=== PATIENT | male | born 1940 | race Caucasian/White ===

== ENCOUNTER 2020-08-02 11:01 | Emergency (ER) | payer MEDICARE, SELFPAY ==
--- NOTE | ~2020-08-02 | XR_ITS ---
EXAMINATION: XR chest 1V portable DATE: 08/02/2020 12:34 INDICATION: Fever, nausea, vomiting, dizziness and cough TECHNIQUE: frontal view of the chest was obtained. COMPARISON: None FINDINGS: Airspace opacities in the right mid and bilateral lower lung zones. No pleural effusion or pneumothor ax. The cardiomediastinal silhouette is within normal limits for AP technique. Surgical clips at the right axilla. IMPRESSION: 1. Opacities in the right mid and bilateral lower lung zones which could represent pneumonia, atelect asis, pulmonary edema or some combination thereof. Reviewed, dictated and finalized at location A. X MACHINE MECHANIC IMPRESSION: 1. Opacities in the right mid and bilateral lower lung zones which could repres ent pneumonia, atelectasis, pulmonary edema or some combination thereof.
[2020-08-02 10:56] VITALS: BP 161/99; PULSE 111; RESP 17; TEMP 37.1; O2SAT 94
--- NOTE | 2020-08-02 11:03 | ED.FEVER ---
HPI - Fever General Chief Complaint: Fever Stated Complaint: dizzy/cough/fever History of Present Illness HPI Narrative: 80 yo male brougt in by EMS from home for fever. He reportedly fell on . Since that time he has not been feeling well. Nausea, vomiting, cough, weakness. Today he began having having fevers as well. He has abrasions to his extremities from the fall. denies significant injury. Related Data Home Medications Medication Instructions Recorded Confirmed amoxicillin-pot clavulanate tablet 08/02/20 cephalexin 08/02/20 fluconazole 08/02/20 glimepiride mg 08/02/20 latanoprost drp 08/02/20 lisinopril 08/02/20 metformin mg 08/02/20 metoprolol tartrate 08/02/20 nitroglycerin 08/02/20 pioglitazone mg 08/02/20 simvastatin mg 08/02/20 sitagliptin [Januvia] mg 08/02/20 tamsulosin mg PO 08/02/20 08/02/20 Allergies Allergy/AdvReac Type Severity Reaction Status Date / Time No Known Drug Allergies Allergy Verified 08/02/20 13:52 Review of Systems Review of Systems: All systems reviewed & are unremarkable except as noted in HPI and below Constitutional: Constitutional: Reports fatigue and Reports fever(s) Eyes: Eyes: Reports no additional eye complaints ENT: Denies dizziness and Denies sore throat Cardiovascular: Cardiovascular: Denies chest pain Respiratory: Respiratory: Reports cough and Denies dyspnea Gastrointestinal: Gastrointestinal: Denies abdominal pain, Reports nausea and Reports vomiting Genitourinary: Genitourinary: Denies hematuria and Denies dysuria Musculoskeletal: Musculoskeletal: Denies back pain Neurologic: Denies confusion and Reports weakness PMFSH Past Medical History Medical History (Updated 08/04/20 @ 15:10 by Rinku Pearson MD) Diabetes mellitus HTN (hypertension) Social History Social History (Updated 08/04/20 @ 15:11 by Rinku Pearson MD) Living arrangements: with family Exam Const: General: no acute distress, alert and ill appearing Nutritional Appearance: well nourished Orientation/consciousness: patient oriented x3 HENMT: Head: normal to inspection Eyes: Pupils: Equal, round and reactive pupils present EOM: EOMs intact bilaterally Neck: Neck: normal visual inspection Resp: Effort & Inspection: normal respiratory effort Auscultation: clear to auscultation bilaterally Cardio: Rate: tachycardic Rhythm: regular rhythm GI: GI Palp: Yes Soft to palpation and No Tenderness to palpation present (GI) Skin: Other: Scattered abrasions Neuro: General: patient oriented x3, moves all extremities, no focal motor deficits and CN's II-XI intact bilaterally Speech: normal speech Gait exam (Neuro): Normal gait present Extrem: General: normal to inspection Course Vital Signs Vital signs: Vital Signs Temperature 37.1 C 08/02/20 10:56 Pulse Rate 111 H 08/02/20 10:56 Respiratory Rate 17 08/02/20 10:56 Blood Pressure 161/99 H 08/02/20 10:56 Pulse Oximetry 94 08/02/20 10:56 Temperature 37.1 C 08/02/20 10:56 Pulse Rate 97 08/02/20 14:57 Respiratory Rate 18 08/02/20 14:57 Blood Pressure 151/92 H 08/02/20 14:57 Pulse Oximetry 94 08/02/20 14:57 MDM - Fever MDM Narrative Medical decision making narrative: Symptoms supiscious for COVID-19. CXR shows mild infiltrate. Hyponatremia likely related to dehydration. Symptoms and vitals improved with treatment. I do not feel he requires admission at this time. He agrees and expresses understanding that he may need to return if symptoms worsen. Differential Diagnosis Differential diagnosis: Likely community acquired pneumonia, sepsis and other (COVID-19) Medical Records Attestation: I reviewed the patient's medical records. Lab Data Result diagrams: 08/02/20 11:38 08/02/20 11:38 Labs: Lab Results 08/02/20 08/02/20 08/02/20 Range/Units 11:38 11:38 11:38 WBC 8.3 (4.5-10.0) K/mm3 RBC 5.42 (4.6-6.20
--- NOTE | 2020-08-02 11:10 | ECG_ITS ---
Measurements Intervals [place] Rate: 104 P: 18 MD: 141 QRS: -5 QRSD: 85 T: 42 QT: 297 QTc: 392 Interpretive Statements SINUS TACHYCARDIA BORDERLINE ECG Electronically Signed On 08-02-2020 12:26:22 RECORD CHANGER by Melo Erazo D.O.
[2020-08-02 11:52] LABS: Basophils Percent Auto 0.2 % (0.2-1.2); Hemoglobin 15.1 g/dL (14.0-18.0); Immature Granulocyte Absolute 0.02 K/mm3 (0.00-0.031); Immature Granulocyte Percent A 0.2 % (0-0.5); Lymphocytes Absolute Auto 2.49 K/mm3 (0.9-3.2); Lymphocytes Percent Auto 30.1 % (18.3-44.2); Mean Corpuscular HGB Conc 33.6 g/dl (32-36); Mean Corpuscular Hemoglobin 27.9 pg (26-34); Mean Platelet Volume 8.8 fl (7.4-10.4); Monocytes Absolute Auto 0.6 K/mm3 (0.1-0.6); Neutrophils Absolute Auto 5.2 K/mm3 (1.3-6.7); Neutrophils Percent Auto 62.5 % (45.5-73.1); Platelet Count Result 131 k/mm3 (150-375); Red Blood Count 5.42 M/mm3 (4.6-6.20); Red Cell Distribution Width 14.3 % (11.5-14.5); White Blood Count 8.3 K/mm3 (4.5-10.0)
[2020-08-02 12:03] LABS: Lactic Acid Reflex 0.9 mmol/L (0.7-2.1)
[2020-08-02 12:07] LABS: Alanine Aminotransferase 39 U/L (4-50); Albumin Level 3.8 g/dL (3.5-5.1); Alkaline Phosphatase 68 U/L (38-126); Anion Gap 9 mmol/L (8-16); Aspartate Amino Transferase 58 U/L (17-59); Bilirubin,Total 0.7 mg/dL (0.2-1.3); Blood Urea Nitrogen 25 mg/dL (9-20); CRP 6.9 mg/dL (<1.0); Calcium 8.7 mg/dL (8.4-10.2); Carbon Dioxide 24 mmol/L (22-30); Chloride 95 mmol/L (98-107); Estimated CRCL calculation 47 ml/min; Estimated Glomerular Filt Rate 53; Glucose 92 mg/dL (75-110); Lipase 62 U/L (23-300); Potassium 4.8 mmol/L (3.4-5.0); Sodium 128 mmol/L (137-145)
[2020-08-02 12:09] LABS: INR 0.8; Prothrombin Time 11.9 Seconds (11.1-14.7)
[2020-08-02 12:10] LABS: Partial Thromboplastin Time 26.6 SECONDS (22.3-36.8)
[2020-08-02 12:40] VITALS: BP 146/95; PULSE 93; RESP 21; O2SAT 95
[2020-08-02] MEDS: SODIUM CHLORIDE 0.9% IV 1,000 ML 999 ML IV CONT (12:40)
[2020-08-02 13:42] VITALS: BP 138/99; PULSE 97; RESP 23; O2SAT 95
[2020-08-02] MEDS: ONDANSETRON INJ 4 MG/2 ML VIAL IV PUSH (13:51)
[2020-08-02 14:09] LABS: Add Urine Microscopic? YES; Appearance Urine Clear (Clear); Bilirubin Urine Negative (Negative); Blood Urine 2+ (Negative); Color Urine Yellow (Yellow); Glucose Urine UA Negative (Negative); Ketones Urine Trace mg/dL (Negative); Leukocyte Esterase Ur Negative LEU/UL (Negative); Mucus Urine Rare /lpf; Nitrate Urine Negative (Negative); Protein Urine 2+ mg/dL (Negative); RBC Urine 0-2 /hpf (0-2); Specific Grav Ur 1.015 (1.001-1.035); Urobilinogen Urine Negative mg/dL (<2.0); WBC Urine 0-3 /hpf
[2020-08-02 14:57] VITALS: BP 151/92; PULSE 97; RESP 18; O2SAT 94
[2020-08-02 20:47] LABS: SARS-CoV-2 RNA PCR Positive
== END 2020-08-02 15:18 | disposition home or self-care (01) ==
PROVIDERS: Emergency Provider Emergency Medicine; PCP Family Medicine
DX: U07.1 COVID-19 (principal); J12.82 Pneumonia due to coronavirus disease 2019; E11.9 Type 2 diabetes mellitus without complications; I10 Essential (primary) hypertension; Z79.84 Long term (current) use of oral hypoglycemic drugs; R00.0 Tachycardia, unspecified
CPT/HCPCS: 36415; 71045; 80053; 81001; 83605; 83690; 85025; 85610; 85730; 86140; 87040; 93005; 96361; 96374; 99284; C9803; J2405; J7030; U0003

== ENCOUNTER 2022-07-19 18:08 | Inpatient (IN) | payer MEDICARE, SELFPAY ==
[2022-07-19] VITALS (50 sets, daily range): BP systolic 123–187; BP diastolic 50–156; PULSE 105–138; RESP 14–29; TEMP 37.9; O2SAT 91–99; BMI 38.0
--- NOTE | ~2022-07-19 | US_ITS ---
EXAMINATION: US renal BI DATE: 07/23/2022 13:08 INDICATION: OSIEL. pls eval bladder for placement of mcdonlad TECHNIQUE: Multiple grayscale and Doppler ultrasound images of the kidneys were obtained. COMPARISON: CT abdomen and pelvis 07/22/2022 FINDINGS: The right kidney measures 11.7 x 5.2 x 4.9 cm. The left kidney measures 12.6 x 5.4 x 4.4 cm. The kidn eys demonstrate normal parenchymal echogenicity. There is no hydronephrosis. The bladder is mostly de compressed by a Mcdonald. IMPRESSION: Unremarkable renal sonogram findings. Reviewed, dictated and finalized at location K. AGE GRINDER
--- NOTE | ~2022-07-19 | XR_ITS ---
XR chest 2V DATE: 07/19/2022 18:55 INDICATION: Weakness. Hypertension. Diabetes mellitus. TECHNIQUE: AP and lateral views COMPARISON: 08/02/2020 portable AP chest FINDINGS: The lateral view is limited by motion. Surgical clips overlie the right axillary area and right lateral chest wall.. Diffuse idiopathic skeletal hyperostosis of the thoracolumbar spine. There is mild patchy bibasilar infiltrate and/or atelectasis. No pleural effusion or pulmonary vascular congestion or pneumothorax. Heart size may be within normal limits considering magnification associated with AP projection. IMPRESSION: Limited examination Bibasilar patchy infiltrate and/or atelectasis Reviewed, dictated and finalized at location A. ENT FORM ASSEMBLER
--- NOTE | ~2022-07-19 | CT_ITS ---
EXAMINATION: CT brain wo con DATE: 07/19/2022 18:46 INDICATION: Altered mental state TECHNIQUE: Computed tomography (CT) of the head was performed without intravenous contrast. The mA wa s adjusted according to patient size. Iterative reconstruction technique was employed. Exam dose: 60 5.33 mGy-cm total exam DLP. COMPARISON: None FINDINGS: Bilateral vertebral artery calcification and prominent bilateral carotid siphon internal ca rotid artery calcifications. There is nonspecific diminished attenuation of the cerebral white matter, likely due to chronic small vessel ischemic changes. No intracranial mass lesion or hemorrhage or cerebrovascular accident is detected. No midline shift o r mass effect. No subdural or epidural hematoma. Moderate cerebral volume loss, mild cerebellar volume loss. Approximately 9 x 16.5 mm mucous retention cyst or polyp in the posterior right maxillary sinus. The right frontal sinus is not developed. Included paranasal sinuses are otherwise unremarkable. Minimal fluid in the right mastoid air cells. Mastoid air cells are otherwise normally developed and aerated. IMPRESSION: Cerebral atherosclerosis and chronic small vessel ischemic changes of the cerebral white matter Cerebral and cerebellar volume loss No acute intracranial finding Reviewed, dictated and finalized at Location A. Reviewed, dictated and finalized at location A. WELDER
--- NOTE | ~2022-07-19 | CT_ITS ---
EXAMINATION: CT abdomen pelvis wo con DATE: 07/22/2022 09:54 INDICATION: Sepsis. Urinary tract infection. TECHNIQUE: Computed tomography (CT) of the abdomen and pelvis was performed without intravenous contr ast. Automated exposure control and iterative reconstruction technique were employed. The dose-length product was 1405.94 mGy-cm. COMPARISON: None. FINDINGS: The visualized portions of the lung bases demonstrate septal thickening with calcifications , architectural distortion, and relatively mild groundglass opacities. No pleural effusion. Calcified right hilar and mediastinal lymph nodes are consistent with old granulomatous disease. The heart siz e is normal. There are coronary artery calcifications. There are calcifications of aortic valve. No p ericardial effusion. The liver and spleen are normal. There are changes of cholecystectomy. The pancr eas, adrenal glands, and right kidney are normal. There is no urolithiasis. There is an 11 mm hemorrh agic cyst in left kidney. There is no urolithiasis. The bladder is decompressed by a Rosa catheter. The prostate is moderately enlarged. There is diverticulosis of the colon without evidence of diverti culitis. The appendix is normal. There are no dilated loops of bowel. There is a mildly enlarged left para-aortic lymph node. There is a left inguinal hernia containing fat. There is severe lumbar spond ylosis. There are bridging endplate osteophytes at multiple levels in the thoracic spine, consistent with diffuse idiopathic skeletal hyperostosis (DISH). IMPRESSION: 1. Mildly enlarged left para-aortic lymph node, likely reactive. 2. Chronic interstitial lung disease in a pattern of usual interstitial pneumonia (UIP). Reviewed, dictated and finalized at location A. OL AGE TEACHER IMPRESSION: 1. Mildly enlarged left para-aortic lymph node, likely reactive. 2. Chronic interstitial lung disease in a pattern of usual interstitial pneumon ia (UIP).
--- NOTE | ~2022-07-19 | US_ITS ---
Renal-Bladder ultrasound Clinical History: Acute renal sufficiency Technique: Real-time sonographic imaging of the kidneys and urinary bladder was performed. Findings: The right kidney measures 12.8 cm in length and the left kidney measures 12.2 cm. There is no hydronephrosis or renal calculus identified. Renal cortical echogenicity is within normal limits. No renal mass lesion is identified. The urinary bladder is collapsed around a Rosa catheter. Impression: Unremarkable ultrasound of the kidneys. Collapsed urinary bladder limits evaluation. Reviewed, dictated and finalized at location M. AGER HAND Impression: Unremarkable ultrasound of the kidneys. Collapsed urinary bladder limits evaluation.
--- NOTE | ~2022-07-19 | US_ITS ---
EXAMINATION: US venous doppler [facility] DATE: 07/22/2022 10:18 INDICATION: Lower limb edema. TECHNIQUE: Grayscale ultrasound images without and with compression and Doppler ultrasound images of the bilateral lower extremity veins were obtained. COMPARISON: None. FINDINGS: The visualized portions of right common femoral vein, profunda (deep) femoral vein, femoral vein, pop liteal vein, peroneal veins, posterior tibial veins, and greater saphenous vein outflow are patent. The visualized portions of left common femoral vein, profunda femoral vein, femoral vein, popliteal v ein, peroneal veins, posterior tibial veins, and greater saphenous vein outflow are patent. IMPRESSION: 1. No deep venous thrombosis. Reviewed, dictated and finalized at location A. OO IDENTIFIER
--- NOTE | ~2022-07-19 | US_ITS ---
US scrotum doppler DATE: 07/22/2022 18:23 INDICATION: Right scrotal swelling, tenderness, induration TECHNIQUE: Real-time and color flow imaging and Doppler analysis COMPARISON: 07/22/2022 CT abdomen pelvis FINDINGS: Right testicle measures 4.3 x 3.3 x 3.2 cm, left testicle 4.1 x 2.9 x 2.8 cm. There is symmetric homogeneous echotexture of the testicles without evidence of testicular mass lesio n. No evidence of testicular torsion. There is a complicated small right hydrocele and smaller left hydrocele. There is increased size and vascularity of the right epididymis suggesting right epididymitis. IMPRESSION: No testicular mass lesion or torsion Right epididymitis, complicated right hydrocele Reviewed, dictated and finalized at Location A. Reviewed, dictated and finalized at location A. INTENSIVE CARE UNIT
--- NOTE | ~2022-07-19 | XR_ITS ---
Portable chest x-ray Comparison: 07/19/2022 Clinical History: Leukocytosis Findings: There is probable bibasilar chronic interstitial disease. Cardiomediastinal silhouette is stable. Bones and soft tissues are unremarkable. Impression: Stable probable chronic bibasilar interstitial disease. Reviewed, dictated and finalized at [facility]. MODEL Impression: Stable probable chronic bibasilar interstitial disease.
--- NOTE | 2022-07-19 18:20 | ECG_ITS ---
Measurements Intervals [place] Rate: 105 P: 9 GA: 164 QRS: -3 QRSD: 103 T: 32 QT: 264 QTc: 349 Interpretive Statements SINUS TACHYCARDIA WITH OCCASIONAL SUPRAVENTRICULAR PREMATURE COMPLEXES COMPARED TO ECG 08/02/2020 11:07:08 NO SIGNIFICANT CHANGES Electronically Signed On 07-20-2022 17:50:00 CONTACT CENTER TEAM LEAD by Nessa Lynn M.D.
--- NOTE | 2022-07-19 18:20 | ECG_ITS ---
Measurements Intervals [place] Rate: 106 P: ME: 0 QRS: -13 QRSD: 98 T: 6 QT: 264 QTc: 352 Interpretive Statements LIKELY SINUS TACHYCARDIA, SIGNIFICANT BASELINE ARTIFACT COMPARED TO ECG 08/02/2020 11:07:08 BASELINE ARTIFACT LIMITS INTERPRETATION Electronically Signed On 07-20-2022 17:49:43 TILE MOLDER by Nessa Lynn M.D.
--- NOTE | 2022-07-19 18:28 | ED.GENADULT ---
HPI - General Adult General Chief complaint: Weakness Stated complaint: lethargic Time Seen by Provider: 07/19/22 18:11 History of Present Illness HPI narrative: Patient is an 82-year-old male with a history of diabetes, hypertension, hyperlipidemia presenting with generalized weakness. Patient was able to go to work today. States that he felt generally weak but felt at baseline. As he was getting ready to leave, he had an episode of vomiting and then he was trembly so his boss called his . The patient insisted on driving himself home. Unfortunately, on the drive home, he was noted to be driving recklessly so police stopped him. Police were concerned that he had been drinking but the patient states that he has never been a drinker. States that he has had multiple episodes of emesis and he feels nauseated if he moves. He denies headache, vision changes, numbness, weakness. Patient is on Eliquis. He denies any chest pain, lightheadedness, shortness of breath, abdominal pain, leg swelling, diarrhea. Related Data Home Medications Medication Instructions Recorded Confirmed glimepiride 4 mg tablet 4 mg PO DAILY 08/02/20 07/20/22 latanoprost 0.005 % eye drops 1 drp ophthalmic (eye) DAILY 08/02/20 07/20/22 lisinopril 10 mg tablet 10 mg PO DAILY 08/02/20 07/20/22 metformin 1,000 mg tablet 1,000 mg PO BID 08/02/20 07/20/22 metoprolol tartrate 25 mg tablet 25 mg PO BID 08/02/20 07/20/22 tamsulosin 0.4 mg capsule 0.4 mg PO DAILY 08/02/20 07/20/22 apixaban 5 mg tablet (Eliquis) 5 mg PO BID 07/20/22 07/20/22 ascorbic acid (vitamin C) 500 mg 500 mg PO DAILY 07/20/22 07/20/22 tablet cholecalciferol (vitamin D3) 50 50 mcg PO DAILY 07/20/22 07/20/22 mcg (2,000 unit) tablet cyanocobalamin (vitamin B-12) 1,000 mcg PO DAILY 07/20/22 07/20/22 1,000 mcg tablet finasteride 5 mg tablet (Proscar) 5 mg PO DAILY 07/20/22 07/20/22 furosemide 40 mg tablet 40 mg PO BID 07/20/22 07/20/22 insulin aspart U-100 100 unit/mL 8 unit subcut TIDWM 07/20/22 07/20/22 (3 mL) subcutaneous pen (Novolog Flexpen U-100 Insulin aspart) rosuvastatin 20 mg tablet 10 mg PO DAILY 07/20/22 07/20/22 timolol maleate 0.5 % eye drops 1 drp ophthalmic (eye) BID 07/20/22 07/20/22 Allergies Allergy/AdvReac Type Severity Reaction Status Date / Time No Known Drug Allergies Allergy Verified 08/02/20 13:52 Review of Systems Review of Systems: All systems reviewed & are unremarkable except as noted in HPI and below PMFSH Past Medical History Medical History (Updated 07/22/22 @ 11:06 by Mayuri Adasm MD) Atrial fibrillation Diabetes mellitus HTN (hypertension) Social History Social History Smoking status: Never smoker Alcohol intake: never Substance use: never Lack of Transportation: No Lack of Food: Never True Current Housing: I Have Housing Concerned About Future Housing: No Difficulty Paying Gas/Electric Bills: No Difficulty Paying for Meds: No Currently Unemployed: No Education: Decline to Answer Difficulty w/ Childcare or Family Care: No Gender identity (if verbalized by the patient): Male Spiritual care concerns: No Exam Narrative: GENERAL: Alert, cooperative, in no acute distress HEAD: Normocephalic, atraumatic. Small amount of emesis right face EYES: PERRLA and EOMI. ENT: Nares clear, no rhinorrhea or epistaxis. Mucous membranes moist. NECK: Supple. CHEST: Clear to auscultation. No respiratory distress. HEART: Tachycardic, regular rhythm. No murmur heard. Normal peripheral pulses. ABDOMEN: Soft, nontender, nondistended, normal active bowel sounds. EXTREMITIES: Normal range of motion. No edema. SKIN: Warm, dry, no rash. NEURO: No focal deficits. Alert and oriented x3. PSYCH: Normal mood and affect. Course Vital Signs Vital signs: Vital Signs Pulse Rate 108 H 07/19/22 18:22 Respiratory Rate 24 H 07/19/22 18:22 Pulse Oximetry 98 07/19/22
[2022-07-19] MEDS: SODIUM CHLORIDE 0.9% IV 1,000 ML 999 ML IV CONT ×2 (19:22→20:09)
[2022-07-19 19:29] LABS: Basophils Absolute Auto 0.1 K/mm3 (0.0-0.1); Basophils Percent Auto 0.4 % (0.2-1.2); Eosinophils Percent Auto 0.1 % (0-4.4); Hematocrit 36.4 % (42.0-52.0); Hemoglobin 11.6 g/dL (14.0-18.0); Immature Granulocyte Absolute 0.07 K/mm3 (0.00-0.031); Immature Granulocyte Percent A 0.4 % (0-0.5); Lymphocytes Percent Auto 17.3 % (18.3-44.2); Mean Corpuscular HGB Conc 31.9 g/dl (32-36); Mean Corpuscular Hemoglobin 28.4 pg (26-34); Mean Platelet Volume 8.7 fl (7.4-10.4); Neutrophils Absolute Auto 12.3 K/mm3 (1.3-6.7); Neutrophils Percent Auto 75.8 % (45.5-73.1); Nucleated Red Blood Cells Perc 0.1 % (0.0-0.2); Platelet Count Result 155 k/mm3 (150-375); Red Blood Count 4.09 M/mm3 (4.6-6.20); Red Cell Distribution Width 16.5 % (11.5-14.5); White Blood Count 16.2 K/mm3 (4.5-10.0)
[2022-07-19 19:37] LABS: Lactic Acid Reflex 1.4 mmol/L (0.7-2.0)
[2022-07-19 19:41] LABS: Ethanol < 10 mg/dL (<10)
[2022-07-19 19:57] LABS: Alanine Aminotransferase 47 U/L (6-50); Alkaline Phosphatase 72 U/L (38-126); Anion Gap 6 mmol/L (8-16); Aspartate Amino Transferase 42 U/L (17-59); Bilirubin,Total 0.7 mg/dL (0.2-1.3); Blood Urea Nitrogen 26 mg/dL (9-20); Calcium 8.4 mg/dL (8.4-10.2); Carbon Dioxide 31 mmol/L (22-30); Chloride 94 mmol/L (98-107); Estimated CRCL calculation 46 ml/min; Estimated Glomerular Filt Rate 53; Glucose 167 mg/dL (65-110); Lipase 59 U/L (23-300); Potassium 3.2 mmol/L (3.4-5.0); Sodium 131 mmol/L (137-145)
[2022-07-19] MEDS: cefTRIAXone 2 GM in SODIUM CHLORIDE 0.9% IV 100 ML 200 ML IVPB (20:33)
[2022-07-19 20:54] LABS: Add Urine Microscopic? YES; Appearance Urine Cloudy (Clear); Bilirubin Urine Negative (Negative); Blood Urine 2+ (Negative); Glucose Urine UA Negative (Negative); Ketones Urine Negative (Negative); Leukocyte Esterase Ur 3+ LEU/UL (Negative); Nitrate Urine Negative (Negative); Protein Urine 1+ mg/dL (Negative); Urobilinogen Urine 0.2 mg/dL (<2.0)
[2022-07-19 21:03] LABS: Bacteria Urine 4+ /hpf; Color Urine Light Yellow (Yellow); RBC Urine >75 /hpf (0-2); WBC Clumps Urine Present /HPF; WBC Urine >75 /hpf
[2022-07-19 21:07] LABS: Influenza A QL RT-PCR Negative (Negative); Influenza B QL RT-PCR Negative (Negative); SARS-CoV-2 RNA PCR Negative
--- NOTE | 2022-07-19 21:59 | PM.IMHP ---
H&P: HPI History of Present Illness Date/Time: 07/19/22 21:59 Chief Complaint: Altered mental status Narrative: This is an 82-year-old gentleman with a past medical history including but not limited to hypertension, [id number] diabetes mellitus, BPH, dyslipidemia, CKD presenting with generalized weakness. The patient is fully independent at 82, continues to drive and goes to work. 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 Patient was able to go to work today.? The patient has felt generally weak but felt at baseline.? As he was getting ready to leave work, he had an episode of vomiting and then he was shaky so his boss called his .? The patient insisted on driving himself home.? Unfortunately, on the drive home, he was noted to be swerving from [place] and had to be stopped by the local police.? Police were concerned that he had been drinking but the patient states that he has never been a drinker.? States that he has had multiple episodes of emesis and he feels nauseated if he moves.? He denies headache, vision changes, numbness, weakness.? Patient is on Eliquis.? He denies any chest pain, lightheadedness, shortness of breath, abdominal pain, diarrhea. O inspection, lower extremity edema is prominent. On arrival to the emergency department the patient had the following vital signs: a blood pressure of 144/57, pulse rate of 118, respiratory rate of 21, a pulse ox of 98% on 2 L high-flow nasal cannula. He he CBC shows a WBC of 16.2, hemoglobin 11.6, hematocrit 36.4 and a platelet count of 155. His chemistry shows a sodium of 131, potassium 3.2, sugar 94, serum bicarbonate 31, BUN 26, creatinine 1.3. Glucose is 167. Lactic acid is 1.4. Total bilirubin 0.7, AST 42, ALT 47, alkaline phosphatase 72. Total protein 7.0/albumin 4.0. Lipase is 59. TSH is pending. Urinalysis shows cloudy urine, 1+ protein, 2+ blood, 3+ leukocyte esterase, negative nitrate, RBC more than 75 WBC more than 75 and 4+ urine bacteria. Urine cultures and blood have been sent and are pending at the time of this dictation. Chest x-ray shows bibasilar patchy infiltrate and or atelectasis. Head CT shows cerebral atherosclerosis and chronic small-vessel ischemic changes of the cerebral white matter. Cerebral and cerebellar volume loss. No acute intracranial finding. the patient was appropriately started on ceftriaxone. Hospital Services was consulted for further evaluation and management. Review of Systems Review of Systems: All systems reviewed & are unremarkable except as noted in HPI and below Constitutional: Constitutional: Reports as per HPI Comments: Confusion. Eyes: Eyes: Reports as per HPI and Denies blurry vision ENT: Reports system reviewed and no additional complaints, except as documented, Denies epistaxis and Denies tinnitus Cardiovascular: Cardiovascular: Reports as per HPI, Denies leg edema and Reports palpitations Respiratory: Respiratory: Reports as per HPI, Denies cough and Denies dyspnea Gastrointestinal: Gastrointestinal: Reports as per HPI, Denies diarrhea, Denies nausea and Denies vomiting Genitourinary: Genitourinary: Reports as per HPI, Denies dysuria, Reports nocturia, Reports urinary frequency, Reports urinary hesitancy and Reports other Comments: Foul-smelling urine. Musculoskeletal: Musculoskeletal: Reports no additional musculoskeletal complaints, Reports as per HPI, Denies back pain, Denies arthralgias and Denies joint swelling Endocrine: Endocrine: Reports palpitations PMFSH Past Medical History Medical History Atrial fibrillation Diabetes mellitus HTN (hypertension) Social History Social History Smoking status: Never smoker Alcohol intake: never Substance use: never Lack of Transportation: No Lack of Food: Never True Current Housing: I Have Housing Co
[2022-07-20] VITALS (19 sets, daily range): BP systolic 94–102; BP diastolic 48–78; PULSE 64–130; RESP 16–20; TEMP 36.1–39.2; O2SAT 94–95
[2022-07-20] MEDS: METOPROLOL TARTRATE 25 MG TABLET PO ×3 (00:31→21:42)
[2022-07-20] MEDS: FUROSEMIDE INJ 40 MG/4 ML VIAL IV PUSH ×2 (00:31→08:21)
[2022-07-20] MEDS: METOPROLOL TARTRATE INJ 5 MG/5 ML VIAL 2.5 MG IV PUSH (00:37)
[2022-07-20] MEDS: POTASSIUM CHLORIDE 20 MEQ TABLET PO ×2 (01:04→17:40)
[2022-07-20] MEDS: AMIODARONE HCL 200 MG TABLET PO ×3 (01:27→17:10)
[2022-07-20 08:53] LABS: Glucose Point of Care 151 mg/dl (65-105)
[2022-07-20] MEDS: ROSUVASTATIN 10 MG TABLET PO (10:39)
[2022-07-20] MEDS: TAMSULOSIN HCL 0.4 MG CAPSULE PO (10:39)
[2022-07-20] MEDS: lisinopriL 10 MG TABLET PO (10:39)
[2022-07-20] MEDS: TIMOLOL MALEATE 0.5% OP SOLN 5 ML BOTTLE 1 DROP EACH EYE ×2 (10:39→17:12)
[2022-07-20] MEDS: APIXABAN 5 MG TABLET PO ×2 (10:39→17:10)
[2022-07-20 11:02] LABS: Basophils Absolute Auto 0.1 K/mm3 (0.0-0.1); Basophils Percent Auto 0.2 % (0.2-1.2); Hematocrit 38.2 % (42.0-52.0); Hemoglobin 12.2 g/dL (14.0-18.0); Immature Granulocyte Absolute 0.33 K/mm3 (0.00-0.031); Immature Granulocyte Percent A 1.1 % (0-0.5); Lymphocytes Absolute Auto 3.27 K/mm3 (0.9-3.2); Lymphocytes Percent Auto 11.1 % (18.3-44.2); Mean Corpuscular HGB Conc 31.9 g/dl (32-36); Mean Corpuscular Hemoglobin 28.6 pg (26-34); Mean Corpuscular Volume 89.7 fl (80-100); Mean Platelet Volume 8.7 fl (7.4-10.4); Monocytes Absolute Auto 2.3 K/mm3 (0.1-0.6); Monocytes Percent Auto 7.9 % (2.6-8.5); Neutrophils Absolute Auto 23.4 K/mm3 (1.3-6.7); Neutrophils Percent Auto 79.7 % (45.5-73.1); Platelet Count Result 167 k/mm3 (150-375); Red Blood Count 4.26 M/mm3 (4.6-6.20); Red Cell Distribution Width 16.7 % (11.5-14.5); White Blood Count 29.4 K/mm3 (4.5-10.0)
[2022-07-20 11:06] LABS: Hemoglobin A1C 8.2 % (<5.7)
[2022-07-20 11:07] LABS: Anion Gap 10 mmol/L (8-16); Blood Urea Nitrogen 24 mg/dL (9-20); Carbon Dioxide 29 mmol/L (22-30); Chloride 97 mmol/L (98-107); Estimated CRCL calculation 33 ml/min; Estimated Glomerular Filt Rate 36; Glucose 174 mg/dL (65-110); Potassium 3.4 mmol/L (3.4-5.0); Sodium 136 mmol/L (137-145)
[2022-07-20 11:54] LABS: Glucose Point of Care 233 mg/dl (65-105)
[2022-07-20] MEDS: INSULIN ASPART (*BKC) 100 UNITS/ML SUB-Q ×3 (12:18→17:11)
--- NOTE | 2022-07-20 16:11 | P.PNIM_ITS ---
Progress Note: A&P Assessment and Plan (1) Sepsis: Code(s): A41.9 - Sepsis, unspecified organism Status: Acute Assessment and Plan: septic on presentation evident by fever, tachycardia, leukocytosis in the set ting of acute UTI * lactic within normal limits * continue IV antibiotics as described below * patient was adequately rehydrated with IV fluids. avoid further IV fluids given history of CHF * T-max 102.6? this morning. Remaining afebrile this afternoon * increase in leukocytosis to 29.4 today. Monitor CBC with differential closely * blood cultures are pending (2) UTI (urinary tract infection): Code(s): N39.0 - Urinary tract infection, site not specified Status: Acute Assessment and Plan: urinalysis grossly abnormal on presentation * continue with IV ceftriaxone and vancomycin * urine cultures pending, await results and tailor antibiotics accordingly * continue with Rosa catheter while awaiting urine culture results then will plan for removal and voiding trial (3) Altered mental status: Code(s): R41.82 - Altered mental status, unspecified Status: Acute Assessment and Plan: likely secondary to urinary tract infection * mental status has returned back to baseline * plan as above (4) Acute kidney injury: Code(s): N17.9 - Acute kidney failure, unspecified Status: Acute Assessment and Plan: baseline creatinine appears to be 1.3. creatinine elevated to 1.8 today * likely secondary to IV diuresis * will hold furosemide at this time. Also hold metformin * hold off on IV fluids given history of CHF and risk for volume overload * anticipate creatinine to trend back to baseline * consider renal ultrasound if no improvement * monitor BMP closely (5) Hypokalemia: Code(s): E87.6 - Hypokalemia Status: Acute Assessment and Plan: resolved. Potassium 3.4 today * monitor BMP * will give an additional 20 mEq p.o. KCl given IV diuresis (6) Chronic heart failure: Code(s): I50.9 - Heart failure, unspecified Status: Acute Assessment and Plan: history of CHF, no prior echo available for review * patient noted to be mildly edematous on presentation, therefore given IV Lasix 40 mg IV b.i.d. * volume status appears improved and creatinine is elevated, therefore will discontinue IV Lasix at this time * monitor intake and output and weight daily * heart healthy diet (7) Atrial fibrillation: Code(s): I48.91 - Unspecified atrial fibrillation Status: Acute Assessment and Plan: Tachycardic on presentation, however suspect this is related to sepsis. Patient is in sinus rhythm. * Continue metoprolol tartrate and amiodarone * continue Eliquis for stroke prophylaxis * monitor on telemetry (8) Diabetes mellitus: Code(s): E11.9 - Type 2 diabetes mellitus without complications Status: Acute Assessment and Plan: A1c is 8.2 * continue Accu-Cheks, sliding scale insulin, hypoglycemic protocol * NovoLog 8 units t.i.d. with meals * hold home metformin and glimepiride Subjective Date/time seen: 07/20/22 16:11 Interval history: date of service: 07/20/2022 Jaguar Peters is an 82-year-old male with a history of diabetes mellitus, hypertension, atrial fibrillation, BPH who is seen in follow-up for urinary tract infection. Patient feels improved today though does endorse feeling fatigued. H
--- NOTE | 2022-07-20 16:11 | PM.IMPN ---
Progress Note: A&P Assessment and Plan (1) Sepsis: Code(s): A41.9 - Sepsis, unspecified organism Status: Acute Assessment and Plan: septic on presentation evident by fever, tachycardia, leukocytosis in the setting of acute UTI lactic within normal limits continue IV antibiotics as described below patient was adequately rehydrated with IV fluids. avoid further IV fluids given history of CHF T-max 102.6? this morning. Remaining afebrile this afternoon increase in leukocytosis to 29.4 today. Monitor CBC with differential closely blood cultures are pending (2) UTI (urinary tract infection): Code(s): N39.0 - Urinary tract infection, site not specified Status: Acute Assessment and Plan: urinalysis grossly abnormal on presentation continue with IV ceftriaxone and vancomycin urine cultures pending, await results and tailor antibiotics accordingly continue with Rosa catheter while awaiting urine culture results then will plan for removal and voiding trial (3) Altered mental status: Code(s): R41.82 - Altered mental status, unspecified Status: Acute Assessment and Plan: likely secondary to urinary tract infection mental status has returned back to baseline plan as above (4) Acute kidney injury: Code(s): N17.9 - Acute kidney failure, unspecified Status: Acute Assessment and Plan: baseline creatinine appears to be 1.3. creatinine elevated to 1.8 today likely secondary to IV diuresis will hold furosemide at this time. Also hold metformin hold off on IV fluids given history of CHF and risk for volume overload anticipate creatinine to trend back to baseline consider renal ultrasound if no improvement monitor BMP closely (5) Hypokalemia: Code(s): E87.6 - Hypokalemia Status: Acute Assessment and Plan: resolved. Potassium 3.4 today monitor BMP will give an additional 20 mEq p.o. KCl given IV diuresis (6) Chronic heart failure: Code(s): I50.9 - Heart failure, unspecified Status: Acute Assessment and Plan: history of CHF, no prior echo available for review patient noted to be mildly edematous on presentation, therefore given IV Lasix 40 mg IV b.i.d. volume status appears improved and creatinine is elevated, therefore will discontinue IV Lasix at this time monitor intake and output and weight daily heart healthy diet (7) Atrial fibrillation: Code(s): I48.91 - Unspecified atrial fibrillation Status: Acute Assessment and Plan: Tachycardic on presentation, however suspect this is related to sepsis. Patient is in sinus rhythm. Continue metoprolol tartrate and amiodarone continue Eliquis for stroke prophylaxis monitor on telemetry (8) Diabetes mellitus: Code(s): E11.9 - Type 2 diabetes mellitus without complications Status: Acute Assessment and Plan: A1c is 8.2 continue Accu-Cheks, sliding scale insulin, hypoglycemic protocol NovoLog 8 units t.i.d. with meals hold home metformin and glimepiride Subjective Date/time seen: 07/20/22 16:11 Interval history: date of service: 07/20/2022 Jaguar Peters is an 82-year-old male with a history of diabetes mellitus, hypertension, atrial fibrillation, BPH who is seen in follow-up for urinary tract infection. Patient feels improved today though does endorse feeling fatigued. He feels that his confusion has resolved. He denies dysuria, hematuria, urgency, or frequency. He did have urinary retention on presentation and Rosa catheter was started. Patient reports he has had issues with urinary retention in the past. Denies flank pain, abdominal pain, or back pain. No shortness of breath, cough, chest pain, or palpitations. Denies nausea or vomiting and is tolerating his diet. Endorsed fevers and chills but this seems to have resolved today. Marce
[2022-07-20 17:07] LABS: Glucose Point of Care 259 mg/dl (65-105)
[2022-07-20] MEDS: LATANOPROST 0.005% OP SOLN 2.5 ML BTL 1 DROP EACH EYE (21:42)
[2022-07-20] MEDS: cefTRIAXone 1 GM in DEXTROSE 5% IN WATER 50 ML IVPB (21:51)
[2022-07-21] VITALS (17 sets, daily range): BP systolic 82–141; BP diastolic 40–86; PULSE 81–140; RESP 18–24; TEMP 36.6–37.1; O2SAT 91–95
[2022-07-21 01:10] LABS: Glucose Point of Care 202 mg/dl (65-105)
[2022-07-21] MEDS: ONDANSETRON INJ 4 MG/2 ML VIAL IV PUSH ×2 (03:56→09:41)
[2022-07-21 05:25] LABS: Hematocrit 34.6 % (42.0-52.0); Mean Corpuscular HGB Conc 31.8 g/dl (32-36); Mean Corpuscular Hemoglobin 28.6 pg (26-34); Mean Corpuscular Volume 90.1 fl (80-100); Mean Platelet Volume 8.8 fl (7.4-10.4); Platelet Count Result 151 k/mm3 (150-375); Red Blood Count 3.84 M/mm3 (4.6-6.20); Red Cell Distribution Width 16.5 % (11.5-14.5); White Blood Count 25.4 K/mm3 (4.5-10.0)
[2022-07-21 05:40] LABS: Alanine Aminotransferase 41 U/L (6-50); Albumin Level 2.9 g/dL (3.5-5.1); Alkaline Phosphatase 64 U/L (38-126); Anion Gap 5 mmol/L (8-16); Aspartate Amino Transferase 70 U/L (17-59); Bilirubin,Total 0.9 mg/dL (0.2-1.3); Blood Urea Nitrogen 39 mg/dL (9-20); Calcium 7.5 mg/dL (8.4-10.2); Carbon Dioxide 29 mmol/L (22-30); Chloride 95 mmol/L (98-107); Estimated CRCL calculation 25 ml/min; Estimated Glomerular Filt Rate 26; Glucose 190 mg/dL (65-110); Potassium 3.3 mmol/L (3.4-5.0); Sodium 129 mmol/L (137-145)
[2022-07-21 07:10] LABS: Band Neutrophils Percent 16 % (0-6); Lymphocytes Absolute Manual 2.28 K/mm3 (1.1-4.5); Metamyelocytes Percent 1 %; Monocytes Absolute Manual 1.52 K/mm3 (0.1-0.90); Monocytes Percent Manual 6 % (3-9); Neutrophils Absolute Manual 21.33 K/mm3 (1.3-6.7); Neutrophils Percent Manual 68 % (46-73); Platelet Estimate Adequate (Adequate); Schistocytes None Seen (NORMAL); Total Cells Counted 100
[2022-07-21] MEDS: METOPROLOL TARTRATE 25 MG TABLET PO ×2 (07:45→21:48)
[2022-07-21] MEDS: SODIUM CHLORIDE 0.9% IV 500 ML IV CONT ×3 (08:30→18:41)
[2022-07-21 08:33] LABS: Glucose Point of Care 175 mg/dl (65-105)
[2022-07-21] MEDS: CHOLECALCIFEROL 1,000 UNITS TABLET 2000 UNITS PO (08:33)
[2022-07-21] MEDS: FINASTERIDE 5 MG TABLET PO (08:33)
[2022-07-21] MEDS: TAMSULOSIN HCL 0.4 MG CAPSULE PO (08:33)
[2022-07-21] MEDS: CYANOCOBALAMIN 1,000 MCG TABLET 1000 MCG PO (08:34)
[2022-07-21] MEDS: ASCORBIC ACID 500 MG TABLET PO (08:34)
[2022-07-21] MEDS: APIXABAN 5 MG TABLET PO ×2 (08:34→20:04)
[2022-07-21] MEDS: ROSUVASTATIN 10 MG TABLET PO (08:34)
--- NOTE | 2022-07-21 08:34 | PCOTNOTE ---
Per RN hold therapy for morning due to decreased blood pressure. Patient additionally has bedrest orders in at this time, RN aware. Will follow.
[2022-07-21] MEDS: TIMOLOL MALEATE 0.5% OP SOLN 5 ML BOTTLE 1 DROP EACH EYE (08:35)
[2022-07-21] MEDS: AMIODARONE HCL 200 MG TABLET PO ×2 (10:33→20:04)
[2022-07-21] MEDS: cefTRIAXone 2 GM in SODIUM CHLORIDE 0.9% IV 100 ML 200 ML IVPB (12:17)
[2022-07-21 12:39] LABS: Glucose Point of Care 222 mg/dl (65-105)
--- NOTE | 2022-07-21 12:45 | P.PNIM_ITS ---
Progress Note: A&P Assessment and Plan (1) Sepsis: Code(s): A41.9 - Sepsis, unspecified organism Status: Acute Assessment and Plan: septic on presentation evident by fever, tachycardia, leukocytosis in the set ting of acute UTI * lactic within normal limits * continue IV antibiotics as described below * patient tachycardic up to 140s with soft BP in the 80s systolic today secondary to sepsis. Received 500 cc IV fluid bolus with improvement in heart rate and blood pressure. Hold on further IV fluids at this time given history of CHF to avoid volume overload. Monitor volume status, blood pressures, heart rate closely * T-max 102.6? yesterday. Remaining afebrile today * slight improvement in leukocytosis to 25.4 today. Monitor CBC with differential closely * blood cultures are pending, negative to date (2) UTI (urinary tract infection): Code(s): N39.0 - Urinary tract infection, site not specified Status: Acute Assessment and Plan: urinalysis grossly abnormal on presentation * Urine culture with growth of >100k Klebsiella pneumoniae * Increase IV ceftriaxone to 2 g daily in light of sepsis * Vancomycin discontinued based on culture results * Continue with Mcdonald catheter at this time. Plan for removal and voiding trial pending improvement of acute infection (3) Altered mental status: Code(s): R41.82 - Altered mental status, unspecified Status: Resolved Assessment and Plan: likely secondary to urinary tract infection * mental status has returned back to baseline * plan as above (4) Acute kidney injury: Code(s): N17.9 - Acute kidney failure, unspecified Status: Acute Assessment and Plan: Baseline creatinine appears to be 1.3. Creatinine elevated to 2.4 today * likely prerenal secondary to dehydration/diuresis vs ATN from acute infection * furosemide on hold * discontinued vancomycin. this may be contributing to worsened renal function * metformin and lisinopril on hold * obstructive etiology unlikely as patient has draining mcdonald catheter * renal US unremarkable, no evidence of hydronephrosis or renal calculi * received 500 cc IV fluid bolus today. Hold on further IV fluids as noted above * monitor BMP closely and consider nephrology consultation if worsening renal function (5) Hypokalemia: Code(s): E87.6 - Hypokalemia Status: Acute Assessment and Plan: Potassium 3.3 today * monitor BMP * supplemet KCl 20 mEq (6) Chronic heart failure: Code(s): I50.9 - Heart failure, unspecified Status: Acute Assessment and Plan: history of CHF, no prior echo available for review * patient noted to be mildly edematous on presentation, therefore given IV Lasix 40 mg IV b.i.d. * volume status improved and with elevated creatinine, lasix is on hold * monitor intake and output and weigh daily * heart healthy diet (7) Atrial fibrillation: Code(s): I48.91 - Unspecified atrial fibrillation Status: Acute Assessment and Plan: Tachycardic on presentation, however suspect this is related to sepsis. Patient is in sinus rhythm. * Continue metoprolol tartrate and amiodarone * continue Eliquis for stroke prophylaxis * monitor on telemetry (8) Diabetes mellitus: Code(s): E11.9 - Type 2 diabetes mellitus without complications Status: Acute Assessment and Plan: A1c is 8.2 * continue Accu-Cheks, sliding scale insulin, hypoglycemic protocol * Nov
--- NOTE | 2022-07-21 12:45 | PM.IMPN ---
Progress Note: A&P Assessment and Plan (1) Sepsis: Code(s): A41.9 - Sepsis, unspecified organism Status: Acute Assessment and Plan: septic on presentation evident by fever, tachycardia, leukocytosis in the setting of acute UTI lactic within normal limits continue IV antibiotics as described below patient tachycardic up to 140s with soft BP in the 80s systolic today secondary to sepsis. Received 500 cc IV fluid bolus with improvement in heart rate and blood pressure. Hold on further IV fluids at this time given history of CHF to avoid volume overload. Monitor volume status, blood pressures, heart rate closely T-max 102.6? yesterday. Remaining afebrile today slight improvement in leukocytosis to 25.4 today. Monitor CBC with differential closely blood cultures are pending, negative to date (2) UTI (urinary tract infection): Code(s): N39.0 - Urinary tract infection, site not specified Status: Acute Assessment and Plan: urinalysis grossly abnormal on presentation Urine culture with growth of >100k Klebsiella pneumoniae Increase IV ceftriaxone to 2 g daily in light of sepsis Vancomycin discontinued based on culture results Continue with Mcdonald catheter at this time. Plan for removal and voiding trial pending improvement of acute infection (3) Altered mental status: Code(s): R41.82 - Altered mental status, unspecified Status: Resolved Assessment and Plan: likely secondary to urinary tract infection mental status has returned back to baseline plan as above (4) Acute kidney injury: Code(s): N17.9 - Acute kidney failure, unspecified Status: Acute Assessment and Plan: Baseline creatinine appears to be 1.3. Creatinine elevated to 2.4 today likely prerenal secondary to dehydration/diuresis vs ATN from acute infection furosemide on hold discontinued vancomycin. this may be contributing to worsened renal function metformin and lisinopril on hold obstructive etiology unlikely as patient has draining mcdonald catheter renal US unremarkable, no evidence of hydronephrosis or renal calculi received 500 cc IV fluid bolus today. Hold on further IV fluids as noted above monitor BMP closely and consider nephrology consultation if worsening renal function (5) Hypokalemia: Code(s): E87.6 - Hypokalemia Status: Acute Assessment and Plan: Potassium 3.3 today monitor BMP supplemet KCl 20 mEq (6) Chronic heart failure: Code(s): I50.9 - Heart failure, unspecified Status: Acute Assessment and Plan: history of CHF, no prior echo available for review patient noted to be mildly edematous on presentation, therefore given IV Lasix 40 mg IV b.i.d. volume status improved and with elevated creatinine, lasix is on hold monitor intake and output and weigh daily heart healthy diet (7) Atrial fibrillation: Code(s): I48.91 - Unspecified atrial fibrillation Status: Acute Assessment and Plan: Tachycardic on presentation, however suspect this is related to sepsis. Patient is in sinus rhythm. Continue metoprolol tartrate and amiodarone continue Eliquis for stroke prophylaxis monitor on telemetry (8) Diabetes mellitus: Code(s): E11.9 - Type 2 diabetes mellitus without complications Status: Acute Assessment and Plan: A1c is 8.2 continue Accu-Cheks, sliding scale insulin, hypoglycemic protocol NovoLog 8 units t.i.d. with meals hold home metformin and glimepiride Time Spent With Patient Time with patient: 25 - 35 minutes Subjective Date/time seen: 07/21/22 12:45 Interval history: Date of service: 07/21/2022 Jaguar Peters is an 82-year-old male with a history of diabetes mellitus, hypertension, atrial fibrillation, BPH who is seen in follow-up for urinary tract infection. He feels weak and drowsy. He has poor appetite. He
[2022-07-21] MEDS: INSULIN ASPART (*BKC) 100 UNITS/ML SUB-Q ×3 (13:27→17:46)
--- NOTE | 2022-07-21 17:24 | PM.EVENT ---
Event Note Event Note Event Note: This is an 82-year-old male patient who has a history of atrial fibrillation. The patient is currently on amiodarone. His blood pressure has dropped and his heart rate is up in the 120s. He has had several boluses. The patient is being transferred to IMU due to the AFib RVR. I did order some digoxin for him. In the event that his heart rate does not come down then we will do amiodarone drip.
[2022-07-21 17:34] LABS: Glucose Point of Care 222 mg/dl (65-105)
--- NOTE | 2022-07-21 19:02 | PC.NURSE ---
This patient, Jaguar Peters, was transferred to IMU on 07/21/22 at 1903. Personal belongings sent with patient. Report given to Arely VELAZQUEZ. Appropriate documentation sent with patient.
--- NOTE | 2022-07-21 19:08 | PC.NURSE ---
Did not administer Amiodarone and Eliquis before transfer to IMU. Called pharmacy and had sent to IMU.
--- NOTE | 2022-07-21 19:08 | PC.NURSE ---
This patient, Jaguar Peters, was received from [ [phone]] on 07/21/22 at 1900. Patient/family oriented to unit policies and routines.
[2022-07-21] MEDS: DIGOXIN INJ 250 MCG/ML 2 ML AMP (*BKC) IV PUSH (20:04)
[2022-07-21 21:34] LABS: Glucose Point of Care 171 mg/dl (65-105)
[2022-07-21] MEDS: LATANOPROST 0.005% OP SOLN 2.5 ML BTL 1 DROP EACH EYE (21:48)
[2022-07-22] VITALS (20 sets, daily range): BP systolic 98–129; BP diastolic 44–99; PULSE 76–132; RESP 20–22; TEMP 35.7–37.1; O2SAT 94–99
[2022-07-22 06:10] LABS: Hemoglobin 10.6 g/dL (14.0-18.0); Mean Corpuscular HGB Conc 32.1 g/dl (32-36); Mean Corpuscular Hemoglobin 28.7 pg (26-34); Mean Corpuscular Volume 89.4 fl (80-100); Mean Platelet Volume 8.7 fl (7.4-10.4); Platelet Count Result 146 k/mm3 (150-375); Red Blood Count 3.69 M/mm3 (4.6-6.20); Red Cell Distribution Width 16.2 % (11.5-14.5); White Blood Count 25.9 K/mm3 (4.5-10.0)
[2022-07-22 06:41] LABS: Alanine Aminotransferase 35 U/L (6-50); Albumin Level 2.7 g/dL (3.5-5.1); Alkaline Phosphatase 77 U/L (38-126); Anion Gap 10 mmol/L (8-16); Aspartate Amino Transferase 49 U/L (17-59); Bilirubin,Total 0.6 mg/dL (0.2-1.3); Blood Urea Nitrogen 56 mg/dL (9-20); Calcium 7.5 mg/dL (8.4-10.2); Carbon Dioxide 24 mmol/L (22-30); Chloride 95 mmol/L (98-107); Estimated CRCL calculation 16 ml/min; Estimated Glomerular Filt Rate 15; Glucose 127 mg/dL (65-110); Potassium 3.5 mmol/L (3.4-5.0); Sodium 129 mmol/L (137-145)
[2022-07-22 07:37] LABS: Glucose Point of Care 130 mg/dl (65-105)
[2022-07-22] MEDS: INSULIN ASPART (*BKC) 100 UNITS/ML SUB-Q ×4 (08:16→17:39)
[2022-07-22] MEDS: AMIODARONE HCL 200 MG TABLET PO ×2 (08:17→17:36)
[2022-07-22] MEDS: METOPROLOL TARTRATE 25 MG TABLET PO ×2 (08:17→21:37)
[2022-07-22] MEDS: SODIUM CHLORIDE 0.9% IV 1,000 ML 100 ML IV CONT ×2 (08:18→19:46)
[2022-07-22] MEDS: APIXABAN 5 MG TABLET PO ×2 (08:18→17:36)
[2022-07-22] MEDS: TIMOLOL MALEATE 0.5% OP SOLN 5 ML BOTTLE 1 DROP EACH EYE ×2 (08:18→17:37)
[2022-07-22 09:01] LABS: Band Neutrophils Percent 11 % (0-6); Lymphocytes Absolute Manual 2.33 K/mm3 (1.1-4.5); Monocytes Absolute Manual 2.33 K/mm3 (0.1-0.90); Monocytes Percent Manual 9 % (3-9); Neutrophils Absolute Manual 21.23 K/mm3 (1.3-6.7); Neutrophils Percent Manual 71 % (46-73); Total Cells Counted 100
[2022-07-22 09:02] LABS: Schistocytes None Seen (NORMAL)
--- NOTE | 2022-07-22 10:09 | PCOTNOTE ---
Patient currently out of the room at this time. Per RN, Patient is down having a CT and a venous doppler.
[2022-07-22] MEDS: FINASTERIDE 5 MG TABLET PO (10:21)
[2022-07-22] MEDS: ROSUVASTATIN 10 MG TABLET PO (10:21)
[2022-07-22] MEDS: TAMSULOSIN HCL 0.4 MG CAPSULE PO (10:21)
[2022-07-22] MEDS: CHOLECALCIFEROL 1,000 UNITS TABLET 2000 UNITS PO (10:21)
[2022-07-22] MEDS: CYANOCOBALAMIN 1,000 MCG TABLET 1000 MCG PO (10:22)
[2022-07-22] MEDS: ASCORBIC ACID 500 MG TABLET PO (10:22)
[2022-07-22] MEDS: cefTRIAXone 2 GM in SODIUM CHLORIDE 0.9% IV 100 ML 200 ML IVPB (10:23)
[2022-07-22 12:09] LABS: Glucose Point of Care 168 mg/dl (65-105)
--- NOTE | 2022-07-22 15:49 | P.PNIM_ITS ---
Progress Note: A&P Assessment and Plan (1) Sepsis: Code(s): A41.9 - Sepsis, unspecified organism Status: Acute Assessment and Plan: septic on presentation evident by fever, tachycardia, leukocytosis in the set ting of acute UTI * lactic within normal limits * continue IV antibiotics as described below * patient requiring several fluid boluses yesterday to maintain appropriate blood pressure. * blood pressure is improved today and patient is continued on maintenance IV fluid * T-max 102.6?. Remaining afebrile >24 hours * leukocytosis remain consistently elevated at 25.9 today * blood cultures are pending, negative to date * CT of abdomen / pelvis completed today to rule secondary source of infection with no acute findings aside from mildly large para-aortic lymph node which was felt to be reactive * monitor vital signs and urine output (2) UTI (urinary tract infection): Code(s): N39.0 - Urinary tract infection, site not specified Status: Acute Assessment and Plan: urinalysis grossly abnormal on presentation * Urine culture with growth of >100k Klebsiella pneumoniae * continue IV ceftriaxone, increased to 2 g daily in light of sepsis on 07/21 * Vancomycin discontinued 07/21 based on culture results (3) Altered mental status: Code(s): R41.82 - Altered mental status, unspecified Status: Resolved Assessment and Plan: likely secondary to urinary tract infection * mental status has returned back to baseline * plan as above (4) Acute kidney injury: Code(s): N17.9 - Acute kidney failure, unspecified Status: Acute Assessment and Plan: Baseline creatinine appears to be 1.3. Creatinine elevated to 3.8 today * initially felt to be prerenal secondary to dehydration/diuresis vs ATN from acute infection * likely worsened now due to hypoperfusion from hypotension * furosemide, metformin, and lisinopril on hold * discontinued vancomycin. this may be contributing to worsened renal function * renal US unremarkable, no evidence of hydronephrosis or renal calculi * patient received 500 cc IV fluid bolus x3 yesterday. continue with maintenance IV fluids today * decreased urine output noted yesterday. Continue with Rosa catheter and monitor accurate I&O * given worsening, will proceed with Nephrology consultation. Input is appreciated (5) Atrial fibrillation with rapid ventricular response: Code(s): I48.91 - Unspecified atrial fibrillation Status: Acute Assessment and Plan: patient with onset of atrial fibrillation with rapid ventricular response yesterday with heart rate in the 140s. Patient previously in sinus rhythm. * Patient given 1 time dose of digoxin with improvement in heart rate * patient has converted back to sinus rhythm * continue metoprolol tartrate and amiodarone * continue Eliquis for stroke prophylaxis * continue to monitor on telemetry (6) Hypokalemia: Code(s): E87.6 - Hypokalemia Status: Acute Assessment and Plan: Potassium 3.5 today * monitor BMP (7) Chronic heart failure: Code(s): I50.9 - Heart failure, unspecified Status: Acute Assessment and Plan: history of CHF, no prior echo available for review * patient noted to be mildly edematous on presentation, therefore given IV Lasix 40 mg IV b.i.d. * CXR and presentation without evidence of pulmonary edema * Lasix discontinued on 07/20 given worsened renal function * monitor intake and output and weigh melony
--- NOTE | 2022-07-22 15:49 | PM.IMPN ---
Progress Note: A&P Assessment and Plan (1) Sepsis: Code(s): A41.9 - Sepsis, unspecified organism Status: Acute Assessment and Plan: septic on presentation evident by fever, tachycardia, leukocytosis in the setting of acute UTI lactic within normal limits continue IV antibiotics as described below patient requiring several fluid boluses yesterday to maintain appropriate blood pressure. blood pressure is improved today and patient is continued on maintenance IV fluid T-max 102.6?. Remaining afebrile >24 hours leukocytosis remain consistently elevated at 25.9 today blood cultures are pending, negative to date CT of abdomen / pelvis completed today to rule secondary source of infection with no acute findings aside from mildly large para-aortic lymph node which was felt to be reactive monitor vital signs and urine output (2) UTI (urinary tract infection): Code(s): N39.0 - Urinary tract infection, site not specified Status: Acute Assessment and Plan: urinalysis grossly abnormal on presentation Urine culture with growth of >100k Klebsiella pneumoniae continue IV ceftriaxone, increased to 2 g daily in light of sepsis on 07/21 Vancomycin discontinued 07/21 based on culture results (3) Altered mental status: Code(s): R41.82 - Altered mental status, unspecified Status: Resolved Assessment and Plan: likely secondary to urinary tract infection mental status has returned back to baseline plan as above (4) Acute kidney injury: Code(s): N17.9 - Acute kidney failure, unspecified Status: Acute Assessment and Plan: Baseline creatinine appears to be 1.3. Creatinine elevated to 3.8 today initially felt to be prerenal secondary to dehydration/diuresis vs ATN from acute infection likely worsened now due to hypoperfusion from hypotension furosemide, metformin, and lisinopril on hold discontinued vancomycin. this may be contributing to worsened renal function renal US unremarkable, no evidence of hydronephrosis or renal calculi patient received 500 cc IV fluid bolus x3 yesterday. continue with maintenance IV fluids today decreased urine output noted yesterday. Continue with Rosa catheter and monitor accurate I&O given worsening, will proceed with Nephrology consultation. Input is appreciated (5) Atrial fibrillation with rapid ventricular response: Code(s): I48.91 - Unspecified atrial fibrillation Status: Acute Assessment and Plan: patient with onset of atrial fibrillation with rapid ventricular response yesterday with heart rate in the 140s. Patient previously in sinus rhythm. Patient given 1 time dose of digoxin with improvement in heart rate patient has converted back to sinus rhythm continue metoprolol tartrate and amiodarone continue Eliquis for stroke prophylaxis continue to monitor on telemetry (6) Hypokalemia: Code(s): E87.6 - Hypokalemia Status: Acute Assessment and Plan: Potassium 3.5 today monitor BMP (7) Chronic heart failure: Code(s): I50.9 - Heart failure, unspecified Status: Acute Assessment and Plan: history of CHF, no prior echo available for review patient noted to be mildly edematous on presentation, therefore given IV Lasix 40 mg IV b.i.d. CXR and presentation without evidence of pulmonary edema Lasix discontinued on 07/20 given worsened renal function monitor intake and output and weigh daily heart healthy diet (8) Diabetes mellitus: Code(s): E11.9 - Type 2 diabetes mellitus without complications Status: Acute Assessment and Plan: A1c is 8.2 continue Accu-Cheks, sliding scale insulin, hypoglycemic protocol NovoLog 8 units t.i.d. with meals hold home metformin and glimepiride Plan bilateral venous Doppler negative for DVT Subjective Date/time seen: 07/22/22 15:49
[2022-07-22 17:09] LABS: Eosinophil Urine None Seen % (None Seen)
[2022-07-22 19:29] LABS: Glucose Point of Care 210 mg/dl (65-105)
[2022-07-22 19:34] LABS: Lactic Acid Reflex 1.2 mmol/L (0.7-2.0)
[2022-07-22] MEDS: DOXYCYCLINE 100 MG/NS 100 ML 100 MG/100 ML BAG IVPB (20:09)
[2022-07-22] MEDS: LATANOPROST 0.005% OP SOLN 2.5 ML BTL 1 DROP EACH EYE (20:10)
[2022-07-22 20:46] LABS: Glucose Point of Care 252 mg/dl (65-105)
[2022-07-22] MEDS: metroNIDAZOLE 250 MG TABLET 500 MG PO (21:49)
[2022-07-23] VITALS (15 sets, daily range): BP systolic 100–118; BP diastolic 42–77; PULSE 73–107; RESP 18–24; TEMP 35.9–36.8; O2SAT 95–100
[2022-07-23] MEDS: metroNIDAZOLE 250 MG TABLET 500 MG PO ×3 (05:17→21:02)
[2022-07-23 05:51] LABS: Hematocrit 30.4 % (42.0-52.0); Mean Corpuscular HGB Conc 32.9 g/dl (32-36); Mean Corpuscular Hemoglobin 28.8 pg (26-34); Mean Corpuscular Volume 87.6 fl (80-100); Mean Platelet Volume 8.8 fl (7.4-10.4); Platelet Count Result 164 k/mm3 (150-375); Red Blood Count 3.47 M/mm3 (4.6-6.20); White Blood Count 25.7 K/mm3 (4.5-10.0)
[2022-07-23 05:58] LABS: Alanine Aminotransferase 34 U/L (6-50); Albumin Level 2.6 g/dL (3.5-5.1); Alkaline Phosphatase 80 U/L (38-126); Anion Gap 7 mmol/L (8-16); Aspartate Amino Transferase 43 U/L (17-59); Bilirubin,Total 0.4 mg/dL (0.2-1.3); Blood Urea Nitrogen 70 mg/dL (9-20); Calcium 7.1 mg/dL (8.4-10.2); Carbon Dioxide 23 mmol/L (22-30); Chloride 95 mmol/L (98-107); Estimated CRCL calculation 15 ml/min; Estimated Glomerular Filt Rate 14; Glucose 223 mg/dL (65-110); Potassium 3.8 mmol/L (3.4-5.0); Sodium 125 mmol/L (137-145)
[2022-07-23] MEDS: SODIUM CHLORIDE 0.9% IV 1,000 ML 100 ML IV CONT (07:11)
[2022-07-23 07:55] LABS: Glucose Point of Care 267 mg/dl (65-105)
[2022-07-23] MEDS: ROSUVASTATIN 10 MG TABLET PO (09:02)
[2022-07-23] MEDS: TIMOLOL MALEATE 0.5% OP SOLN 5 ML BOTTLE 1 DROP EACH EYE ×2 (09:02→16:20)
[2022-07-23] MEDS: TAMSULOSIN HCL 0.4 MG CAPSULE PO (09:02)
[2022-07-23] MEDS: METOPROLOL TARTRATE 25 MG TABLET PO ×2 (09:02→20:59)
[2022-07-23] MEDS: ASCORBIC ACID 500 MG TABLET PO (09:03)
[2022-07-23] MEDS: FINASTERIDE 5 MG TABLET PO (09:03)
[2022-07-23] MEDS: AMIODARONE HCL 200 MG TABLET PO ×2 (09:03→16:20)
[2022-07-23] MEDS: CHOLECALCIFEROL 1,000 UNITS TABLET 2000 UNITS PO (09:03)
[2022-07-23] MEDS: INSULIN ASPART (*BKC) 100 UNITS/ML SUB-Q ×4 (09:03→12:19)
[2022-07-23] MEDS: APIXABAN 5 MG TABLET PO ×2 (09:03→16:20)
[2022-07-23] MEDS: CYANOCOBALAMIN 1,000 MCG TABLET 1000 MCG PO (09:09)
--- NOTE | 2022-07-23 09:25 | PM.CNNEP ---
Assessment and Plan Assessment and plan (1) Acute kidney injury: Code(s): N17.9 - Acute kidney failure, unspecified Status: Acute Assessment and Plan: the patient has acute kidney injury. I do not know if he had chronic subtle damage from that Bactrim incident but his creatinine was normal when he was admitted here. the patient had hypotension 2 days ago and yesterday. This is now better. This could cause some pre renal factors. The patient has the UTI and was fairly ill with this so probably had some systemic effects which could include the renal failure. He could have obstruction. He did not have any before but since he feels like his bladder is full may be there is something going on there. Possibly the Rosa catheter is not placed correctly. I asked the nurse to double check on this. Will check an ultrasound of the kidneys and bladder to be sure the bladder is decompressed as well. The Rosa could just be irritating his bladder making feel like he has to go to the bathroom. Other issues could be going on as well. Glomerular Fridays as possible. I did look at his urine sediment in the lab and it showed ATN casts, not RBC casts. Red cells that were present were not dysmorphic. So I think this is probably ATN from the UTI and low blood pressure. The creatinine miguel angel dramatically the for a couple of days but then between yesterday and today it miguel angel just a little bit more so he might be approaching a plateau. He does have some swelling. he is eating. I think We can stop the IV fluids. Will watch 1 more day and tomorrow consider diuretic. (2) Atrial fibrillation: Code(s): I48.91 - Unspecified atrial fibrillation Status: Acute Assessment and Plan: The patient has apparently a history of paroxysmal atrial fibrillation. His EKG now though shows sinus tach (3) Sepsis: Code(s): A41.9 - Sepsis, unspecified organism Status: Acute Assessment and Plan: the patient has a UTI. Blood cultures are negative. He is on Levaquin for this. (4) Dyslipidemia: Code(s): E78.5 - Hyperlipidemia, unspecified Status: Acute Assessment and Plan: The patient is on rosuvastatin. (5) Diabetes mellitus: Code(s): E11.9 - Type 2 diabetes mellitus without complications Status: Acute Assessment and Plan: Management per hospitalist's (6) HTN (hypertension): Code(s): I10 - Essential (primary) hypertension Status: Acute Assessment and Plan: his blood pressure is better. He is on no blood pressure meds at this point History of Present Illness Reason for Consult Consult date: 07/23/22 Chief Complaint Chief complaint: Sepsis History of Present Illness Narrative: Jaguar is a very pleasant 82-year-old gentleman who has multiple medical problems including hypertension, diabetes, coronary disease status post stents, Bactrim allergy leading to renal failure, hyperlipidemia, BPH, reversible airways disease, glaucoma. The patient was well until the day of admission when he suddenly developed nausea and vomiting and shakiness while at work. He drove home but he was getting progressively more sleepy and inattentive that he started swerving. The please pulled him over called EMS sent him to the ER. In the ER he was found to be fairly ill. UA was positive. He was felt to have sepsis. he had a good blood pressure in the ER. He was given IV fluids and antibiotics and admitted. Cultures were done. His creatinine was normal at the time. As the days went on his creatinine gradually miguel angel yesterday was 3.8 and today it is 4.2. Renal consultation was requested he tells me that after the Bactrim allergy he was told by a kidney doctor that he had some leftover damage of the kidneys. However his creatinine was 1.3 on admission he says he does have prostatic symptoms. With some difficulty urinating. He has been on finasteri
[2022-07-23 09:57] LABS: Creatine Kinase 161 U/L (55-170)
--- NOTE | 2022-07-23 11:07 | WPDURCON ---
Assessment and Plan Assessment and plan (1) Acute kidney injury: Code(s): N17.9 - Acute kidney failure, unspecified Status: Acute Assessment and Plan: managed by nephrology (2) Sepsis: Code(s): A41.9 - Sepsis, unspecified organism Status: Acute Assessment and Plan: on culture specific abx, no drainable abscess (3) UTI (urinary tract infection): Code(s): N39.0 - Urinary tract infection, site not specified Status: Acute (4) Epididymitis: Code(s): N45.1 - Epididymitis Status: Acute Assessment and Plan: Right epididymitis ( Klebsiella S to cephalsporins and FQ's) -continue culture specific abx x 2 weeks -recommend scrotal elevation ( towel under scrotum when supine, scrotal support when ambulatory -maintain mcdonald catheter for now for maximal urinary drainage. void trial in future Urology Consult Note HPI Date Seen: 07/23/22 Requesting Physician: Karen Lala PA-C Primary Care Provider: Sukhdeep Barrera, Consult Narrative Reason for consult: epididymmitis Narrative: Jaguar Peters is a 82 year old male with DM, HTN, CAD, Afib, CKD, BPH(on flomax and finasteride), admitted with sepsis and AMS. Found to have UTI on admission. He c/o of right testis pain. States he had 1 prior UTI 3 months ago treated as an outpatient. Denies hx of stones or voiding dysfunction. 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 He currently has mcdonald. He had some dysuria prior. [employer], nocturia 3-4 x which he attributes to his diuretics. Review of Systems Constitutional: Constitutional: Reports body ache(s), Reports fatigue and Reports lethargy Eyes: Eyes: Reports as per HPI and Reports no additional eye complaints ENT: Reports system reviewed and no additional complaints, except as documented and Denies dysphagia Cardiovascular: Cardiovascular: Denies chest pain, Denies lightheadedness and Denies palpitations Respiratory: Respiratory: Reports no additional respiratory complaints and Denies dyspnea Gastrointestinal: Gastrointestinal: Denies melena and Denies diarrhea Genitourinary: Genitourinary: Reports as per HPI Musculoskeletal: Musculoskeletal: Reports no additional musculoskeletal complaints Integumentary/Breasts: Skin/Breast: Reports system reviewed and no additional complaints, except as docu Neurologic: Reports system reviewed and no additional complaints, except as documented PMFSH Past Medical History Medical History Atrial fibrillation Diabetes mellitus HTN (hypertension) Social History Social History Smoking status: Never smoker Alcohol intake: never Substance use: never Lack of Transportation: No Lack of Food: Never True Current Housing: I Have Housing Concerned About Future Housing: No Difficulty Paying Gas/Electric Bills: No Difficulty Paying for Meds: No Currently Unemployed: No Education: Decline to Answer Difficulty w/ Childcare or Family Care: No Gender identity (if verbalized by the patient): Male Spiritual care concerns: No Meds Home Medications and Allergies Home Medications Medication Instructions Recorded Confirmed Type albuterol sulfate 90 mcg/actuation 2 puff inhalation QID PRN 08/02/20 07/20/22 Rx aerosol inhaler shortness of breath or wheezing #8.5 grams glimepiride 4 mg tablet 4 mg PO DAILY 08/02/20 07/20/22 History latanoprost 0.005 % eye drops 1 drp ophthalmic (eye) DAILY 08/02/20 07/20/22 History lisinopril 10 mg tablet 10 mg PO DAILY 08/02/20 07/20/22 History metformin 1,000 mg tablet 1,000 mg PO BID 08/02/20 07/20/22 History metoclopramide HCl 10 mg tablet 10 mg PO Q6H PRN nausea and 08/02/20 07/20/22 Rx (Reglan) vomiting #10 tabs metoprolol tartrate 25 mg tablet 25 mg PO BID 08/02/20 07/20/22 History t
--- NOTE | 2022-07-23 11:44 | PCPTNOTE ---
Attempted to see patient for PT, however patient declined. Patient reported he just got back in bed from sitting up in chair and just got his lunch, and does not feel he can do PT at this time.
[2022-07-23 12:05] LABS: Glucose Point of Care 238 mg/dl (65-105)
[2022-07-23 12:36] LABS: Creatinine Urine 49.5 mg/dL; Total Protein Urine Random 99 mg/dL
[2022-07-23 12:37] LABS: Sodium Urine Random 22 meq/L
--- NOTE | 2022-07-23 14:18 | P.PNIM_ITS ---
Progress Note: A&P Assessment and Plan (1) Sepsis: Code(s): A41.9 - Sepsis, unspecified organism Status: Acute Assessment and Plan: septic on presentation evident by fever, tachycardia, leukocytosis, hypotension in the setting of acute UTI * lactic within normal limits * continue IV antibiotics as described below * blood pressure improved today, remaining stable * T-max 102.6?. Remaining afebrile >48 hours * leukocytosis remaining consistently elevated at 25.7 today * blood cultures are pending, negative to date * monitor vital signs and urine output (2) UTI (urinary tract infection): Code(s): N39.0 - Urinary tract infection, site not specified Status: Acute Assessment and Plan: urinalysis grossly abnormal on presentation * Urine culture with growth of >100k Klebsiella pneumoniae * discontinue IV ceftriaxone 2 g. * transition to Levaquin for subsequent coverage of epididymitis based on susceptibility report from urine culture (3) Epididymitis: Code(s): N45.1 - Epididymitis Status: Acute Assessment and Plan: patient complained of scrotal edema and pain on 07/22 * scrotal ultrasound revealed right epididymitis with no testicular mass lesion or torsion * CT of abdomen/pelvis with no acute findings aside from mildly large para- aortic lymph node which was felt to be reactive * appreciate urology consultation * continue IV Levaquin and Flagyl * scrotal elevation * continue Rosa catheter (4) Acute kidney injury: Code(s): N17.9 - Acute kidney failure, unspecified Status: Acute Assessment and Plan: Baseline creatinine appears to be 1.3. Creatinine elevated to 4.2 today * initially felt to be prerenal secondary to dehydration/diuresis vs ATN from acute infection * likely worsened now due to hypoperfusion from hypotension * appreciate nephrology recommendations * furosemide, metformin, and lisinopril on hold * renal US unremarkable, no evidence of hydronephrosis or renal calculi * patient has been rehydrated with IV fluids with no improvement. IV fluids discontinued today per Nephrology recommendations * repeat renal ultrasound pending to rule out obstructive etiology * monitor BMP closely (5) Altered mental status: Code(s): R41.82 - Altered mental status, unspecified Status: Resolved Assessment and Plan: likely secondary to urinary tract infection * mental status has returned back to baseline * plan as above (6) Atrial fibrillation with rapid ventricular response: Code(s): I48.91 - Unspecified atrial fibrillation Status: Acute Assessment and Plan: patient with onset of atrial fibrillation with rapid ventricular response on 07/21 with heart rate in the 140s. Patient previously in sinus rhythm. * Patient given 1 time dose of digoxin with improvement in heart rate * patient has converted back to sinus rhythm * continue metoprolol tartrate and amiodarone * continue Eliquis for stroke prophylaxis * continue to monitor on telemetry (7) Hyponatremia: Code(s): E87.1 - Hypo-osmolality and hyponatremia Status: Acute Assessment and Plan: sodium down to 125 today. * IV fluids discontinued * monitor sodium levels closely * appreciate nephrology recommendations (8) Chronic heart failure: Code(s): I50.9 - Heart failure, unspecified Status: Acute Assessment and Plan: history of CHF, no prior echo available for review * jon
--- NOTE | 2022-07-23 14:18 | PM.IMPN ---
Progress Note: A&P Assessment and Plan (1) Sepsis: Code(s): A41.9 - Sepsis, unspecified organism Status: Acute Assessment and Plan: septic on presentation evident by fever, tachycardia, leukocytosis, hypotension in the setting of acute UTI lactic within normal limits continue IV antibiotics as described below blood pressure improved today, remaining stable T-max 102.6?. Remaining afebrile >48 hours leukocytosis remaining consistently elevated at 25.7 today blood cultures are pending, negative to date monitor vital signs and urine output (2) UTI (urinary tract infection): Code(s): N39.0 - Urinary tract infection, site not specified Status: Acute Assessment and Plan: urinalysis grossly abnormal on presentation Urine culture with growth of >100k Klebsiella pneumoniae discontinue IV ceftriaxone 2 g. transition to Levaquin for subsequent coverage of epididymitis based on susceptibility report from urine culture (3) Epididymitis: Code(s): N45.1 - Epididymitis Status: Acute Assessment and Plan: patient complained of scrotal edema and pain on 07/22 scrotal ultrasound revealed right epididymitis with no testicular mass lesion or torsion CT of abdomen/pelvis with no acute findings aside from mildly large para-aortic lymph node which was felt to be reactive appreciate urology consultation continue IV Levaquin and Flagyl scrotal elevation continue Rosa catheter (4) Acute kidney injury: Code(s): N17.9 - Acute kidney failure, unspecified Status: Acute Assessment and Plan: Baseline creatinine appears to be 1.3. Creatinine elevated to 4.2 today initially felt to be prerenal secondary to dehydration/diuresis vs ATN from acute infection likely worsened now due to hypoperfusion from hypotension appreciate nephrology recommendations furosemide, metformin, and lisinopril on hold renal US unremarkable, no evidence of hydronephrosis or renal calculi patient has been rehydrated with IV fluids with no improvement. IV fluids discontinued today per Nephrology recommendations repeat renal ultrasound pending to rule out obstructive etiology monitor BMP closely (5) Altered mental status: Code(s): R41.82 - Altered mental status, unspecified Status: Resolved Assessment and Plan: likely secondary to urinary tract infection mental status has returned back to baseline plan as above (6) Atrial fibrillation with rapid ventricular response: Code(s): I48.91 - Unspecified atrial fibrillation Status: Acute Assessment and Plan: patient with onset of atrial fibrillation with rapid ventricular response on 07/21 with heart rate in the 140s. Patient previously in sinus rhythm. Patient given 1 time dose of digoxin with improvement in heart rate patient has converted back to sinus rhythm continue metoprolol tartrate and amiodarone continue Eliquis for stroke prophylaxis continue to monitor on telemetry (7) Hyponatremia: Code(s): E87.1 - Hypo-osmolality and hyponatremia Status: Acute Assessment and Plan: sodium down to 125 today. IV fluids discontinued monitor sodium levels closely appreciate nephrology recommendations (8) Chronic heart failure: Code(s): I50.9 - Heart failure, unspecified Status: Acute Assessment and Plan: history of CHF, no prior echo available for review patient noted to be mildly edematous on presentation, therefore given IV Lasix 40 mg IV b.i.d. CXR on presentation without evidence of pulmonary edema Lasix discontinued on 07/20 given worsened renal function monitor intake and output and weigh daily heart healthy diet (9) Diabetes mellitus: Code(s): E11.9 - Type 2 diabetes mellitus without complications Status: Acute Assessment and Plan: A1c is 8.2 continue Accu-Ch
[2022-07-23 15:24] LABS: Sodium 124 mmol/L (137-145)
[2022-07-23 18:18] LABS: Glucose Point of Care 195 mg/dl (65-105)
[2022-07-23] MEDS: LATANOPROST 0.005% OP SOLN 2.5 ML BTL 1 DROP EACH EYE (20:59)
[2022-07-23] MEDS: SENNOSIDES 8.6 MG TABLET PO (20:59)
[2022-07-23 21:29] LABS: Glucose Point of Care 203 mg/dl (65-105)
--- NOTE | 2022-07-23 21:34 | PC.NURSE ---
This patient, Jaguar Peters, was transferred to [[id number]] on 07/23/22 at 2134. Personal belongings sent with patient. Report given to [MARCUS Crocker]. Appropriate documentation sent with patient.
[2022-07-24] VITALS (13 sets, daily range): BP systolic 93–131; BP diastolic 48–90; PULSE 74–131; RESP 16–20; TEMP 35.4–36.6; O2SAT 95–98
--- NOTE | 2022-07-24 03:50 | PC.NURSE ---
Pt received 2140 from IMU, pt alert orientated, pleasant cooperative. Pt with much difficulty moving self in bed. Abd- round large. Cannot use feet to push self up. Use of trapeze did not assist pt at all. States pain to left heel 9/10 when touched. Ronna hose on , has wrinkles in hose, not pulled all the way up, refuses to let this nurse fix ronna hose. Room Air- diminished tele- SR-ST w PVC's Scrotum elevated on towel- edematous. Rosa draining yellow urine. Pt states uses walker at home with recent fall without seeking treatment. Fall precautions
--- NOTE | 2022-07-24 05:26 | PC.NURSE ---
Pt was SR switched to a fib after walking brent bathroom and having BM- Hearrate 110- 135 asymptomatic Then r
--- NOTE | 2022-07-24 05:28 | PC.NURSE ---
Pt SR since arrival from IMU until pt up to bathroom - had BM Switched to a fib rate 110-135 Then received sepsis alert Notified Dr Colon No orders received. Pt asymptomatic
[2022-07-24] MEDS: metroNIDAZOLE 250 MG TABLET 500 MG PO ×3 (05:32→21:42)
[2022-07-24 06:08] LABS: Albumin Level 2.7 g/dL (3.5-5.1); Anion Gap 11 mmol/L (8-16); Blood Urea Nitrogen 75 mg/dL (9-20); Calcium 7.9 mg/dL (8.4-10.2); Carbon Dioxide 20 mmol/L (22-30); Chloride 94 mmol/L (98-107); Estimated CRCL calculation 13 ml/min; Estimated Glomerular Filt Rate 12; Glucose 194 mg/dL (65-110); Phosphorus 4.4 mg/dL (2.5-4.5); Potassium 3.8 mmol/L (3.4-5.0); Sodium 125 mmol/L (137-145)
--- NOTE | 2022-07-24 08:28 | PM.PNNEP ---
Progress Note: A&P Assessment and Plan (1) Acute kidney injury: Code(s): N17.9 - Acute kidney failure, unspecified Status: Acute Assessment and Plan: the patient has acute kidney injury. I do not know if he had chronic subtle damage from that Bactrim incident but his creatinine was normal when he was admitted here. renal ultrasound was normal. Bladder was decompressed. Urine electrolytes are non pre renal. CPK is normal UA shows bladder infection urine sediment by my own microscopy shows muddy brown casts, no red cell casts nor dysmorphic red cells. This is most likely ATN from infection and low blood pressure. His creatinine continues to rise. He does not look volume depleted. Will continue treatment of the UTI. He is making a lot of urine. Hopefully he will turn around soon (2) Atrial fibrillation: Code(s): I48.91 - Unspecified atrial fibrillation Status: Acute Assessment and Plan: The patient has apparently a history of paroxysmal atrial fibrillation. His EKG now though shows sinus tach (3) Sepsis: Code(s): A41.9 - Sepsis, unspecified organism Status: Acute Assessment and Plan: the patient has a UTI. Blood cultures are negative. urine culture shows Klebsiella sensitive to Levaquin. He also has epididymitis. His white count is still elevated. he is on Levaquin (4) Dyslipidemia: Code(s): E78.5 - Hyperlipidemia, unspecified Status: Acute Assessment and Plan: The patient is on rosuvastatin. (5) Diabetes mellitus: Code(s): E11.9 - Type 2 diabetes mellitus without complications Status: Acute Assessment and Plan: Management per hospitalist's (6) HTN (hypertension): Code(s): I10 - Essential (primary) hypertension Status: Acute Assessment and Plan: his blood pressure is better. He is on no blood pressure meds at this point Subjective Date/time seen: 07/24/22 08:28 Interval history: Jaguar is feeling a little better today. He is weak and he has to have help standing up. He is making a lot of urine he says. He still has a Rosa catheter in. No shortness of breath or chest pain Review of Systems Cardiovascular: Cardiovascular: Reports no additional cardiovascular complaints Respiratory: Respiratory: Reports no additional respiratory complaints Gastrointestinal: Gastrointestinal: Reports no additional gastrointestinal complaints Genitourinary: Genitourinary: Reports no additional male genitourinary complaints Exam Narrative: WDWN in NAD skin no rash head ncat lungs clear cor reg no rub abd BS+ nontender and soft ext 1+ edema. scrotal edema present Objective Data Vital Signs Vital Signs: Vital Signs - 24 hr 07/23/22 09:02 07/23/22 09:03 07/23/22 09:12 Temperature Pulse Rate 76 76 Respiratory Rate Blood Pressure Pulse Oximetry Oxygen Delivery Room Air 07/23/22 10:00 07/23/22 11:37 07/23/22 12:00 Temperature 96.8 F L Pulse Rate 73 75 75 Respiratory Rate 24 H Blood Pressure 100/47 L Pulse Oximetry 100 Oxygen Delivery 07/23/22 15:46 07/23/22 16:00 07/23/22 20:59 Temperature 96.6 F L Pulse Rate 79 79 84 Respiratory Rate 20 Blood Pressure 106/77 Pulse Oximetry 98 Oxygen Delivery 07/23/22 20:00 07/23/22 20:00 07/23/22 20:00 Temperature 97.3 F L Pulse Rate 85 90 Respiratory Rate 20 Blood Pressure 100/42 L Pulse Oximetry 99 96 Oxygen Delivery Room Air 07/24/22 00:00 07/24/22 04:00 Temperature 97.8 F 97.6 F Pulse Rate 82 129 H Respiratory Rate 20 20 Blood Pressure 103/59 L 109/60 Pulse Oximetry 97 95 Oxygen Delivery Intake/Output Intake/Output: Intake & Output 07/21/22 07/22/22 07/23/22 07/24/22 23:59 23:59 23:59 23:59 Intake Total 990 2000 3040 Output Total 300 125 625 5 Balance [facility] [phone] Meds/Results M
[2022-07-24 09:02] LABS: Glucose Point of Care 193 mg/dl (65-105)
[2022-07-24 09:16] LABS: Hematocrit 33.1 % (42.0-52.0); Hemoglobin 10.7 g/dL (14.0-18.0); Mean Corpuscular HGB Conc 32.3 g/dl (32-36); Mean Corpuscular Hemoglobin 28.6 pg (26-34); Mean Corpuscular Volume 88.5 fl (80-100); Mean Platelet Volume 8.8 fl (7.4-10.4); Platelet Count Result 205 k/mm3 (150-375); Red Blood Count 3.74 M/mm3 (4.6-6.20); Red Cell Distribution Width 16.1 % (11.5-14.5); White Blood Count 24.1 K/mm3 (4.5-10.0)
[2022-07-24] MEDS: APIXABAN 5 MG TABLET PO ×2 (09:16→17:13)
[2022-07-24] MEDS: ASCORBIC ACID 500 MG TABLET PO (09:16)
[2022-07-24] MEDS: CYANOCOBALAMIN 1,000 MCG TABLET 1000 MCG PO (09:16)
[2022-07-24] MEDS: FINASTERIDE 5 MG TABLET PO (09:16)
[2022-07-24] MEDS: METOPROLOL TARTRATE 25 MG TABLET PO ×2 (09:16→23:23)
[2022-07-24] MEDS: TAMSULOSIN HCL 0.4 MG CAPSULE PO (09:17)
[2022-07-24] MEDS: TIMOLOL MALEATE 0.5% OP SOLN 5 ML BOTTLE 1 DROP EACH EYE ×2 (09:17→17:13)
[2022-07-24] MEDS: ROSUVASTATIN 10 MG TABLET PO (09:17)
[2022-07-24] MEDS: AMIODARONE HCL 200 MG TABLET PO ×2 (09:18→21:41)
[2022-07-24] MEDS: INSULIN ASPART (*BKC) 100 UNITS/ML SUB-Q ×4 (09:19→17:39)
[2022-07-24 09:34] LABS: Band Neutrophils Percent 12 % (0-6); Lymphocytes Absolute Manual 2.65 K/mm3 (1.1-4.5); Monocytes Absolute Manual 1.44 K/mm3 (0.1-0.90); Monocytes Percent Manual 6 % (3-9); Neutrophils Percent Manual 71 % (46-73); Total Cells Counted 100
[2022-07-24 09:35] LABS: Atypical Lymphocytes Present; Platelet Estimate Adequate (Adequate); Schistocytes None Seen (NORMAL)
[2022-07-24] MEDS: CHOLECALCIFEROL 1,000 UNITS TABLET 2000 UNITS PO (10:11)
--- NOTE | 2022-07-24 11:30 | PC.NURSE ---
Previous shift boss RN charted on day shift RN head to toe assessment.
[2022-07-24 12:45] LABS: Glucose Point of Care 210 mg/dl (65-105)
--- NOTE | 2022-07-24 15:25 | P.PNIM_ITS ---
Progress Note: A&P Assessment and Plan (1) Sepsis: Code(s): A41.9 - Sepsis, unspecified organism Status: Acute Assessment and Plan: septic on presentation evident by fever, tachycardia, leukocytosis, hypotension in the setting of acute UTI * lactic within normal limits * continue IV antibiotics as described below * Hypotension resolved, BP remaining stable * ?T-max 102.6?.? Remaining afebrile >72 hours * ? leukocytosis with slight improvement 24.1 today * ?blood cultures are pending, negative to date * ?monitor vital signs and urine output (2) UTI (urinary tract infection): Code(s): N39.0 - Urinary tract infection, site not specified Status: Acute Assessment and Plan: urinalysis grossly abnormal on presentation * Urine culture with growth of >100k Klebsiella pneumoniae * Continue IV Levaquin Levaquin for concurrent coverage of epididymitis based on susceptibility report from urine culture (3) Epididymitis: Code(s): N45.1 - Epididymitis Status: Acute Assessment and Plan: ?patient complained of scrotal edema and pain on 07/22 * scrotal ultrasound revealed right epididymitis with no testicular mass lesion or torsion * CT of abdomen/pelvis with no acute findings aside from mildly large para- aortic lymph node which was felt to be reactive * ?appreciate urology consultation * ?continue IV Levaquin and Flagyl * ?scrotal elevation * ?continue Rosa catheter (4) Acute kidney injury: Code(s): N17.9 - Acute kidney failure, unspecified Status: Acute Assessment and Plan: Baseline creatinine appears to be 1.3. Creatinine elevated to 4.7 today * ?initially felt to be prerenal secondary to dehydration/diuresis vs ATN from acute infection,?likely worsened due to hypoperfusion from hypotension * ?appreciate nephrology recommendations * ?furosemide, metformin, and lisinopril on hold * ?renal US unremarkable, no evidence of hydronephrosis or renal calculi * ?patient has been rehydrated with IV fluids with no improvement.? IV fluids discontinued on 07/23 today per Nephrology recommendations * Urine output improved * ?repeat renal ultrasound on 07/23 unremarkable, no evidence of obstruction * ?monitor BMP closely (5) Atrial fibrillation with rapid ventricular response: Code(s): I48.91 - Unspecified atrial fibrillation Status: Acute Assessment and Plan: ?patient with onset of atrial fibrillation with rapid ventricular response? on 07/21 with heart rate in the 140s.? Patient previously in sinus rhythm. * ?Patient given 1 time dose of digoxin with improvement in heart rate * ?continue metoprolol tartrate and amiodarone * ?continue Eliquis for stroke prophylaxis * ?continue to monitor on telemetry (6) Hyponatremia: Code(s): E87.1 - Hypo-osmolality and hyponatremia Status: Acute Assessment and Plan: sodium 125 today. * ?IV fluids discontinued * Fluid restriction diet implemented per nephrology recommendations * ?monitor sodium levels closely (7) Altered mental status: Code(s): R41.82 - Altered mental status, unspecified Status: Resolved Assessment and Plan: likely secondary to urinary tract infection * ?mental status has returned back to baseline * ?plan as above (8) Chronic heart failure: Code(s): I50.9 - Heart failure, unspecified Status: Acute Assessment and Plan: ?history of CHF, no prior echo available for review * ?patient noted to be mildly edematous on presentation
--- NOTE | 2022-07-24 15:25 | PM.IMPN ---
Progress Note: A&P Assessment and Plan (1) Sepsis: Code(s): A41.9 - Sepsis, unspecified organism Status: Acute Assessment and Plan: septic on presentation evident by fever, tachycardia, leukocytosis, hypotension in the setting of acute UTI lactic within normal limits continue IV antibiotics as described below Hypotension resolved, BP remaining stable ?T-max 102.6?.? Remaining afebrile >72 hours ? leukocytosis with slight improvement 24.1 today ?blood cultures are pending, negative to date ?monitor vital signs and urine output (2) UTI (urinary tract infection): Code(s): N39.0 - Urinary tract infection, site not specified Status: Acute Assessment and Plan: urinalysis grossly abnormal on presentation Urine culture with growth of >100k Klebsiella pneumoniae Continue IV Levaquin Levaquin for concurrent coverage of epididymitis based on susceptibility report from urine culture (3) Epididymitis: Code(s): N45.1 - Epididymitis Status: Acute Assessment and Plan: ?patient complained of scrotal edema and pain on 07/22 scrotal ultrasound revealed right epididymitis with no testicular mass lesion or torsion CT of abdomen/pelvis with no acute findings aside from mildly large para-aortic lymph node which was felt to be reactive ?appreciate urology consultation ?continue IV Levaquin and Flagyl ?scrotal elevation ?continue Rosa catheter (4) Acute kidney injury: Code(s): N17.9 - Acute kidney failure, unspecified Status: Acute Assessment and Plan: Baseline creatinine appears to be 1.3. Creatinine elevated to 4.7 today ?initially felt to be prerenal secondary to dehydration/diuresis vs ATN from acute infection,?likely worsened due to hypoperfusion from hypotension ?appreciate nephrology recommendations ?furosemide, metformin, and lisinopril on hold ?renal US unremarkable, no evidence of hydronephrosis or renal calculi ?patient has been rehydrated with IV fluids with no improvement.? IV fluids discontinued on 07/23 today per Nephrology recommendations Urine output improved ?repeat renal ultrasound on 07/23 unremarkable, no evidence of obstruction ?monitor BMP closely (5) Atrial fibrillation with rapid ventricular response: Code(s): I48.91 - Unspecified atrial fibrillation Status: Acute Assessment and Plan: ?patient with onset of atrial fibrillation with rapid ventricular response? on 07/21 with heart rate in the 140s.? Patient previously in sinus rhythm. ?Patient given 1 time dose of digoxin with improvement in heart rate ?continue metoprolol tartrate and amiodarone ?continue Eliquis for stroke prophylaxis ?continue to monitor on telemetry (6) Hyponatremia: Code(s): E87.1 - Hypo-osmolality and hyponatremia Status: Acute Assessment and Plan: sodium 125 today. ?IV fluids discontinued Fluid restriction diet implemented per nephrology recommendations ?monitor sodium levels closely (7) Altered mental status: Code(s): R41.82 - Altered mental status, unspecified Status: Resolved Assessment and Plan: likely secondary to urinary tract infection ?mental status has returned back to baseline ?plan as above (8) Chronic heart failure: Code(s): I50.9 - Heart failure, unspecified Status: Acute Assessment and Plan: ?history of CHF, no prior echo available for review ?patient noted to be mildly edematous on presentation, therefore given IV Lasix 40 mg IV b.i.d. ?CXR on presentation without? evidence of pulmonary edema ?Lasix discontinued on 07/20 given worsened renal function ?monitor intake and output and weigh daily ?heart healthy diet (9) Diabetes mellitus: Code(s): E11.9 - Type 2 diabetes mellitus without complications Status: Acute Assessment and Plan: A1c is 8.2 ?continue Accu-Cheks, sliding scale insulin, hypoglycemic
--- NOTE | 2022-07-24 17:21 | PC.NURSE ---
Housekeeping Worker called hospitalist Karen to update on patients vitals (see vitals).
[2022-07-24 17:26] LABS: Glucose Point of Care 193 mg/dl (65-105)
[2022-07-24 21:02] LABS: Glucose Point of Care 262 mg/dl (65-105)
[2022-07-24] MEDS: SENNOSIDES 8.6 MG TABLET PO (21:41)
[2022-07-24] MEDS: LATANOPROST 0.005% OP SOLN 2.5 ML BTL 1 DROP EACH EYE (21:42)
--- NOTE | 2022-07-24 22:03 | PC.NURSE ---
rechecking bp was 93/57 at 2330 per RENU Suggs, elevated HR afib 130's, amiodarone given per Ifeanyi now then recheck bp to see if ok to give metoprolol, holding metoprolol at this time until bp rechecked.
--- NOTE | 2022-07-24 23:21 | PC.NURSE ---
hr 90 better and 131/58 metoprolol 25 mg Po given per RENU restrepo
[2022-07-25] VITALS (14 sets, daily range): BP systolic 102–145; BP diastolic 38–51; PULSE 73–93; RESP 18; TEMP 36.4–36.8; O2SAT 96–97
[2022-07-25] MEDS: metroNIDAZOLE 250 MG TABLET 500 MG PO ×3 (05:09→20:57)
[2022-07-25 06:09] LABS: Basophils Absolute Auto 0.1 K/mm3 (0.0-0.1); Basophils Percent Auto 0.4 % (0.2-1.2); Eosinophils Absolute Auto 0.1 K/mm3 (0-0.3); Eosinophils Percent Auto 0.4 % (0-4.4); Hematocrit 30.9 % (42.0-52.0); Hemoglobin 10.1 g/dL (14.0-18.0); Immature Granulocyte Absolute 0.52 K/mm3 (0.00-0.031); Immature Granulocyte Percent A 3.1 % (0-0.5); Lymphocytes Absolute Auto 1.99 K/mm3 (0.9-3.2); Lymphocytes Percent Auto 11.7 % (18.3-44.2); Mean Corpuscular HGB Conc 32.7 g/dl (32-36); Mean Corpuscular Hemoglobin 28.6 pg (26-34); Mean Corpuscular Volume 87.5 fl (80-100); Mean Platelet Volume 8.7 fl (7.4-10.4); Monocytes Percent Auto 5.7 % (2.6-8.5); Neutrophils Absolute Auto 13.4 K/mm3 (1.3-6.7); Neutrophils Percent Auto 78.7 % (45.5-73.1); Platelet Count Result 211 k/mm3 (150-375); Red Blood Count 3.53 M/mm3 (4.6-6.20); Red Cell Distribution Width 16.2 % (11.5-14.5)
[2022-07-25 06:23] LABS: Anion Gap 7 mmol/L (8-16); Blood Urea Nitrogen 82 mg/dL (9-20); Carbon Dioxide 22 mmol/L (22-30); Chloride 95 mmol/L (98-107); Estimated CRCL calculation 13 ml/min; Estimated Glomerular Filt Rate 12; Glucose 214 mg/dL (65-110); Potassium 3.9 mmol/L (3.4-5.0); Sodium 124 mmol/L (137-145)
--- NOTE | 2022-07-25 08:42 | PCOTNOTE ---
Attempted to see patient this am, however patient declined. Pt reported I was up in the chair at 6 am. I took a bath yesterday when my was here. Pt reported typically bathing at home everyday, however just got back to bed at this time.
[2022-07-25 08:44] LABS: Glucose Point of Care 200 mg/dl (65-105)
--- NOTE | 2022-07-25 08:53 | PCPTNOTE ---
Attempted to see patient for PT, however patient declined. Patient reported he was up in the chair this morning and just got back in bed. Patient would like therapy to come back later.
[2022-07-25] MEDS: ROSUVASTATIN 10 MG TABLET PO (09:20)
[2022-07-25] MEDS: CHOLECALCIFEROL 1,000 UNITS TABLET 2000 UNITS PO (09:20)
[2022-07-25] MEDS: TAMSULOSIN HCL 0.4 MG CAPSULE PO (09:20)
[2022-07-25] MEDS: CYANOCOBALAMIN 1,000 MCG TABLET 1000 MCG PO (09:20)
[2022-07-25] MEDS: ASCORBIC ACID 500 MG TABLET PO (09:20)
[2022-07-25] MEDS: APIXABAN 5 MG TABLET PO ×2 (09:20→16:36)
[2022-07-25] MEDS: METOPROLOL TARTRATE 25 MG TABLET PO ×2 (09:20→20:57)
[2022-07-25] MEDS: FINASTERIDE 5 MG TABLET PO (09:20)
[2022-07-25] MEDS: levoFLOXacin 500 MG/D5W 100 ML 500 MG/100 ML BAG 66.67 MG IVPB (09:22)
[2022-07-25] MEDS: INSULIN ASPART (*BKC) 100 UNITS/ML SUB-Q ×4 (09:22→18:07)
[2022-07-25] MEDS: TIMOLOL MALEATE 0.5% OP SOLN 5 ML BOTTLE 1 DROP EACH EYE ×2 (09:29→16:35)
[2022-07-25] MEDS: AMIODARONE HCL 200 MG TABLET PO ×2 (09:46→16:36)
[2022-07-25 12:41] LABS: Glucose Point of Care 230 mg/dl (65-105)
[2022-07-25 14:01] LABS: Glucose Point of Care 236 mg/dl (65-105)
--- NOTE | 2022-07-25 14:57 | P.PNIM_ITS ---
Progress Note: A&P Assessment and Plan (1) Sepsis: Code(s): A41.9 - Sepsis, unspecified organism Status: Acute Assessment and Plan: septic on presentation evident by fever, tachycardia, leukocytosis, hypotension in the setting of acute UTI * lactic within normal limits * continue IV antibiotics as described below * Hypotension resolved, BP remaining stable * ?T-max 102.6?.? Remaining afebrile since 07/20 * ?Leukocytosis improving today down to 17.0 * ?blood cultures are negative * ?monitor vital signs and urine output (2) UTI (urinary tract infection): Code(s): N39.0 - Urinary tract infection, site not specified Status: Acute Assessment and Plan: urinalysis grossly abnormal on presentation * Urine culture with growth of >100k Klebsiella pneumoniae * Continue IV Levaquin for concurrent coverage of epididymitis based on susceptibility report from urine culture (3) Epididymitis: Code(s): N45.1 - Epididymitis Status: Acute Assessment and Plan: ?patient complained of scrotal edema and pain on 07/22 * scrotal ultrasound revealed right epididymitis with no testicular mass lesion or torsion * CT of abdomen/pelvis with no acute findings aside from mildly large para- aortic lymph node which was felt to be reactive * appreciate urology consultation * continue IV Levaquin and Flagyl * scrotal elevation * continue Rosa catheter (4) Acute kidney injury: Code(s): N17.9 - Acute kidney failure, unspecified Status: Acute Assessment and Plan: Baseline creatinine appears to be 1.3. Creatinine unchanged today, remaining elevated to 4.7 today * ?initially felt to be prerenal secondary to dehydration/diuresis vs ATN from acute infection,?likely worsened due to hypoperfusion from hypotension * ?appreciate nephrology recommendations * ?furosemide, metformin, and lisinopril on hold * ?renal US unremarkable, no evidence of hydronephrosis or renal calculi * ?patient has been rehydrated with IV fluids with no improvement.? IV fluids discontinued on 07/23 today per Nephrology recommendations * Urine output improved * ?repeat renal ultrasound on 07/23 unremarkable, no evidence of obstruction * ?monitor BMP closely (5) Atrial fibrillation with rapid ventricular response: Code(s): I48.91 - Unspecified atrial fibrillation Status: Acute Assessment and Plan: ?patient with onset of atrial fibrillation with rapid ventricular response? on 07/21 with heart rate in the 140s.? Patient previously in sinus rhythm. * ?Patient given 1 time dose of digoxin with improvement in heart rate * ?continue metoprolol tartrate and amiodarone * ?continue Eliquis for stroke prophylaxis * ?continue to monitor on telemetry (6) Hyponatremia: Code(s): E87.1 - Hypo-osmolality and hyponatremia Status: Acute Assessment and Plan: sodium 124 today. * ?IV fluids discontinued * fluid restriction diet 1200 ml/day implemented per nephrology recommendations * ?monitor sodium levels closely (7) Altered mental status: Code(s): R41.82 - Altered mental status, unspecified Status: Resolved Assessment and Plan: likely secondary to urinary tract infection * ?mental status has returned back to baseline * ?plan as above (8) Chronic heart failure: Code(s): I50.9 - Heart failure, unspecified Status: Acute Assessment and Plan: ?history of CHF, no prior echo available for review * ?patient noted to be mildly edematou
--- NOTE | 2022-07-25 14:57 | PM.IMPN ---
Progress Note: A&P Assessment and Plan (1) Sepsis: Code(s): A41.9 - Sepsis, unspecified organism Status: Acute Assessment and Plan: septic on presentation evident by fever, tachycardia, leukocytosis, hypotension in the setting of acute UTI lactic within normal limits continue IV antibiotics as described below Hypotension resolved, BP remaining stable ?T-max 102.6?.? Remaining afebrile since 07/20 ?Leukocytosis improving today down to 17.0 ?blood cultures are negative ?monitor vital signs and urine output (2) UTI (urinary tract infection): Code(s): N39.0 - Urinary tract infection, site not specified Status: Acute Assessment and Plan: urinalysis grossly abnormal on presentation Urine culture with growth of >100k Klebsiella pneumoniae Continue IV Levaquin for concurrent coverage of epididymitis based on susceptibility report from urine culture (3) Epididymitis: Code(s): N45.1 - Epididymitis Status: Acute Assessment and Plan: ?patient complained of scrotal edema and pain on 07/22 scrotal ultrasound revealed right epididymitis with no testicular mass lesion or torsion CT of abdomen/pelvis with no acute findings aside from mildly large para-aortic lymph node which was felt to be reactive appreciate urology consultation continue IV Levaquin and Flagyl scrotal elevation continue Rosa catheter (4) Acute kidney injury: Code(s): N17.9 - Acute kidney failure, unspecified Status: Acute Assessment and Plan: Baseline creatinine appears to be 1.3. Creatinine unchanged today, remaining elevated to 4.7 today ?initially felt to be prerenal secondary to dehydration/diuresis vs ATN from acute infection,?likely worsened due to hypoperfusion from hypotension ?appreciate nephrology recommendations ?furosemide, metformin, and lisinopril on hold ?renal US unremarkable, no evidence of hydronephrosis or renal calculi ?patient has been rehydrated with IV fluids with no improvement.? IV fluids discontinued on 07/23 today per Nephrology recommendations Urine output improved ?repeat renal ultrasound on 07/23 unremarkable, no evidence of obstruction ?monitor BMP closely (5) Atrial fibrillation with rapid ventricular response: Code(s): I48.91 - Unspecified atrial fibrillation Status: Acute Assessment and Plan: ?patient with onset of atrial fibrillation with rapid ventricular response? on 07/21 with heart rate in the 140s.? Patient previously in sinus rhythm. ?Patient given 1 time dose of digoxin with improvement in heart rate ?continue metoprolol tartrate and amiodarone ?continue Eliquis for stroke prophylaxis ?continue to monitor on telemetry (6) Hyponatremia: Code(s): E87.1 - Hypo-osmolality and hyponatremia Status: Acute Assessment and Plan: sodium 124 today. ?IV fluids discontinued fluid restriction diet 1200 ml/day implemented per nephrology recommendations ?monitor sodium levels closely (7) Altered mental status: Code(s): R41.82 - Altered mental status, unspecified Status: Resolved Assessment and Plan: likely secondary to urinary tract infection ?mental status has returned back to baseline ?plan as above (8) Chronic heart failure: Code(s): I50.9 - Heart failure, unspecified Status: Acute Assessment and Plan: ?history of CHF, no prior echo available for review ?patient noted to be mildly edematous on presentation, therefore given IV Lasix 40 mg IV b.i.d. ?CXR on presentation without? evidence of pulmonary edema ?Lasix discontinued on 07/20 given worsened renal function ?monitor intake and output and weigh daily ?heart healthy diet (9) Diabetes mellitus: Code(s): E11.9 - Type 2 diabetes mellitus without complications Status: Acute Assessment and Plan: A1c is 8.2 ?continue Accu-Cheks, sliding scale insulin, hypogly
--- NOTE | 2022-07-25 15:00 | PM.PNNEP ---
Progress Note: A&P Assessment and Plan (1) Acute kidney injury: Code(s): N17.9 - Acute kidney failure, unspecified Status: Acute Assessment and Plan: the patient has acute kidney injury. I do not know if he had chronic subtle damage from that Bactrim incident but his creatinine was normal when he was admitted here. renal ultrasound was normal. Bladder was decompressed. Urine electrolytes are non pre renal. CPK is normal UA shows bladder infection urine sediment by my own microscopy shows muddy brown casts, no red cell casts nor dysmorphic red cells. This is most likely ATN from infection. Possibly the bladder infection on top of prostatic retention led to the systemic effects of this infection. He has a UTI and also epididymitis. His creatinine leveled off. He does not look volume depleted. Will continue treatment of the UTI. He is making a lot of urine. he had 1700 out yesterday I talked with Dr. Trejo at [facility]. He says that the patient was sent in to the hospital in April with an elevated creatinine. His Bactrim was discontinued and the creatinine improved within a day or 2. They did not think that this was an allergic interstitial nephritis but rather the creatinine worsened because of the Trimethoprim effect. He left with a creatinine of 1.4 on May 02. They felt that his kidney function was actually okay. (2) Atrial fibrillation: Code(s): I48.91 - Unspecified atrial fibrillation Status: Acute Assessment and Plan: The patient has apparently a history of paroxysmal atrial fibrillation. His EKG now though shows sinus tach (3) Sepsis: Code(s): A41.9 - Sepsis, unspecified organism Status: Acute Assessment and Plan: the patient has a UTI. Blood cultures are negative. urine culture shows Klebsiella sensitive to Levaquin. He also has epididymitis. His white count is still elevated but finally is coming down. he is on Levaquin (4) Dyslipidemia: Code(s): E78.5 - Hyperlipidemia, unspecified Status: Acute Assessment and Plan: The patient is on rosuvastatin. (5) Diabetes mellitus: Code(s): E11.9 - Type 2 diabetes mellitus without complications Status: Acute Assessment and Plan: Management per hospitalist's (6) HTN (hypertension): Code(s): I10 - Essential (primary) hypertension Status: Acute Assessment and Plan: his blood pressure is better. He is on no blood pressure meds at this point His blood pressure is coming up. It seems that the systemic effects of the infection are easing up. Subjective Date/time seen: 07/25/22 15:00 Interval history: Jaguar is feeling a little better today. still has pain in the scrotum with any pressure or movement. He is weak and he has to have help standing up. No shortness of breath or chest pain Exam Narrative: WDWN in NAD skin no rash head ncat lungs clear bilaterally cor reg no rub or gallop abd BS+ nontender and soft. scrotum is large as before and violaceous. ext 1+ edema. scrotal edema present Objective Data Vital Signs Vital Signs: Vital Signs - 24 hr 07/24/22 16:00 07/24/22 17:00 07/24/22 16:00 Temperature 96.9 F L Pulse Rate 82 74 Respiratory Rate 16 Blood Pressure 97/48 L Pulse Oximetry 96 Oxygen Delivery 07/24/22 20:40 07/24/22 21:41 07/24/22 20:00 Temperature 97.9 F Pulse Rate 114 H 116 H Respiratory Rate 18 Blood Pressure 93/57 L Pulse Oximetry 96 96 Oxygen Delivery Room Air 07/24/22 20:00 07/24/22 23:21 07/24/22 23:23 Temperature 97.8 F Pulse Rate 116 H 90 90 Respiratory Rate 18 Blood Pressure 131/58 L Pulse Oximetry 96 Oxygen Delivery 07/25/22 00:00 07/25/22 04:00 07/25/22 04:56 Temperature 97.6 F Pulse Rate 93 76 84 Respiratory Rate 18 Blood Pressure 145/51 H Pulse Oximetry 96 Oxygen Del
[2022-07-25] MEDS: polyethylene glycoL 3350 17 GM POWD.PACK PO (16:35)
[2022-07-25 17:39] LABS: Glucose Point of Care 157 mg/dl (65-105)
[2022-07-25] MEDS: ALBUTEROL SULFATE (*SP) AEROSOL 1 PUFF 2 PUFF INHALATION (18:22)
--- NOTE | 2022-07-25 19:45 | WPDUROPN2 ---
Progress Note: A&P Assessment and Plan (1) Epididymitis: Code(s): N45.1 - Epididymitis Status: Acute Assessment and Plan: clinically improving on levaquin, wbc down. continue scrotal elevation -urinary retention continue flomax and finasteride void trial possibly prior to discharge or with his primary urologist at [facility] (2) Sepsis: Code(s): A41.9 - Sepsis, unspecified organism Status: Acute Subjective Subjective Date/Time Seen: 07/25/22 14:45 Review of Systems Constitutional: Constitutional: Reports body ache(s), Reports fatigue and Reports lethargy Eyes: Eyes: Reports as per HPI and Reports no additional eye complaints ENT: Reports system reviewed and no additional complaints, except as documented and Denies dysphagia Cardiovascular: Cardiovascular: Denies chest pain, Denies lightheadedness and Denies palpitations Respiratory: Respiratory: Reports no additional respiratory complaints and Denies dyspnea Gastrointestinal: Gastrointestinal: Denies melena and Denies diarrhea Genitourinary: Genitourinary: Reports as per HPI Musculoskeletal: Musculoskeletal: Reports no additional musculoskeletal complaints Integumentary/Breasts: Skin/Breast: Reports system reviewed and no additional complaints, except as docu Neurologic: Reports system reviewed and no additional complaints, except as documented Exam Const: General: comfortable and no acute distress HENMT: Face/Nose/Sinus: Normal nares present and no epistaxis Mouth: Yes moist mucous membranes abnormal Eyes: General: appearance normal, both eyes and all related structures Sclera: sclerae normal EOM: EOMs intact bilaterally Neck: Neck: supple Resp: Effort & Inspection: normal respiratory effort Cardio: Rate: tachycardic GI: GI Palp: Yes Soft to palpation, No Tenderness to palpation present (GI) and No Guarding due to palpation present (GI) : Male General Exam: Yes tenderness (right scrotum swollen, mild reacrtive hydrocele and induration, no palapabl) Other: no palpable abscess Urinary Catheter: Urinary Catheter: patent and draining and urine cloudy Skin: Other: scattered ecchymosis Neuro: General: gait normal Extrem: General: normal to inspection Psych: Speech and movement: Normal speech and movement present Objective Data Vital Signs Vital Signs: Vital Signs - 24 hr 07/24/22 20:40 07/24/22 21:41 07/24/22 20:00 Temperature 36.6 C Pulse Rate 114 H 116 H Respiratory Rate 18 Blood Pressure 93/57 L Pulse Oximetry 96 96 Oxygen Delivery Room Air 07/24/22 20:00 07/24/22 23:21 07/24/22 23:23 Temperature 36.6 C Pulse Rate 116 H 90 90 Respiratory Rate 18 Blood Pressure 131/58 L Pulse Oximetry 96 Oxygen Delivery 07/25/22 00:00 07/25/22 04:00 07/25/22 04:56 Temperature 36.4 C Pulse Rate 93 76 84 Respiratory Rate 18 Blood Pressure 145/51 H Pulse Oximetry 96 Oxygen Delivery 07/25/22 09:20 07/25/22 09:46 07/25/22 09:22 Temperature Pulse Rate 80 83 Respiratory Rate Blood Pressure Pulse Oximetry Oxygen Delivery Room Air 07/25/22 08:00 07/25/22 12:00 07/25/22 15:25 Temperature 36.5 C Pulse Rate 79 73 75 Respiratory Rate 18 Blood Pressure 102/51 L Pulse Oximetry 96 Oxygen Delivery 07/25/22 16:36 07/25/22 16:00 Temperature Pulse Rate 74 80 Respiratory Rate Blood Pressure Pulse Oximetry Oxygen Delivery Intake/Output Intake/Output: Intake & Output 07/22/22 07/23/22 07/24/22 07/25/22 23:59 23:59 23:59 23:59 Intake Total 1999 3040 720 1020 Output Total 917 071 4027 1250 Balance 1875 2415 -1055 -230 Meds/Results Medications: Active Medications Generic Name Dose Route Start Last Admin Trade Name Freq PRN Reason Stop Dose Admin Acetaminophen 650 mg 07/23/22 12:09 Acetaminophen 325 Mg Tablet PO Q4H PRN Headache Albuterol 2 puff 07/20/22 08:37 07/25/22 18
[2022-07-25 20:39] LABS: Glucose Point of Care 139 mg/dl (65-105)
[2022-07-25] MEDS: LATANOPROST 0.005% OP SOLN 2.5 ML BTL 1 DROP EACH EYE (20:57)
[2022-07-25] MEDS: guaiFENesin 12 HR 600 MG TABCR PO (20:57)
[2022-07-25] MEDS: DOCUSATE SODIUM 100 MG CAPSULE PO (20:57)
[2022-07-25] MEDS: SENNOSIDES 8.6 MG TABLET PO (20:57)
[2022-07-26] VITALS (14 sets, daily range): BP systolic 100–150; BP diastolic 53–81; PULSE 71–85; RESP 16–18; TEMP 36.1–36.6; O2SAT 97–100
[2022-07-26] MEDS: ALBUTEROL SULFATE (*SP) AEROSOL 1 PUFF 2 PUFF INHALATION ×2 (00:05→03:31)
[2022-07-26] MEDS: metroNIDAZOLE 250 MG TABLET 500 MG PO ×3 (05:21→20:30)
[2022-07-26 06:23] LABS: Hematocrit 30.8 % (42.0-52.0); Hemoglobin 9.9 g/dL (14.0-18.0); Mean Corpuscular HGB Conc 32.1 g/dl (32-36); Mean Corpuscular Hemoglobin 27.9 pg (26-34); Mean Corpuscular Volume 86.8 fl (80-100); Mean Platelet Volume 8.3 fl (7.4-10.4); Platelet Count Result 199 k/mm3 (150-375); Red Blood Count 3.55 M/mm3 (4.6-6.20); Red Cell Distribution Width 16.3 % (11.5-14.5)
[2022-07-26 06:55] LABS: Anion Gap 7 mmol/L (8-16); Blood Urea Nitrogen 89 mg/dL (9-20); Calcium 8.1 mg/dL (8.4-10.2); Carbon Dioxide 24 mmol/L (22-30); Chloride 98 mmol/L (98-107); Estimated CRCL calculation 14 ml/min; Estimated Glomerular Filt Rate 13; Glucose 122 mg/dL (65-110); Potassium 4.1 mmol/L (3.4-5.0); Sodium 129 mmol/L (137-145)
[2022-07-26 08:33] LABS: Glucose Point of Care 121 mg/dl (65-105)
--- NOTE | 2022-07-26 08:52 | PCOTNOTE ---
Patient with PT this AM, will try again to see for OT today or continue plan of care tomorrow 07/27/22.
[2022-07-26] MEDS: BENZOCAINE/MENTHOL (*BKC) 18 EA LOZENGE 1 LOZENGE PO ×2 (09:30→17:12)
[2022-07-26] MEDS: guaiFENesin 12 HR 600 MG TABCR PO ×2 (09:31→20:30)
[2022-07-26] MEDS: INSULIN ASPART (*BKC) 100 UNITS/ML SUB-Q ×5 (09:32→17:13)
[2022-07-26] MEDS: polyethylene glycoL 3350 17 GM POWD.PACK PO (09:32)
[2022-07-26] MEDS: METOPROLOL TARTRATE 25 MG TABLET PO ×2 (09:32→20:30)
[2022-07-26] MEDS: AMIODARONE HCL 200 MG TABLET PO ×2 (09:32→17:11)
[2022-07-26] MEDS: CYANOCOBALAMIN 1,000 MCG TABLET 1000 MCG PO (09:32)
[2022-07-26] MEDS: FINASTERIDE 5 MG TABLET PO (09:33)
[2022-07-26] MEDS: ASCORBIC ACID 500 MG TABLET PO (09:33)
[2022-07-26] MEDS: DOCUSATE SODIUM 100 MG CAPSULE PO ×2 (09:33→20:30)
[2022-07-26] MEDS: CHOLECALCIFEROL 1,000 UNITS TABLET 2000 UNITS PO (09:33)
[2022-07-26] MEDS: ROSUVASTATIN 10 MG TABLET PO (09:33)
[2022-07-26] MEDS: APIXABAN 5 MG TABLET PO ×2 (09:34→17:11)
[2022-07-26] MEDS: TAMSULOSIN HCL 0.4 MG CAPSULE PO (09:34)
[2022-07-26] MEDS: TIMOLOL MALEATE 0.5% OP SOLN 5 ML BOTTLE 1 DROP EACH EYE ×2 (09:34→17:12)
[2022-07-26 12:21] LABS: Glucose Point of Care 212 mg/dl (65-105)
[2022-07-26] MEDS: BISACODYL 10 MG SUPPOSITORY RECTAL (12:47)
--- NOTE | 2022-07-26 16:41 | P.PNIM_ITS ---
Progress Note: A&P Assessment and Plan (1) Sepsis: Code(s): A41.9 - Sepsis, unspecified organism Status: Acute Assessment and Plan: septic on presentation evident by fever, tachycardia, leukocytosis, hypotension in the setting of acute UTI * lactic within normal limits * continue IV antibiotics as described below * Hypotension resolved, BP remaining stable * ?T-max 102.6?.? Remaining afebrile since 07/20 * ?Leukocytosis improving today down to 17.0 * ?blood cultures are negative * ?monitor vital signs and urine output (2) UTI (urinary tract infection): Code(s): N39.0 - Urinary tract infection, site not specified Status: Acute Assessment and Plan: urinalysis grossly abnormal on presentation * Urine culture with growth of >100k Klebsiella pneumoniae * Continue IV Levaquin for concurrent coverage of epididymitis based on susceptibility report from urine culture (3) Epididymitis: Code(s): N45.1 - Epididymitis Status: Acute Assessment and Plan: ?patient complained of scrotal edema and pain on 07/22 * scrotal ultrasound revealed right epididymitis with no testicular mass lesion or torsion * CT of abdomen/pelvis with no acute findings aside from mildly large para- aortic lymph node which was felt to be reactive * appreciate urology consultation * continue IV Levaquin and Flagyl * scrotal elevation * continue Rosa catheter (4) Acute kidney injury: Code(s): N17.9 - Acute kidney failure, unspecified Status: Acute Assessment and Plan: Baseline creatinine appears to be 1.3. Creatinine with slight improvement to 4.4 today * ?initially felt to be prerenal secondary to dehydration/diuresis vs ATN from acute infection,?likely worsened due to hypoperfusion from hypotension * ?appreciate nephrology recommendations * ?furosemide, metformin, and lisinopril on hold * ?renal US unremarkable, no evidence of hydronephrosis or renal calculi * ?patient has been rehydrated with IV fluids with no improvement.? IV fluids discontinued on 07/23 per Nephrology recommendations * Urine output improved * ?repeat renal ultrasound on 07/23 unremarkable, no evidence of obstruction * ?monitor BMP closely (5) Atrial fibrillation with rapid ventricular response: Code(s): I48.91 - Unspecified atrial fibrillation Status: Acute Assessment and Plan: ?patient with onset of atrial fibrillation with rapid ventricular response? on 07/21 with heart rate in the 140s.? Patient previously in sinus rhythm. * ?Patient given 1 time dose of digoxin with improvement in heart rate * ?continue metoprolol tartrate and amiodarone * ?continue Eliquis for stroke prophylaxis * ?continue to monitor on telemetry (6) Hyponatremia: Code(s): E87.1 - Hypo-osmolality and hyponatremia Status: Acute Assessment and Plan: sodium improved to 129 today. * ?IV fluids discontinued 07/23 * fluid restriction diet 1200 ml/day implemented per nephrology recommendations * ?monitor sodium levels closely (7) Altered mental status: Code(s): R41.82 - Altered mental status, unspecified Status: Resolved Assessment and Plan: likely secondary to urinary tract infection * ?mental status has returned back to baseline * ?plan as above (8) Chronic heart failure: Code(s): I50.9 - Heart failure, unspecified Status: Acute Assessment and Plan: ?history of CHF, no prior echo available for review * ?patient noted to be mildly edemat
--- NOTE | 2022-07-26 16:41 | PM.IMPN ---
Progress Note: A&P Assessment and Plan (1) Sepsis: Code(s): A41.9 - Sepsis, unspecified organism Status: Acute Assessment and Plan: septic on presentation evident by fever, tachycardia, leukocytosis, hypotension in the setting of acute UTI lactic within normal limits continue IV antibiotics as described below Hypotension resolved, BP remaining stable ?T-max 102.6?.? Remaining afebrile since 07/20 ?Leukocytosis improving today down to 17.0 ?blood cultures are negative ?monitor vital signs and urine output (2) UTI (urinary tract infection): Code(s): N39.0 - Urinary tract infection, site not specified Status: Acute Assessment and Plan: urinalysis grossly abnormal on presentation Urine culture with growth of >100k Klebsiella pneumoniae Continue IV Levaquin for concurrent coverage of epididymitis based on susceptibility report from urine culture (3) Epididymitis: Code(s): N45.1 - Epididymitis Status: Acute Assessment and Plan: ?patient complained of scrotal edema and pain on 07/22 scrotal ultrasound revealed right epididymitis with no testicular mass lesion or torsion CT of abdomen/pelvis with no acute findings aside from mildly large para-aortic lymph node which was felt to be reactive appreciate urology consultation continue IV Levaquin and Flagyl scrotal elevation continue Rosa catheter (4) Acute kidney injury: Code(s): N17.9 - Acute kidney failure, unspecified Status: Acute Assessment and Plan: Baseline creatinine appears to be 1.3. Creatinine with slight improvement to 4.4 today ?initially felt to be prerenal secondary to dehydration/diuresis vs ATN from acute infection,?likely worsened due to hypoperfusion from hypotension ?appreciate nephrology recommendations ?furosemide, metformin, and lisinopril on hold ?renal US unremarkable, no evidence of hydronephrosis or renal calculi ?patient has been rehydrated with IV fluids with no improvement.? IV fluids discontinued on 07/23 per Nephrology recommendations Urine output improved ?repeat renal ultrasound on 07/23 unremarkable, no evidence of obstruction ?monitor BMP closely (5) Atrial fibrillation with rapid ventricular response: Code(s): I48.91 - Unspecified atrial fibrillation Status: Acute Assessment and Plan: ?patient with onset of atrial fibrillation with rapid ventricular response? on 07/21 with heart rate in the 140s.? Patient previously in sinus rhythm. ?Patient given 1 time dose of digoxin with improvement in heart rate ?continue metoprolol tartrate and amiodarone ?continue Eliquis for stroke prophylaxis ?continue to monitor on telemetry (6) Hyponatremia: Code(s): E87.1 - Hypo-osmolality and hyponatremia Status: Acute Assessment and Plan: sodium improved to 129 today. ?IV fluids discontinued 07/23 fluid restriction diet 1200 ml/day implemented per nephrology recommendations ?monitor sodium levels closely (7) Altered mental status: Code(s): R41.82 - Altered mental status, unspecified Status: Resolved Assessment and Plan: likely secondary to urinary tract infection ?mental status has returned back to baseline ?plan as above (8) Chronic heart failure: Code(s): I50.9 - Heart failure, unspecified Status: Acute Assessment and Plan: ?history of CHF, no prior echo available for review ?patient noted to be mildly edematous on presentation, therefore given IV Lasix 40 mg IV b.i.d. ?CXR on presentation without? evidence of pulmonary edema ?Lasix discontinued on 07/20 given worsened renal function ?monitor intake and output and weigh daily ?heart healthy diet (9) Diabetes mellitus: Code(s): E11.9 - Type 2 diabetes mellitus without complications Status: Acute Assessment and Plan: A1c is 8.2 ?continue Accu-Cheks, sliding scale insulin, hypo
[2022-07-26 17:26] LABS: Glucose Point of Care 203 mg/dl (65-105)
[2022-07-26 20:07] LABS: Glucose Point of Care 187 mg/dl (65-105)
[2022-07-26] MEDS: LATANOPROST 0.005% OP SOLN 2.5 ML BTL 1 DROP EACH EYE (20:30)
[2022-07-26] MEDS: SENNOSIDES 8.6 MG TABLET PO (20:30)
--- NOTE | 2022-07-26 22:06 | PM.PNNEP ---
Progress Note: A&P Assessment and Plan (1) Acute kidney injury: Code(s): N17.9 - Acute kidney failure, unspecified Status: Acute Assessment and Plan: the patient has acute kidney injury. underlying kidney function is about normal. renal ultrasound was normal. Bladder was decompressed. Urine electrolytes are non pre renal. CPK is normal UA shows bladder infection urine sediment by my own microscopy shows muddy brown casts, no red cell casts nor dysmorphic red cells. This is most likely ATN from infection. Possibly the bladder infection on top of prostatic retention led to the systemic effects of this infection. He has a UTI and also epididymitis. His creatinine has started to decrease some He does not look volume depleted. Will continue treatment of the UTI. He is making a lot of urine. he had 1975 out over night continue present tx (2) Atrial fibrillation: Code(s): I48.91 - Unspecified atrial fibrillation Status: Acute Assessment and Plan: The patient has apparently a history of paroxysmal atrial fibrillation. His EKG now though shows sinus tach (3) Sepsis: Code(s): A41.9 - Sepsis, unspecified organism Status: Acute Assessment and Plan: the patient has a UTI. Blood cultures are negative. urine culture shows Klebsiella sensitive to Levaquin. He also has epididymitis. His white count is still elevated but finally is coming down. he is on Levaquin (4) Dyslipidemia: Code(s): E78.5 - Hyperlipidemia, unspecified Status: Acute Assessment and Plan: The patient is on rosuvastatin. (5) Diabetes mellitus: Code(s): E11.9 - Type 2 diabetes mellitus without complications Status: Acute Assessment and Plan: Management per hospitalist's (6) HTN (hypertension): Code(s): I10 - Essential (primary) hypertension Status: Acute Assessment and Plan: his blood pressure is better. systolic swinging between 100 and 150 too early to start antihypertensives back Subjective Date/time seen: 07/26/22 22:06 Interval history: Jaguar is feeling a little better today. scrotum the same no cp or sob Exam Narrative: WDWN in NAD skin no rash head ncat lungs clear to ausc cor reg no rub abd BS+ nontender and soft. scrotum is large as before and violaceous. ext 1+ edema. scrotal edema present Objective Data Vital Signs Vital Signs: Vital Signs - 24 hr 07/26/22 00:00 07/26/22 03:17 07/26/22 03:31 Temperature Pulse Rate 79 79 Respiratory Rate 16 Blood Pressure Pulse Oximetry 97 98 Oxygen Delivery Nasal Cannula Nasal Cannula Oxygen Flow Rate 2 2 07/26/22 03:31 07/26/22 04:00 07/26/22 05:28 Temperature 97.8 F Pulse Rate 79 80 77 Respiratory Rate 16 18 Blood Pressure 100/53 L Pulse Oximetry 100 Oxygen Delivery Oxygen Flow Rate 07/26/22 09:32 07/26/22 09:32 07/26/22 09:15 Temperature Pulse Rate 77 77 79 Respiratory Rate Blood Pressure Pulse Oximetry Oxygen Delivery Oxygen Flow Rate 07/26/22 09:15 07/26/22 12:00 07/26/22 15:16 Temperature 96.9 F L Pulse Rate 71 72 Respiratory Rate 16 Blood Pressure 103/54 L Pulse Oximetry 99 Oxygen Delivery Room Air Oxygen Flow Rate 07/26/22 16:00 07/26/22 17:11 07/26/22 20:30 Temperature Pulse Rate 74 74 85 Respiratory Rate Blood Pressure Pulse Oximetry Oxygen Delivery Oxygen Flow Rate 07/26/22 20:00 07/26/22 21:53 Temperature 97.9 F Pulse Rate 75 72 Respiratory Rate 16 Blood Pressure 150/81 H Pulse Oximetry 99 Oxygen Delivery Oxygen Flow Rate Intake/Output Intake/Output: Intake & Output 07/23/22 07/24/22 07/25/22 07/26/22 23:59 23:59 23:59 23:59 Intake Total 3040 720 1020 1200 Output Total 276 [address] [place] [address] [phone] Meds/Results Medications: A
[2022-07-27] VITALS (14 sets, daily range): BP systolic 104–128; BP diastolic 56–80; PULSE 71–82; RESP 16–18; TEMP 36.4–36.7; O2SAT 95–99
[2022-07-27] MEDS: metroNIDAZOLE 250 MG TABLET 500 MG PO ×3 (05:47→20:34)
[2022-07-27 05:52] LABS: Hematocrit 32.5 % (42.0-52.0); Hemoglobin 10.3 g/dL (14.0-18.0); Mean Corpuscular HGB Conc 31.7 g/dl (32-36); Mean Corpuscular Hemoglobin 28.2 pg (26-34); Mean Platelet Volume 8.4 fl (7.4-10.4); Platelet Count Result 216 k/mm3 (150-375); Red Blood Count 3.65 M/mm3 (4.6-6.20); Red Cell Distribution Width 16.6 % (11.5-14.5); White Blood Count 13.2 K/mm3 (4.5-10.0)
[2022-07-27 05:56] LABS: Albumin Level 2.8 g/dL (3.5-5.1); Anion Gap 10 mmol/L (8-16); Blood Urea Nitrogen 85 mg/dL (9-20); Calcium 8.2 mg/dL (8.4-10.2); Carbon Dioxide 21 mmol/L (22-30); Chloride 103 mmol/L (98-107); Estimated CRCL calculation 16 ml/min; Estimated Glomerular Filt Rate 15; Glucose 126 mg/dL (65-110); Potassium 4.1 mmol/L (3.4-5.0); Sodium 134 mmol/L (137-145)
[2022-07-27 08:31] LABS: Glucose Point of Care 120 mg/dl (65-105)
--- NOTE | 2022-07-27 08:43 | P.CDI_ITS ---
CDI Query Clarification Request Unknown as no echo is available, however, it is currently labeled as chronic <KENYA Herring - Last Filed: 07/27/22 15:50> Clarified Diagnosis Clarified Diagnosis: Pt with documented history of CHF. Pt takes furosemide as a home medication and also received during this admission. CHF noted on the assessment and plan. Pt with documented edema. Please specify type and acuity of heart failure if known. * Acute * Chronic * Acute on Chronic * Unknown * Systolic * Diastolic * Combined Systolic and Diastolic * Unknown <Priscila Nunez RN - Last Filed: 07/27/22 08:46>
[2022-07-27] MEDS: polyethylene glycoL 3350 17 GM POWD.PACK PO (08:49)
[2022-07-27] MEDS: TIMOLOL MALEATE 0.5% OP SOLN 5 ML BOTTLE 1 DROP EACH EYE ×2 (08:49→17:39)
[2022-07-27] MEDS: METOPROLOL TARTRATE 25 MG TABLET PO ×2 (08:49→20:33)
[2022-07-27] MEDS: ROSUVASTATIN 10 MG TABLET PO (08:50)
[2022-07-27] MEDS: APIXABAN 5 MG TABLET PO ×2 (08:50→17:38)
[2022-07-27] MEDS: ASCORBIC ACID 500 MG TABLET PO (08:50)
[2022-07-27] MEDS: CHOLECALCIFEROL 1,000 UNITS TABLET 2000 UNITS PO (08:50)
[2022-07-27] MEDS: DOCUSATE SODIUM 100 MG CAPSULE PO ×2 (08:50→20:33)
[2022-07-27] MEDS: FINASTERIDE 5 MG TABLET PO (08:50)
[2022-07-27] MEDS: TAMSULOSIN HCL 0.4 MG CAPSULE PO (08:50)
[2022-07-27] MEDS: AMIODARONE HCL 200 MG TABLET PO ×2 (08:50→17:39)
[2022-07-27] MEDS: CYANOCOBALAMIN 1,000 MCG TABLET 1000 MCG PO (08:50)
[2022-07-27] MEDS: guaiFENesin 12 HR 600 MG TABCR PO ×2 (08:50→20:33)
--- NOTE | 2022-07-27 08:50 | WPDUROPN2 ---
Progress Note: A&P Assessment and Plan (1) Epididymitis: Code(s): N45.1 - Epididymitis Status: Acute (2) Urinary retention due to benign prostatic hyperplasia: Code(s): N40.1 - Benign prostatic hyperplasia with lower urinary tract symptoms; R33.8 - Other retention of urine Status: Acute Assessment and Plan: I slowly resolving with Levaquin. Recommend a 2 week course with anticipation of slow resolution of scrotal swelling and induration. Oral Levaquin is sufficient. Catheter out for voiding trial today that he has been on both tamsulosin and finasteride for several days. Subjective Subjective Date/Time Seen: 07/27/22 08:50 Scrotal discomfort and swelling slowly subsiding Exam Const: General: comfortable and no acute distress HENMT: Face/Nose/Sinus: Normal nares present and no epistaxis Mouth: Yes moist mucous membranes abnormal Eyes: General: appearance normal, both eyes and all related structures Sclera: sclerae normal EOM: EOMs intact bilaterally Neck: Neck: supple Resp: Effort & Inspection: normal respiratory effort Cardio: Rate: tachycardic GI: GI Palp: Yes Soft to palpation, No Tenderness to palpation present (GI) and No Guarding due to palpation present (GI) : Male General Exam: Yes tenderness (right scrotum swollen, mild reacrtive hydrocele and induration, no palapabl) Other: no palpable abscess Urinary Catheter: Urinary Catheter: patent and draining and urine cloudy Skin: Other: scattered ecchymosis Neuro: General: gait normal Extrem: General: normal to inspection Psych: Speech and movement: Normal speech and movement present Objective Data Vital Signs Vital Signs: Vital Signs - 24 hr 07/26/22 09:32 07/26/22 09:32 07/26/22 09:15 Temperature Pulse Rate 77 77 79 Respiratory Rate Blood Pressure Pulse Oximetry Oxygen Delivery 07/26/22 09:15 07/26/22 12:00 07/26/22 15:16 Temperature 96.9 F L Pulse Rate 71 72 Respiratory Rate 16 Blood Pressure 103/54 L Pulse Oximetry 99 Oxygen Delivery Room Air 07/26/22 16:00 07/26/22 17:11 07/26/22 20:30 Temperature Pulse Rate 74 74 85 Respiratory Rate Blood Pressure Pulse Oximetry Oxygen Delivery 07/26/22 20:00 07/26/22 21:53 07/26/22 20:00 Temperature 97.9 F Pulse Rate 75 72 72 Respiratory Rate 16 16 Blood Pressure 150/81 H Pulse Oximetry 99 99 Oxygen Delivery Room Air 07/27/22 00:00 07/27/22 04:00 07/27/22 06:00 Temperature 98.0 F Pulse Rate 71 77 74 Respiratory Rate 16 Blood Pressure 128/80 Pulse Oximetry 99 Oxygen Delivery Intake/Output Intake/Output: Intake & Output 07/24/22 07/25/22 07/26/22 07/27/22 23:59 23:59 23:59 23:59 Intake Total 720 1020 1200 Output Total 1774 5033 0881 850 [facility] -[phone] Meds/Results Medications: Active Medications Generic Name Dose Route Start Last Admin Trade Name Freq PRN Reason Stop Dose Admin Acetaminophen 650 mg 07/23/22 12:09 Acetaminophen 325 Mg Tablet PO Q4H PRN Headache Albuterol 2 puff 07/20/22 08:37 07/26/22 03:31 Albuterol Sulfate (*Sp) Aerosol 1 Puff INHALATION 2 puff QID PRN Administration shortness of breath or wheezing Amiodarone HCl 200 mg 07/20/22 00:15 07/26/22 17:11 Amiodarone Hcl 200 Mg Tablet PO 200 mg BID STEVEN Administration Apixaban 5 mg 07/20/22 09:00 07/26/22 17:11 Apixaban 5 Mg Tablet PO 5 mg BID STEVEN Administration Ascorbic Acid 500 mg 07/21/22 09:00 07/26/22 09:33 Ascorbic Acid 500 Mg Tablet PO 500 mg DAILY STEVEN Administration Benzocaine 1 lozenge 07/26/22 06:54 07/26/22 17:12 Benzocaine/Menthol (*Bkc) 18 Ea Lozenge PO 1 lozenge PRN PRN Administration Sore Throat Bisacodyl 10 mg 07/26/22 11:19 Bisacodyl 10 Mg Suppository RECTAL QAM PRN Constipation Cyanocobalamin 1,000 mcg 07/21/22 09:00 07/26/22 09:32 Cyanocob
[2022-07-27] MEDS: BENZOCAINE/MENTHOL (*BKC) 18 EA LOZENGE 1 LOZENGE PO ×2 (08:51→17:46)
[2022-07-27] MEDS: levoFLOXacin 500 MG/D5W 100 ML 500 MG/100 ML BAG 66.6 MG IVPB (08:51)
[2022-07-27] MEDS: INSULIN ASPART (*BKC) 100 UNITS/ML SUB-Q ×3 (08:51→17:40)
[2022-07-27 12:05] LABS: Glucose Point of Care 158 mg/dl (65-105)
--- NOTE | 2022-07-27 13:15 | PM.IMPN ---
Progress Note: A&P Assessment and Plan (1) Sepsis: Code(s): A41.9 - Sepsis, unspecified organism Status: Acute Assessment and Plan: septic on presentation evident by fever, tachycardia, leukocytosis, hypotension in the setting of acute UTI lactic within normal limits continue IV antibiotics as described below Hypotension resolved, BP remaining stable T-max 102.6?.? Remaining afebrile since 07/20 Leukocytosis improving today down to 13.2 blood cultures are negative monitor vital signs and urine output (2) UTI (urinary tract infection): Code(s): N39.0 - Urinary tract infection, site not specified Status: Acute Assessment and Plan: urinalysis grossly abnormal on presentation Urine culture with growth of >100k Klebsiella pneumoniae Continue IV Levaquin for concurrent coverage of epididymitis based on susceptibility report from urine culture (3) Epididymitis: Code(s): N45.1 - Epididymitis Status: Acute Assessment and Plan: ?patient complained of scrotal edema and pain on 07/22 scrotal ultrasound revealed right epididymitis with no testicular mass lesion or torsion CT of abdomen/pelvis with no acute findings aside from mildly large para-aortic lymph node which was felt to be reactive appreciate urology consultation continue IV Levaquin and Flagyl scrotal elevation Catheter has been removed, has been able to void (4) Acute kidney injury: Code(s): N17.9 - Acute kidney failure, unspecified Status: Acute Assessment and Plan: Baseline creatinine appears to be 1.3. Creatinine with slight improvement to 3.90 today ?initially felt to be prerenal secondary to dehydration/diuresis vs ATN from acute infection,?likely worsened due to hypoperfusion from hypotension ?appreciate nephrology recommendations ?furosemide, metformin, and lisinopril on hold ?renal US unremarkable, no evidence of hydronephrosis or renal calculi ?patient has been rehydrated with IV fluids with no improvement.? IV fluids discontinued on 07/23 per Nephrology recommendations Urine output improved ?repeat renal ultrasound on 07/23 unremarkable, no evidence of obstruction ?monitor BMP closely (5) Atrial fibrillation with rapid ventricular response: Code(s): I48.91 - Unspecified atrial fibrillation Status: Acute Assessment and Plan: ?patient with onset of atrial fibrillation with rapid ventricular response? on 07/21 with heart rate in the 140s.? Patient previously in sinus rhythm. ?Patient given 1 time dose of digoxin with improvement in heart rate ?continue metoprolol tartrate and amiodarone ?continue Eliquis for stroke prophylaxis ?continue to monitor on telemetry (6) Hyponatremia: Code(s): E87.1 - Hypo-osmolality and hyponatremia Status: Acute Assessment and Plan: sodium improved to 134 today. ?IV fluids discontinued 07/23 fluid restriction diet 1200 ml/day implemented per nephrology recommendations ?monitor sodium levels closely (7) Altered mental status: Code(s): R41.82 - Altered mental status, unspecified Status: Resolved Assessment and Plan: likely secondary to urinary tract infection ?mental status has returned back to baseline ?plan as above Resolved (8) Chronic heart failure: Code(s): I50.9 - Heart failure, unspecified Status: Acute Assessment and Plan: ?history of CHF, no prior echo available for review ?patient noted to be mildly edematous on presentation, therefore given IV Lasix 40 mg IV b.i.d. ?CXR on presentation without? evidence of pulmonary edema Get echo Currently appears to be chronic heart failure more than likely diastolic with the bilateral lower extremity edema ?Lasix discontinued on 07/20 given worsened renal function ?monitor intake and output and weigh daily ?heart healthy diet (9) Diabetes mellitus: Code(s): E11.9 - T
--- NOTE | 2022-07-27 13:15 | P.PNIM_ITS ---
Progress Note: A&P Assessment and Plan (1) Sepsis: Code(s): A41.9 - Sepsis, unspecified organism Status: Acute Assessment and Plan: septic on presentation evident by fever, tachycardia, leukocytosis, hypotension in the setting of acute UTI * lactic within normal limits * continue IV antibiotics as described below * Hypotension resolved, BP remaining stable * T-max 102.6?.? Remaining afebrile since 07/20 * Leukocytosis improving today down to 13.2 * blood cultures are negative * monitor vital signs and urine output (2) UTI (urinary tract infection): Code(s): N39.0 - Urinary tract infection, site not specified Status: Acute Assessment and Plan: urinalysis grossly abnormal on presentation * Urine culture with growth of >100k Klebsiella pneumoniae * Continue IV Levaquin for concurrent coverage of epididymitis based on susceptibility report from urine culture (3) Epididymitis: Code(s): N45.1 - Epididymitis Status: Acute Assessment and Plan: ?patient complained of scrotal edema and pain on 07/22 * scrotal ultrasound revealed right epididymitis with no testicular mass lesion or torsion * CT of abdomen/pelvis with no acute findings aside from mildly large para- aortic lymph node which was felt to be reactive * appreciate urology consultation * continue IV Levaquin and Flagyl * scrotal elevation * Catheter has been removed, has been able to void (4) Acute kidney injury: Code(s): N17.9 - Acute kidney failure, unspecified Status: Acute Assessment and Plan: Baseline creatinine appears to be 1.3. Creatinine with slight improvement to 3.90 today * ?initially felt to be prerenal secondary to dehydration/diuresis vs ATN from acute infection,?likely worsened due to hypoperfusion from hypotension * ?appreciate nephrology recommendations * ?furosemide, metformin, and lisinopril on hold * ?renal US unremarkable, no evidence of hydronephrosis or renal calculi * ?patient has been rehydrated with IV fluids with no improvement.? IV fluids discontinued on 07/23 per Nephrology recommendations * Urine output improved * ?repeat renal ultrasound on 07/23 unremarkable, no evidence of obstruction * ?monitor BMP closely (5) Atrial fibrillation with rapid ventricular response: Code(s): I48.91 - Unspecified atrial fibrillation Status: Acute Assessment and Plan: ?patient with onset of atrial fibrillation with rapid ventricular response? on 07/21 with heart rate in the 140s.? Patient previously in sinus rhythm. * ?Patient given 1 time dose of digoxin with improvement in heart rate * ?continue metoprolol tartrate and amiodarone * ?continue Eliquis for stroke prophylaxis * ?continue to monitor on telemetry (6) Hyponatremia: Code(s): E87.1 - Hypo-osmolality and hyponatremia Status: Acute Assessment and Plan: sodium improved to 134 today. * ?IV fluids discontinued 07/23 * fluid restriction diet 1200 ml/day implemented per nephrology recommendations * ?monitor sodium levels closely (7) Altered mental status: Code(s): R41.82 - Altered mental status, unspecified Status: Resolved Assessment and Plan: likely secondary to urinary tract infection * ?mental status has returned back to baseline * ?plan as above * Resolved (8) Chronic heart failure: Code(s): I50.9 - Heart failure, unspecified Status: Acute Assessment and Plan: ?history of CHF, no prior echo available for review
--- NOTE | 2022-07-27 14:25 | PM.PNNEP ---
Progress Note: A&P Assessment and Plan (1) Acute kidney injury: Code(s): N17.9 - Acute kidney failure, unspecified Status: Acute Assessment and Plan: suspect ATN from infection (bladder/UTI + epididymitis) complicated by prostatic retention baseline creatinine/renal function normal evaluation to date: urine electrolytes non-prerenal UA c/w bladder infection/UTI urine sediment with muddy brown casts CPK normal creatinine slowly improving excellent urine output follow trend of repeat labs and UOP (2) Sepsis: Code(s): A41.9 - Sepsis, unspecified organism Status: Acute Assessment and Plan: due to UTI + epididymitis urine culture with Klebsiella blood cultures negative to date continue antibiotic therapy (3) HTN (hypertension): Code(s): I10 - Essential (primary) hypertension Status: Chronic Assessment and Plan: reasonable control at this time follow trend of hemodynamics (4) Diabetes mellitus: Code(s): E11.9 - Type 2 diabetes mellitus without complications Status: Chronic Assessment and Plan: follow accuchecks glycemic control Will continue to follow. Subjective Date/time seen: 07/27/22 14:25 Chart reviewed -- assuming care from Dr. Goldberg; renal function continues to slowly improve with good urine output noted; no other acute complaints voiced at this time; no other issues/events overnight or earlier this morning. Exam Narrative: General: WD/WN male/female in NAD Heart: normal S1 and S2; no rub Lungs: clear to auscultation Abdomen: soft, nontender, nondistended, positive bowel sounds Extremities: no cyanosis or clubbing; 1+ edema (scrotal edema noted as well) Skin: warm and dry Objective Data Vital Signs Vital Signs: Vital Signs Temp Pulse Resp BP Pulse Ox O2 Del Method 07/27/22 12:00 71 07/27/22 08:30 Room Air 07/27/22 08:30 81 07/27/22 08:50 74 07/27/22 08:49 74 07/27/22 06:00 98.0 F 74 16 128/80 99 07/27/22 04:00 77 07/27/22 00:00 71 07/26/22 20:00 72 16 99 Room Air 07/26/22 21:53 97.9 F 72 16 150/81 H 99 07/26/22 20:00 75 07/26/22 20:30 85 Intake/Output Intake/Output: Intake & Output 07/24/22 07/25/22 07/26/22 07/27/22 23:59 23:59 23:59 23:59 Intake Total 720 1020 1200 820 Output Total 1775 1250 1975 1150 [facility]1055 -[phone] Meds/Results Medications: Active Medications Generic Name Dose Route Start Last Admin Trade Name Freq PRN Reason Stop Dose Admin Acetaminophen 650 mg 07/23/22 12:09 Acetaminophen 325 Mg Tablet PO Q4H PRN Headache Albuterol 2 puff 07/20/22 08:37 07/26/22 03:31 Albuterol Sulfate (*Sp) Aerosol 1 Puff INHALATION 2 puff QID PRN Administration shortness of breath or wheezing Amiodarone HCl 200 mg 07/20/22 00:15 07/27/22 17:39 Amiodarone Hcl 200 Mg Tablet PO 200 mg BID STEVEN Administration Apixaban 5 mg 07/20/22 09:00 07/27/22 17:38 Apixaban 5 Mg Tablet PO 5 mg BID STEVEN Administration Ascorbic Acid 500 mg 07/21/22 09:00 07/27/22 08:50 Ascorbic Acid 500 Mg Tablet PO 500 mg DAILY STEVEN Administration Benzocaine 1 lozenge 07/26/22 06:54 07/27/22 17:46 Benzocaine/Menthol (*Bkc) 18 Ea Lozenge PO 1 lozenge PRN PRN Administration Sore Throat Bisacodyl 10 mg 07/26/22 11:19 Bisacodyl 10 Mg Suppository RECTAL QAM PRN Constipation Cyanocobalamin 1,000 mcg 07/21/22 09:00 07/27/22 08:50 Cyanocobalamin 1,000 Mcg Tablet PO 1,000 mcg DAILY STEVEN Administration Dextrose 12.5 gm 07/19/22 22:12 Dextrose 50% 25 Gm/50 Ml Syringe IV PUSH PRN PRN Hypoglycemia Protocol Docusate Sodium 100 mg 07/25/22 21:00 07/27/22 08:50 Docusate Sodium 100 Mg Capsule PO 100 mg Q12HR STEVEN Administration Finasteride 5 mg 07/21/22 09:00 07/27/22 08:50
--- NOTE | 2022-07-27 14:25 | P.PNNP_ITS ---
Progress Note: A&P Assessment and Plan (1) Acute kidney injury: Code(s): N17.9 - Acute kidney failure, unspecified Status: Acute Assessment and Plan: * suspect ATN from infection (bladder/UTI + epididymitis) complicated by prostatic retention * baseline creatinine/renal function normal * evaluation to date: * urine electrolytes non-prerenal * UA c/w bladder infection/UTI * urine sediment with muddy brown casts * CPK normal * creatinine slowly improving * excellent urine output * follow trend of repeat labs and UOP (2) Sepsis: Code(s): A41.9 - Sepsis, unspecified organism Status: Acute Assessment and Plan: * due to UTI + epididymitis * urine culture with Klebsiella * blood cultures negative to date * continue antibiotic therapy (3) HTN (hypertension): Code(s): I10 - Essential (primary) hypertension Status: Chronic Assessment and Plan: * reasonable control at this time * follow trend of hemodynamics (4) Diabetes mellitus: Code(s): E11.9 - Type 2 diabetes mellitus without complications Status: Chronic Assessment and Plan: * follow accuchecks * glycemic control Will continue to follow. Subjective Date/time seen: 07/27/22 14:25 Chart reviewed -- assuming care from Dr. Goldberg; renal function continues to slowly improve with good urine output noted; no other acute complaints voiced at this time; no other issues/events overnight or earlier this morning. Exam Narrative: General: WD/WN male/female in NAD Heart: normal S1 and S2; no rub Lungs: clear to auscultation Abdomen: soft, nontender, nondistended, positive bowel sounds Extremities: no cyanosis or clubbing; 1+ edema (scrotal edema noted as well) Skin: warm and dry Objective Data Vital Signs Vital Signs: Vital Signs Temp Pulse Resp BP Pulse Ox O2 Del Method 07/27/22 12:00 71 07/27/22 08:30 Room Air 07/27/22 08:30 81 07/27/22 08:50 74 07/27/22 08:49 74 07/27/22 06:00 98.0 F 74 16 128/80 99 07/27/22 04:00 77 07/27/22 00:00 71 07/26/22 20:00 72 16 99 Room Air 07/26/22 21:53 97.9 F 72 16 150/81 H 99 07/26/22 20:00 75 07/26/22 20:30 85 Intake/Output Intake/Output: Intake & Output 07/24/22 07/25/22 07/26/22 07/27/22 23:59 23:59 23:59 23:59 Intake Total 720 1020 1200 820 Output Total 1775 1250 1975 1150 [facility] -1055 -230 [phone] -330 Meds/Results Medications: Active Medications Generic Name Dose Route Start Last Admin Trade Name Freq PRN Reason Stop Dose Admin Acetaminophen 650 mg 07/23/22 12:09 Acetaminophen 325 Mg Tablet PO Q4H PRN Headache Albuterol 2 puff 07/20/22 08:37 07/26/22 03:31 Albuterol Sulfate (*Sp) Aerosol 1 Puff INHALATION 2 puff QID PRN Administration shortness of breath or wheezing Amiodarone HCl 200 mg 07/20/22 00:15 07/27/22 17:39 Amiodarone Hcl 200 Mg Tablet PO 200 mg BID STEVEN Administration Apixaban 5 mg 07/20/22 09:00 07/27/22 17:38 Apixaban 5 M
[2022-07-27 17:17] LABS: Glucose Point of Care 168 mg/dl (65-105)
[2022-07-27] MEDS: SENNOSIDES 8.6 MG TABLET PO (20:33)
[2022-07-27] MEDS: LATANOPROST 0.005% OP SOLN 2.5 ML BTL 1 DROP EACH EYE (20:33)
[2022-07-27 21:59] LABS: Glucose Point of Care 152 mg/dl (65-105)
[2022-07-28] VITALS (12 sets, daily range): BP systolic 106–113; BP diastolic 56–79; PULSE 70–86; RESP 17–20; TEMP 36.1–36.6; O2SAT 94–98
[2022-07-28] MEDS: metroNIDAZOLE 250 MG TABLET 500 MG PO ×3 (05:49→20:33)
[2022-07-28 06:00] LABS: Basophils Absolute Auto 0.1 K/mm3 (0.0-0.1); Basophils Percent Auto 0.4 % (0.2-1.2); Eosinophils Percent Auto 0.2 % (0-4.4); Hematocrit 32.1 % (42.0-52.0); Hemoglobin 10.2 g/dL (14.0-18.0); Immature Granulocyte Absolute 0.37 K/mm3 (0.00-0.031); Immature Granulocyte Percent A 2.6 % (0-0.5); Lymphocytes Absolute Auto 2.72 K/mm3 (0.9-3.2); Lymphocytes Percent Auto 18.8 % (18.3-44.2); Mean Corpuscular HGB Conc 31.8 g/dl (32-36); Mean Corpuscular Hemoglobin 28.3 pg (26-34); Mean Corpuscular Volume 88.9 fl (80-100); Mean Platelet Volume 8.2 fl (7.4-10.4); Monocytes Absolute Auto 0.8 K/mm3 (0.1-0.6); Monocytes Percent Auto 5.8 % (2.6-8.5); Neutrophils Absolute Auto 10.5 K/mm3 (1.3-6.7); Neutrophils Percent Auto 72.2 % (45.5-73.1); Platelet Count Result 208 k/mm3 (150-375); Red Blood Count 3.61 M/mm3 (4.6-6.20); Red Cell Distribution Width 16.4 % (11.5-14.5); White Blood Count 14.5 K/mm3 (4.5-10.0)
[2022-07-28 06:14] LABS: Alanine Aminotransferase 33 U/L (6-50); Albumin Level 2.7 g/dL (3.5-5.1); Alkaline Phosphatase 77 U/L (38-126); Anion Gap 9 mmol/L (8-16); Aspartate Amino Transferase 34 U/L (17-59); Bilirubin,Total 0.4 mg/dL (0.2-1.3); Blood Urea Nitrogen 78 mg/dL (9-20); Calcium 8.1 mg/dL (8.4-10.2); Carbon Dioxide 21 mmol/L (22-30); Chloride 104 mmol/L (98-107); Estimated CRCL calculation 19 ml/min; Estimated Glomerular Filt Rate 18; Glucose 146 mg/dL (65-110); Magnesium 1.5 mg/dL (1.6-2.3); Sodium 134 mmol/L (137-145)
--- NOTE | 2022-07-28 07:22 | WPDUROPN2 ---
Progress Note: A&P Assessment and Plan (1) Urinary retention due to benign prostatic hyperplasia: Code(s): N40.1 - Benign prostatic hyperplasia with lower urinary tract symptoms; R33.8 - Other retention of urine Status: Acute (2) Epididymitis: Code(s): N45.1 - Epididymitis Status: Acute Assessment and Plan: Patient seems to be voiding very well with catheter out all. I would recommend discharge on both tamsulosin and finasteride and follow-up with his urologist at [place] in several weeks Levaquin x2 weeks for epididymitis Subjective Subjective Date/Time Seen: 07/28/22 07:22Subjectively, voiding well with catheter out. No palpable bladder distention suggestive of significant retention Review of Systems Cardiovascular: Cardiovascular: Denies chest pain, Denies lightheadedness, Denies palpitations and Denies dyspnea Respiratory: Respiratory: Denies dyspnea Gastrointestinal: Gastrointestinal: Denies diarrhea, Denies nausea and Denies vomiting Genitourinary: Genitourinary: Denies hematuria and Denies dysuria Endocrine: Endocrine: Denies palpitations Exam Const: General: no acute distress Resp: Effort & Inspection: normal respiratory effort GI: Inspection: non-distended GI Palp: No abdominal tenderness and No Guarding due to palpation present (GI) Auscultation: normal bowel sounds Objective Data Vital Signs Vital Signs: Vital Signs - 24 hr 07/27/22 08:49 07/27/22 08:50 07/27/22 08:30 Temperature Pulse Rate 74 74 81 Respiratory Rate Blood Pressure Pulse Oximetry Oxygen Delivery 07/27/22 08:30 07/27/22 12:00 07/27/22 14:48 Temperature 97.6 F Pulse Rate 71 76 Respiratory Rate 16 Blood Pressure 114/61 Pulse Oximetry 97 Oxygen Delivery Room Air 07/27/22 16:00 07/27/22 17:39 07/27/22 20:33 Temperature Pulse Rate 76 76 82 Respiratory Rate Blood Pressure Pulse Oximetry Oxygen Delivery 07/27/22 20:00 07/27/22 21:13 07/27/22 21:41 Temperature 98.1 F Pulse Rate 79 78 81 Respiratory Rate 18 Blood Pressure 104/56 L Pulse Oximetry 96 95 Oxygen Delivery Room Air 07/27/22 20:00 07/28/22 00:00 07/28/22 04:00 Temperature Pulse Rate 81 76 86 Respiratory Rate 18 Blood Pressure Pulse Oximetry 95 Oxygen Delivery Room Air 07/28/22 05:08 Temperature 97.9 F Pulse Rate 77 Respiratory Rate 20 Blood Pressure 106/63 Pulse Oximetry 94 Oxygen Delivery Intake/Output Intake/Output: Intake & Output 07/25/22 07/26/22 07/27/22 07/28/22 23:59 23:59 23:59 23:59 Intake Total 1020 1200 820 240 Output Total 1250 1975 1150 [facility] -507 240 Meds/Results Medications: Active Medications Generic Name Dose Route Start Last Admin Trade Name Freq PRN Reason Stop Dose Admin Acetaminophen 650 mg 07/23/22 12:09 Acetaminophen 325 Mg Tablet PO Q4H PRN Headache Albuterol 2 puff 07/20/22 08:37 07/26/22 03:31 Albuterol Sulfate (*Sp) Aerosol 1 Puff INHALATION 2 puff QID PRN Administration shortness of breath or wheezing Amiodarone HCl 200 mg 07/20/22 00:15 07/27/22 17:39 Amiodarone Hcl 200 Mg Tablet PO 200 mg BID STEVEN Administration Apixaban 5 mg 07/20/22 09:00 07/27/22 17:38 Apixaban 5 Mg Tablet PO 5 mg BID STEVEN Administration Ascorbic Acid 500 mg 07/21/22 09:00 07/27/22 08:50 Ascorbic Acid 500 Mg Tablet PO 500 mg DAILY STEVEN Administration Benzocaine 1 lozenge 07/26/22 06:54 07/27/22 17:46 Benzocaine/Menthol (*Bkc) 18 Ea Lozenge PO 1 lozenge PRN PRN Administration Sore Throat Bisacodyl 10 mg 07/26/22 11:19 Bisacodyl 10 Mg Suppository RECTAL QAM PRN Constipation Cyanocobalamin 1,000 mcg 07/21/22 09:00 07/27/22 08:50 Cyanocobalamin 1,000 Mcg Tablet PO 1,000 mcg DAILY STEVEN Administration Dextrose 12.5 gm 07/19/22 22:12 Dextrose 50% 25 Gm/50 Ml Syringe IV PUSH PRN PRN
[2022-07-28] MEDS: TIMOLOL MALEATE 0.5% OP SOLN 5 ML BOTTLE 1 DROP EACH EYE ×2 (08:50→17:32)
[2022-07-28] MEDS: INSULIN ASPART (*BKC) 100 UNITS/ML SUB-Q ×3 (08:50→17:32)
[2022-07-28] MEDS: CHOLECALCIFEROL 1,000 UNITS TABLET 2000 UNITS PO (08:51)
[2022-07-28] MEDS: ROSUVASTATIN 10 MG TABLET PO (08:51)
[2022-07-28] MEDS: FINASTERIDE 5 MG TABLET PO (08:51)
[2022-07-28] MEDS: CYANOCOBALAMIN 1,000 MCG TABLET 1000 MCG PO (08:52)
[2022-07-28] MEDS: AMIODARONE HCL 200 MG TABLET PO ×2 (08:52→17:31)
[2022-07-28] MEDS: METOPROLOL TARTRATE 25 MG TABLET PO ×2 (08:52→20:33)
[2022-07-28] MEDS: ASCORBIC ACID 500 MG TABLET PO (08:52)
[2022-07-28] MEDS: DOCUSATE SODIUM 100 MG CAPSULE PO ×2 (08:52→20:33)
[2022-07-28] MEDS: BENZOCAINE/MENTHOL (*BKC) 18 EA LOZENGE 1 LOZENGE PO ×2 (08:52→17:39)
[2022-07-28] MEDS: guaiFENesin 12 HR 600 MG TABCR PO ×2 (08:52→20:33)
[2022-07-28] MEDS: APIXABAN 5 MG TABLET PO ×2 (08:52→17:31)
[2022-07-28] MEDS: TAMSULOSIN HCL 0.4 MG CAPSULE PO (08:53)
[2022-07-28 08:55] LABS: Glucose Point of Care 171 mg/dl (65-105)
--- NOTE | 2022-07-28 12:00 | P.PNIM_ITS ---
Progress Note: A&P Assessment and Plan (1) Sepsis: Code(s): A41.9 - Sepsis, unspecified organism Status: Acute Assessment and Plan: septic on presentation evident by fever, tachycardia, leukocytosis, hypotension in the setting of acute UTI * lactic within normal limits * continue IV antibiotics as described below * Hypotension resolved, BP remaining stable * T-max 102.6?.? Remaining afebrile since 07/20 * Leukocytosis improving today down to 13.2 * blood cultures are negative * monitor vital signs and urine output * Resolved (2) UTI (urinary tract infection): Code(s): N39.0 - Urinary tract infection, site not specified Status: Acute Assessment and Plan: urinalysis grossly abnormal on presentation * Urine culture with growth of >100k Klebsiella pneumoniae * Continue IV Levaquin for concurrent coverage of epididymitis based on susceptibility report from urine culture (3) Epididymitis: Code(s): N45.1 - Epididymitis Status: Acute Assessment and Plan: ?patient complained of scrotal edema and pain on 07/22 * scrotal ultrasound revealed right epididymitis with no testicular mass lesion or torsion * CT of abdomen/pelvis with no acute findings aside from mildly large para- aortic lymph node which was felt to be reactive * appreciate urology consultation * continue IV Levaquin and Flagyl * scrotal elevation * Catheter has been removed, has been able to void (4) Acute kidney injury: Code(s): N17.9 - Acute kidney failure, unspecified Status: Acute Assessment and Plan: Baseline creatinine appears to be 1.3. Creatinine continues to trend down and is currently 3.30 today * ?initially felt to be prerenal secondary to dehydration/diuresis vs ATN from acute infection,?likely worsened due to hypoperfusion from hypotension * ?appreciate nephrology recommendations * ?furosemide, metformin, and lisinopril on hold * ?renal US unremarkable, no evidence of hydronephrosis or renal calculi * ?patient has been rehydrated with IV fluids with no improvement.? IV fluids discontinued on 07/23 per Nephrology recommendations * Urine output improved * ?repeat renal ultrasound on 07/23 unremarkable, no evidence of obstruction * ?monitor BMP closely (5) Atrial fibrillation with rapid ventricular response: Code(s): I48.91 - Unspecified atrial fibrillation Status: Acute Assessment and Plan: ?patient with onset of atrial fibrillation with rapid ventricular response? on 07/21 with heart rate in the 140s.? Patient previously in sinus rhythm. * ?Patient given 1 time dose of digoxin with improvement in heart rate * ?continue metoprolol tartrate and amiodarone * ?continue Eliquis for stroke prophylaxis * ?continue to monitor on telemetry * Resolved at this time (6) Hyponatremia: Code(s): E87.1 - Hypo-osmolality and hyponatremia Status: Acute Assessment and Plan: sodium improved to 134 today. * ?IV fluids discontinued 07/23 * fluid restriction diet 1200 ml/day implemented per nephrology recommendations * ?monitor sodium levels closely (7) Altered mental status: Code(s): R41.82 - Altered mental status, unspecified Status: Resolved Assessment and Plan: likely secondary to urinary tract infection * ?mental status has returned back to baseline * ?plan as above * Resolved (8) Chronic heart failure: Code(s): I50.9 - Heart failure, unspecified Status: Acute Assessment and Plan:
--- NOTE | 2022-07-28 12:00 | PM.IMPN ---
Progress Note: A&P Assessment and Plan (1) Sepsis: Code(s): A41.9 - Sepsis, unspecified organism Status: Acute Assessment and Plan: septic on presentation evident by fever, tachycardia, leukocytosis, hypotension in the setting of acute UTI lactic within normal limits continue IV antibiotics as described below Hypotension resolved, BP remaining stable T-max 102.6?.? Remaining afebrile since 07/20 Leukocytosis improving today down to 13.2 blood cultures are negative monitor vital signs and urine output Resolved (2) UTI (urinary tract infection): Code(s): N39.0 - Urinary tract infection, site not specified Status: Acute Assessment and Plan: urinalysis grossly abnormal on presentation Urine culture with growth of >100k Klebsiella pneumoniae Continue IV Levaquin for concurrent coverage of epididymitis based on susceptibility report from urine culture (3) Epididymitis: Code(s): N45.1 - Epididymitis Status: Acute Assessment and Plan: ?patient complained of scrotal edema and pain on 07/22 scrotal ultrasound revealed right epididymitis with no testicular mass lesion or torsion CT of abdomen/pelvis with no acute findings aside from mildly large para-aortic lymph node which was felt to be reactive appreciate urology consultation continue IV Levaquin and Flagyl scrotal elevation Catheter has been removed, has been able to void (4) Acute kidney injury: Code(s): N17.9 - Acute kidney failure, unspecified Status: Acute Assessment and Plan: Baseline creatinine appears to be 1.3. Creatinine continues to trend down and is currently 3.30 today ?initially felt to be prerenal secondary to dehydration/diuresis vs ATN from acute infection,?likely worsened due to hypoperfusion from hypotension ?appreciate nephrology recommendations ?furosemide, metformin, and lisinopril on hold ?renal US unremarkable, no evidence of hydronephrosis or renal calculi ?patient has been rehydrated with IV fluids with no improvement.? IV fluids discontinued on 07/23 per Nephrology recommendations Urine output improved ?repeat renal ultrasound on 07/23 unremarkable, no evidence of obstruction ?monitor BMP closely (5) Atrial fibrillation with rapid ventricular response: Code(s): I48.91 - Unspecified atrial fibrillation Status: Acute Assessment and Plan: ?patient with onset of atrial fibrillation with rapid ventricular response? on 07/21 with heart rate in the 140s.? Patient previously in sinus rhythm. ?Patient given 1 time dose of digoxin with improvement in heart rate ?continue metoprolol tartrate and amiodarone ?continue Eliquis for stroke prophylaxis ?continue to monitor on telemetry Resolved at this time (6) Hyponatremia: Code(s): E87.1 - Hypo-osmolality and hyponatremia Status: Acute Assessment and Plan: sodium improved to 134 today. ?IV fluids discontinued 07/23 fluid restriction diet 1200 ml/day implemented per nephrology recommendations ?monitor sodium levels closely (7) Altered mental status: Code(s): R41.82 - Altered mental status, unspecified Status: Resolved Assessment and Plan: likely secondary to urinary tract infection ?mental status has returned back to baseline ?plan as above Resolved (8) Chronic heart failure: Code(s): I50.9 - Heart failure, unspecified Status: Acute Assessment and Plan: ?history of CHF, no prior echo available for review ?patient noted to be mildly edematous on presentation, therefore given IV Lasix 40 mg IV b.i.d. ?CXR on presentation without? evidence of pulmonary edema Echo ordered Currently appears to be chronic heart failure more than likely diastolic with the bilateral lower extremity edema ?Lasix discontinued on 07/20 given worsened renal function ?monitor intake and output and weigh daily ?heart healthy diet
--- NOTE | 2022-07-28 12:27 | P.PNNP_ITS ---
Progress Note: A&P Assessment and Plan (1) Acute kidney injury: Code(s): N17.9 - Acute kidney failure, unspecified Status: Acute Assessment and Plan: * suspect ATN from infection (bladder/UTI + epididymitis) complicated by prostatic retention * baseline creatinine/renal function normal * evaluation to date: * urine electrolytes non-prerenal * UA c/w bladder infection/UTI * urine sediment with muddy brown casts * CPK normal * creatinine slowly improving * excellent urine output * follow trend of repeat labs and UOP (2) Sepsis: Code(s): A41.9 - Sepsis, unspecified organism Status: Acute Assessment and Plan: * due to UTI + epididymitis * urine culture with Klebsiella * blood cultures negative to date * continue antibiotic therapy (3) HTN (hypertension): Code(s): I10 - Essential (primary) hypertension Status: Chronic Assessment and Plan: * reasonable control at this time * follow trend of hemodynamics (4) Diabetes mellitus: Code(s): E11.9 - Type 2 diabetes mellitus without complications Status: Chronic Assessment and Plan: * follow accuchecks * glycemic control Will continue to follow. Subjective Date/time seen: 07/28/22 12:27 Sitting up in chair at the time of my visit; renal function continues to improve with reasonable urine output; no apparent distress noted; no other acute complaints or concerns voiced at this time; anxious for discharge. Exam Narrative: General: WD/WN male/female in NAD Heart: normal S1 and S2; no rub Lungs: clear to auscultation Abdomen: soft, nontender, nondistended, positive bowel sounds Extremities: no cyanosis or clubbing; 1+ edema (scrotal edema noted as well) Skin: warm and intact Objective Data Vital Signs Vital Signs: Vital Signs Temp Pulse Resp BP Pulse Ox O2 Del Method 07/28/22 12:00 71 07/28/22 09:00 Room Air 07/28/22 09:00 80 07/28/22 08:52 77 07/28/22 08:52 77 07/28/22 05:08 97.9 F 77 20 106/63 94 07/28/22 04:00 86 07/28/22 00:00 76 07/27/22 20:00 81 18 95 Room Air 07/27/22 21:41 98.1 F 81 18 104/56 L 95 07/27/22 21:13 78 96 Room Air 07/27/22 20:00 79 07/27/22 20:33 82 07/27/22 17:39 76 07/27/22 16:00 76 Intake/Output Intake/Output: Intake & Output 07/25/22 07/26/22 07/27/22 07/28/22 23:59 23:59 23:59 23:59 Intake Total 1020 1200 820 720 Output Total 1250 1975 1150 [facility] -015 -775 -148 720 Meds/Results Medications: Active Medications Generic Name Dose Route Start Last Admin Trade Name Freq PRN Reason Stop Dose Admin Acetaminophen 650 mg 07/23/22 12:09 Acetaminophen 325 Mg Tablet PO Q4H PRN Headache Albuterol 2 puff 07/20/22 08:37 07/26/22 03:31 Albuterol Sulfate (*Sp) Aerosol 1 Puff INHALATION 2 puff QID PRN Administration shortness of breath or wheezing Amiodarone HCl 200 mg 07/20/22 00:15 07/28/22 08:52 Amiodarone Hcl 200 Mg Tablet PO 200 mg
--- NOTE | 2022-07-28 12:27 | PM.PNNEP ---
Progress Note: A&P Assessment and Plan (1) Acute kidney injury: Code(s): N17.9 - Acute kidney failure, unspecified Status: Acute Assessment and Plan: suspect ATN from infection (bladder/UTI + epididymitis) complicated by prostatic retention baseline creatinine/renal function normal evaluation to date: urine electrolytes non-prerenal UA c/w bladder infection/UTI urine sediment with muddy brown casts CPK normal creatinine slowly improving excellent urine output follow trend of repeat labs and UOP (2) Sepsis: Code(s): A41.9 - Sepsis, unspecified organism Status: Acute Assessment and Plan: due to UTI + epididymitis urine culture with Klebsiella blood cultures negative to date continue antibiotic therapy (3) HTN (hypertension): Code(s): I10 - Essential (primary) hypertension Status: Chronic Assessment and Plan: reasonable control at this time follow trend of hemodynamics (4) Diabetes mellitus: Code(s): E11.9 - Type 2 diabetes mellitus without complications Status: Chronic Assessment and Plan: follow accuchecks glycemic control Will continue to follow. Subjective Date/time seen: 07/28/22 12:27 Sitting up in chair at the time of my visit; renal function continues to improve with reasonable urine output; no apparent distress noted; no other acute complaints or concerns voiced at this time; anxious for discharge. Exam Narrative: General: WD/WN male/female in NAD Heart: normal S1 and S2; no rub Lungs: clear to auscultation Abdomen: soft, nontender, nondistended, positive bowel sounds Extremities: no cyanosis or clubbing; 1+ edema (scrotal edema noted as well) Skin: warm and intact Objective Data Vital Signs Vital Signs: Vital Signs Temp Pulse Resp BP Pulse Ox O2 Del Method 07/28/22 12:00 71 07/28/22 09:00 Room Air 07/28/22 09:00 80 07/28/22 08:52 77 07/28/22 08:52 77 07/28/22 05:08 97.9 F 77 20 106/63 94 07/28/22 04:00 86 07/28/22 00:00 76 07/27/22 20:00 81 18 95 Room Air 07/27/22 21:41 98.1 F 81 18 104/56 L 95 07/27/22 21:13 78 96 Room Air 07/27/22 20:00 79 07/27/22 20:33 82 07/27/22 17:39 76 07/27/22 16:00 76 Intake/Output Intake/Output: Intake & Output 07/25/22 07/26/22 07/27/22 07/28/22 23:59 23:59 23:59 23:59 Intake Total 1020 1200 820 720 Output Total 1250 1975 1150 [place] -230 -859 -948 720 Meds/Results Medications: Active Medications Generic Name Dose Route Start Last Admin Trade Name Freq PRN Reason Stop Dose Admin Acetaminophen 650 mg 07/23/22 12:09 Acetaminophen 325 Mg Tablet PO Q4H PRN Headache Albuterol 2 puff 07/20/22 08:37 07/26/22 03:31 Albuterol Sulfate (*Sp) Aerosol 1 Puff INHALATION 2 puff QID PRN Administration shortness of breath or wheezing Amiodarone HCl 200 mg 07/20/22 00:15 07/28/22 08:52 Amiodarone Hcl 200 Mg Tablet PO 200 mg BID STEVEN Administration Apixaban 5 mg 07/20/22 09:00 07/28/22 08:52 Apixaban 5 Mg Tablet PO 5 mg BID STEVEN Administration Ascorbic Acid 500 mg 07/21/22 09:00 07/28/22 08:52 Ascorbic Acid 500 Mg Tablet PO 500 mg DAILY STEVEN Administration Benzocaine 1 lozenge 07/26/22 06:54 07/28/22 08:52 Benzocaine/Menthol (*Bkc) 18 Ea Lozenge PO 1 lozenge PRN PRN Administration Sore Throat Bisacodyl 10 mg 07/26/22 11:19 Bisacodyl 10 Mg Suppository RECTAL QAM PRN Constipation Cyanocobalamin 1,000 mcg 07/21/22 09:00 07/28/22 08:52 Cyanocobalamin 1,000 Mcg Tablet PO 1,000 mcg DAILY STEVEN Administration Dextrose 12.5 gm 07/19/22 22:12 Dextrose 50% 25 Gm/50 Ml Syringe IV PUSH PRN PRN Hypoglycemia Protocol Docusate Sodium 100 mg 07/25/22 21:00 07/28/22 08:52 Docusate Sodium 100 Mg Capsule PO 100 mg Q1
--- NOTE | 2022-07-28 12:35 | PCNWS ---
Weekly nutritional screen. Patient is tolerating current diet with adequate intake. No weight loss reported. No nutritional needs at this time.
[2022-07-28 12:40] LABS: Glucose Point of Care 190 mg/dl (65-105)
[2022-07-28] MEDS: MAGNESIUM SULF 2 GM/WATER 50ML 2 GM/50 ML BAG IVPB (17:31)
[2022-07-28 17:46] LABS: Glucose Point of Care 168 mg/dl (65-105)
[2022-07-28] MEDS: SENNOSIDES 8.6 MG TABLET PO (20:33)
[2022-07-28] MEDS: LATANOPROST 0.005% OP SOLN 2.5 ML BTL 1 DROP EACH EYE (20:33)
[2022-07-28 20:58] LABS: Glucose Point of Care 188 mg/dl (65-105)
[2022-07-29] VITALS (9 sets, daily range): BP systolic 103–138; BP diastolic 47–70; PULSE 70–83; RESP 18–22; TEMP 36.1–36.9; O2SAT 92–99
--- NOTE | 2022-07-29 | ECHO_ITS ---
Patient Info Name: Jaguar Peters Age: 82 years : 1940 Gender: Male Ht: 65 in Wt: 246 lbs BSA: 2.32 m2 HR: 83 bpm BP: 110 / 70 mmHg Heart Rhythm: Sinus Rhythm Technical Quality: Fair Exam Date: 07/29/2022 8:58 AM Exam Location: [facility] Patient Status: Inpatient Admit Date: 07/21/2022 Staff Ordering Physician: Minesh Arredondo Information Security Director: Apryl Richards RDCS Attending Provider: Karen Lala PA-C Referring Physician: Arnulfo CHOU; Exam Type: CA echo dop color flow w con Study Info Indications - bilateral edema Complete two-dimensional, color flow and Doppler transthoracic echocardiogram is performed with contrast to opacify the left ventricle and to improve the deliniation of the left ventricle endocardial borders. Contrast/Agitated Saline Contrast/Ag. Saline: Definity Amount: 3.00 ml Administered By: Apryl Richards RDCS Existing IV Access: Yes IV Access Condition: patent with no signs of infiltration Summary 1. Normal left ventricular size thickness and vigorous systolic function. 2. Modestly enlarged left atrium. 3. No significant valvular disease. 4. Mildly sclerotic aortic valve which is not functionally stenotic. Left Ventricle Left ventricular chamber dimension is normal. Left ventricular systolic function is normal, estimated at 65-70%. The left ventricular diastolic function is normal. Right Ventricle Right ventricular chamber dimension is normal. Left Atria Left atrial chamber dimension is mildly enlarged. Right Atria Right atrial chamber dimension is normal. Aortic Valve The aortic valve is trileaflet. There is mild aortic valve sclerosis. Pulmonic Valve The pulmonic valve is not well visualized. Mitral Valve The mitral valve has normal leaflets. Tricuspid Valve The tricuspid valve leaflets are normal. Pericardium/Pleural The pericardium appears normal. Aorta The aortic root size at the sinus of Valsalva is normal. Left Ventricular Outflow Tract Name Value Normal LVOT 2D LVOT Diameter 1.93 cm LVOT Doppler LVOT Peak Gradient 3 mmHg LVOT Mean Gradient 2 mmHg LVOT VTI 19.25 cm LVOT VTI/AV VTI Ratio 0.59 LVOT Stroke Volume 56.56 ml LVOT CO 3.77 l/min LVOT CI 1.63 L/min/m2 Pulmonic Valve Name Value Normal RVOT Doppler RVOT Peak Gradient 2 mmHg PV Doppler PV Peak Gradient 5 mmHg Mitral Valve Name
[2022-07-29 05:47] LABS: Basophils Absolute Auto 0.1 K/mm3 (0.0-0.1); Basophils Percent Auto 0.5 % (0.2-1.2); Eosinophils Percent Auto 0.1 % (0-4.4); Hemoglobin 10.3 g/dL (14.0-18.0); Immature Granulocyte Absolute 0.27 K/mm3 (0.00-0.031); Immature Granulocyte Percent A 1.8 % (0-0.5); Lymphocytes Absolute Auto 3.43 K/mm3 (0.9-3.2); Lymphocytes Percent Auto 22.9 % (18.3-44.2); Mean Corpuscular HGB Conc 32.2 g/dl (32-36); Mean Corpuscular Hemoglobin 28.2 pg (26-34); Mean Corpuscular Volume 87.7 fl (80-100); Mean Platelet Volume 8.1 fl (7.4-10.4); Monocytes Absolute Auto 0.8 K/mm3 (0.1-0.6); Monocytes Percent Auto 5.1 % (2.6-8.5); Neutrophils Absolute Auto 10.4 K/mm3 (1.3-6.7); Neutrophils Percent Auto 69.6 % (45.5-73.1); Platelet Count Result 201 k/mm3 (150-375); Red Blood Count 3.65 M/mm3 (4.6-6.20); Red Cell Distribution Width 16.4 % (11.5-14.5)
[2022-07-29] MEDS: metroNIDAZOLE 250 MG TABLET 500 MG PO ×3 (05:53→21:16)
[2022-07-29 06:20] LABS: Alanine Aminotransferase 30 U/L (6-50); Albumin Level 2.7 g/dL (3.5-5.1); Alkaline Phosphatase 82 U/L (38-126); Anion Gap 7 mmol/L (8-16); Aspartate Amino Transferase 32 U/L (17-59); Bilirubin,Total 0.2 mg/dL (0.2-1.3); Blood Urea Nitrogen 61 mg/dL (9-20); Calcium 8.1 mg/dL (8.4-10.2); Carbon Dioxide 23 mmol/L (22-30); Chloride 103 mmol/L (98-107); Estimated CRCL calculation 22 ml/min; Estimated Glomerular Filt Rate 22; Glucose 161 mg/dL (65-110); Magnesium 1.9 mg/dL (1.6-2.3); Potassium 3.7 mmol/L (3.4-5.0); Sodium 133 mmol/L (137-145)
[2022-07-29] MEDS: APIXABAN 5 MG TABLET PO ×2 (08:34→17:36)
[2022-07-29] MEDS: CYANOCOBALAMIN 1,000 MCG TABLET 1000 MCG PO (08:34)
[2022-07-29] MEDS: ROSUVASTATIN 10 MG TABLET PO (08:34)
[2022-07-29] MEDS: FINASTERIDE 5 MG TABLET PO (08:34)
[2022-07-29] MEDS: levoFLOXacin 500 MG/D5W 100 ML 500 MG/100 ML BAG 66.67 MG IVPB (08:34)
[2022-07-29] MEDS: METOPROLOL TARTRATE 25 MG TABLET PO ×2 (08:34→21:15)
[2022-07-29] MEDS: CHOLECALCIFEROL 1,000 UNITS TABLET 2000 UNITS PO (08:34)
[2022-07-29] MEDS: ASCORBIC ACID 500 MG TABLET PO (08:34)
[2022-07-29] MEDS: DOCUSATE SODIUM 100 MG CAPSULE PO ×2 (08:35→21:15)
[2022-07-29] MEDS: guaiFENesin 12 HR 600 MG TABCR PO ×2 (08:35→21:15)
[2022-07-29] MEDS: AMIODARONE HCL 200 MG TABLET PO ×2 (08:35→17:36)
[2022-07-29] MEDS: polyethylene glycoL 3350 17 GM POWD.PACK PO (08:36)
[2022-07-29] MEDS: TAMSULOSIN HCL 0.4 MG CAPSULE PO (08:36)
[2022-07-29] MEDS: TIMOLOL MALEATE 0.5% OP SOLN 5 ML BOTTLE 1 DROP EACH EYE ×2 (08:36→17:36)
[2022-07-29] MEDS: BENZOCAINE/MENTHOL (*BKC) 18 EA LOZENGE 1 LOZENGE PO ×2 (08:37→17:37)
[2022-07-29] MEDS: PERFLUTREN LIPID MICROSPHERES 1.5 ML VIAL DILUTED TO 10 ML TOTAL VOLUME IV PUSH (09:30)
--- NOTE | 2022-07-29 09:30 | IVDEFINITY ---
Prior to administration of IV Definity the patient was educated on the risks and benefits of the imaging enhancing agent including potential adverse side effects. The patient verbalized understanding. Allergies were verified. No exclusion criteria were identified and at least one of the following inclusion criteria were met: 1) physician request, 2) patient technically difficult to image (per the [place] [employer] guidelines of two or more segments not discernable within the apical view), or 3) questionable left ventricular function. ?
[2022-07-29 09:37] LABS: Glucose Point of Care 152 mg/dl (65-105)
[2022-07-29] MEDS: INSULIN ASPART (*BKC) 100 UNITS/ML SUB-Q ×4 (09:50→17:49)
[2022-07-29 12:14] LABS: Glucose Point of Care 218 mg/dl (65-105)
--- NOTE | 2022-07-29 12:22 | PM.PNNEP ---
Progress Note: A&P Assessment and Plan (1) Acute kidney injury: Code(s): N17.9 - Acute kidney failure, unspecified Status: Acute Assessment and Plan: suspect ATN from infection (bladder/UTI + epididymitis) complicated by prostatic retention baseline creatinine/renal function normal evaluation to date: urine electrolytes non-prerenal UA c/w bladder infection/UTI urine sediment with muddy brown casts CPK normal creatinine slowly improving excellent urine output follow trend of repeat labs and UOP (2) Sepsis: Code(s): A41.9 - Sepsis, unspecified organism Status: Acute Assessment and Plan: due to UTI + epididymitis urine culture with Klebsiella blood cultures negative to date continue antibiotic therapy (3) HTN (hypertension): Code(s): I10 - Essential (primary) hypertension Status: Chronic Assessment and Plan: reasonable control at this time follow trend of hemodynamics (4) Diabetes mellitus: Code(s): E11.9 - Type 2 diabetes mellitus without complications Status: Chronic Assessment and Plan: follow accuchecks glycemic control Would not be opposed to discharge if renal function continues to improve and her has close follow-up/repeat labs fairly soon after discharge Will continue to follow. Subjective Date/time seen: 07/29/22 12:22 Quite anxious for discharge; renal function continues to improve (albeit slowly); making urine but still with lower extremity/scrotal swelling present; no other acute complaints voiced at this time; otherwise, feels reasonably well. Exam Narrative: General: WD/WN in NAD Heart: normal S1 and S2; no rub Lungs: clear to auscultation Abdomen: soft, nontender, nondistended, positive bowel sounds Extremities: no cyanosis or clubbing; 1+ edema (scrotal edema noted as well) Skin: no rash Objective Data Vital Signs Vital Signs: Vital Signs Temp Pulse Resp BP Pulse Ox O2 Del Method 07/29/22 08:00 72 18 99 Room Air 07/29/22 08:35 74 07/29/22 08:34 74 07/29/22 05:18 97.2 F L 83 22 H 110/70 92 07/28/22 20:00 78 17 98 Room Air 07/28/22 20:33 78 07/28/22 20:20 97.6 F 76 17 113/56 L 98 07/28/22 17:31 79 Intake/Output Intake/Output: Intake & Output 07/26/22 07/27/22 07/28/22 07/29/22 23:59 23:59 23:59 23:59 Intake Total 1200 820 960 340 Output Total 1975 1150 Balance -775 -330 960 340 Meds/Results Medications: Active Medications Generic Name Dose Route Start Last Admin Trade Name Freq PRN Reason Stop Dose Admin Acetaminophen 650 mg 07/23/22 12:09 Acetaminophen 325 Mg Tablet PO Q4H PRN Headache Albuterol 2 puff 07/20/22 08:37 07/26/22 03:31 Albuterol Sulfate (*Sp) Aerosol 1 Puff INHALATION 2 puff QID PRN Administration shortness of breath or wheezing Amiodarone HCl 200 mg 07/20/22 00:15 07/29/22 08:35 Amiodarone Hcl 200 Mg Tablet PO 200 mg BID STEVEN Administration Apixaban 5 mg 07/20/22 09:00 07/29/22 08:34 Apixaban 5 Mg Tablet PO 5 mg BID STEVEN Administration Ascorbic Acid 500 mg 07/21/22 09:00 07/29/22 08:34 Ascorbic Acid 500 Mg Tablet PO 500 mg DAILY STEVEN Administration Benzocaine 1 lozenge 07/26/22 06:54 07/29/22 08:37 Benzocaine/Menthol (*Bkc) 18 Ea Lozenge PO 1 lozenge PRN PRN Administration Sore Throat Bisacodyl 10 mg 07/26/22 11:19 Bisacodyl 10 Mg Suppository RECTAL QAM PRN Constipation Cyanocobalamin 1,000 mcg 07/21/22 09:00 07/29/22 08:34 Cyanocobalamin 1,000 Mcg Tablet PO 1,000 mcg DAILY STEVEN Administration Dextrose 12.5 gm 07/19/22 22:12 Dextrose 50% 25 Gm/50 Ml Syringe IV PUSH PRN PRN Hypoglycemia Protocol Docusate Sodium 100 mg 07/25/22 21:00 07/29/22 08:35 Docusate Sodium 100 Mg Capsule PO 100 mg Q12HR STEVEN Administration Finasteride 5
--- NOTE | 2022-07-29 12:22 | P.PNNP_ITS ---
Progress Note: A&P Assessment and Plan (1) Acute kidney injury: Code(s): N17.9 - Acute kidney failure, unspecified Status: Acute Assessment and Plan: * suspect ATN from infection (bladder/UTI + epididymitis) complicated by prostatic retention * baseline creatinine/renal function normal * evaluation to date: * urine electrolytes non-prerenal * UA c/w bladder infection/UTI * urine sediment with muddy brown casts * CPK normal * creatinine slowly improving * excellent urine output * follow trend of repeat labs and UOP (2) Sepsis: Code(s): A41.9 - Sepsis, unspecified organism Status: Acute Assessment and Plan: * due to UTI + epididymitis * urine culture with Klebsiella * blood cultures negative to date * continue antibiotic therapy (3) HTN (hypertension): Code(s): I10 - Essential (primary) hypertension Status: Chronic Assessment and Plan: * reasonable control at this time * follow trend of hemodynamics (4) Diabetes mellitus: Code(s): E11.9 - Type 2 diabetes mellitus without complications Status: Chronic Assessment and Plan: * follow accuchecks * glycemic control Would not be opposed to discharge if renal function continues to improve and her has close follow-up/repeat labs fairly soon after discharge Will continue to follow. Subjective Date/time seen: 07/29/22 12:22 Quite anxious for discharge; renal function continues to improve (albeit slowly); making urine but still with lower extremity/scrotal swelling present; no other acute complaints voiced at this time; otherwise, feels reasonably well. Exam Narrative: General: WD/WN in NAD Heart: normal S1 and S2; no rub Lungs: clear to auscultation Abdomen: soft, nontender, nondistended, positive bowel sounds Extremities: no cyanosis or clubbing; 1+ edema (scrotal edema noted as well) Skin: no rash Objective Data Vital Signs Vital Signs: Vital Signs Temp Pulse Resp BP Pulse Ox O2 Del Method 07/29/22 08:00 72 18 99 Room Air 07/29/22 08:35 74 07/29/22 08:34 74 07/29/22 05:18 97.2 F L 83 22 H 110/70 92 07/28/22 20:00 78 17 98 Room Air 07/28/22 20:33 78 07/28/22 20:20 97.6 F 76 17 113/56 L 98 07/28/22 17:31 79 Intake/Output Intake/Output: Intake & Output 07/26/22 07/27/22 07/28/22 07/29/22 23:59 23:59 23:59 23:59 Intake Total 1200 820 960 340 Output Total 1975 1150 Balance -775 -895 960 340 Meds/Results Medications: Active Medications Generic Name Dose Route Start Last Admin Trade Name Freq PRN Reason Stop Dose Admin Acetaminophen 650 mg 07/23/22 12:09 Acetaminophen 325 Mg Tablet PO Q4H PRN Headache Albuterol 2 puff 07/20/22 08:37 07/26/22 03:31 Albuterol Sulfate (*Sp) Aerosol 1 Puff INHALATION 2 puff QID PRN Administration shortness of breath or wheezing Amiodarone HCl 200 mg 07/20/22 00:15 07/29/22 08:35 Amiodarone Hcl 200 Mg Tablet PO 200 mg BID STEVEN Administration Apixaban 5 mg 07/20/22 09:00 07/29/22 08:34 Apixab
--- NOTE | 2022-07-29 14:15 | PM.IMPN ---
Progress Note: A&P Assessment and Plan (1) Sepsis: Code(s): A41.9 - Sepsis, unspecified organism Status: Acute Assessment and Plan: septic on presentation evident by fever, tachycardia, leukocytosis, hypotension in the setting of acute UTI lactic within normal limits continue IV antibiotics as described below Hypotension resolved, BP remaining stable T-max 102.6?.? Remaining afebrile since 07/20 Leukocytosis going back up today 15.0 blood cultures are negative monitor vital signs and urine output Resolved (2) UTI (urinary tract infection): Code(s): N39.0 - Urinary tract infection, site not specified Status: Acute Assessment and Plan: urinalysis grossly abnormal on presentation Urine culture with growth of >100k Klebsiella pneumoniae Continue IV Levaquin for concurrent coverage of epididymitis based on susceptibility report from urine culture (3) Epididymitis: Code(s): N45.1 - Epididymitis Status: Acute Assessment and Plan: ?patient complained of scrotal edema and pain on 07/22 scrotal ultrasound revealed right epididymitis with no testicular mass lesion or torsion CT of abdomen/pelvis with no acute findings aside from mildly large para-aortic lymph node which was felt to be reactive appreciate urology consultation continue IV Levaquin and Flagyl scrotal elevation Catheter has been removed, has been able to void (4) Acute kidney injury: Code(s): N17.9 - Acute kidney failure, unspecified Status: Acute Assessment and Plan: Baseline creatinine appears to be 1.3. Creatinine continues to trend down and is currently 2.80 today ?initially felt to be prerenal secondary to dehydration/diuresis vs ATN from acute infection,?likely worsened due to hypoperfusion from hypotension ?appreciate nephrology recommendations ?furosemide, metformin, and lisinopril on hold ?renal US unremarkable, no evidence of hydronephrosis or renal calculi ?patient has been rehydrated with IV fluids with no improvement.? IV fluids discontinued on 07/23 per Nephrology recommendations Urine output improved ?repeat renal ultrasound on 07/23 unremarkable, no evidence of obstruction ?monitor BMP closely (5) Atrial fibrillation with rapid ventricular response: Code(s): I48.91 - Unspecified atrial fibrillation Status: Acute Assessment and Plan: ?patient with onset of atrial fibrillation with rapid ventricular response? on 07/21 with heart rate in the 140s.? Patient previously in sinus rhythm. ?Patient given 1 time dose of digoxin with improvement in heart rate ?continue metoprolol tartrate and amiodarone ?continue Eliquis for stroke prophylaxis ?continue to monitor on telemetry Resolved at this time (6) Hyponatremia: Code(s): E87.1 - Hypo-osmolality and hyponatremia Status: Acute Assessment and Plan: sodium improved to 133 today. ?IV fluids discontinued 07/23 fluid restriction diet 1200 ml/day implemented per nephrology recommendations ?monitor sodium levels closely (7) Altered mental status: Code(s): R41.82 - Altered mental status, unspecified Status: Resolved Assessment and Plan: likely secondary to urinary tract infection ?mental status has returned back to baseline ?plan as above Resolved (8) Chronic heart failure: Code(s): I50.9 - Heart failure, unspecified Status: Acute Assessment and Plan: ?history of CHF, no prior echo available for review ?patient noted to be mildly edematous on presentation, therefore given IV Lasix 40 mg IV b.i.d. ?CXR on presentation without? evidence of pulmonary edema Echo EF of 65-70% with a normal diastolic heart failure Currently appears to be chronic heart failure more than likely diastolic with the bilateral lower extremity edema ?Lasix discontinued on 07/20 given worsened renal function ?monitor intake and outpu
[2022-07-29 17:46] LABS: Glucose Point of Care 184 mg/dl (65-105)
[2022-07-29] MEDS: SENNOSIDES 8.6 MG TABLET PO (21:15)
[2022-07-29] MEDS: LATANOPROST 0.005% OP SOLN 2.5 ML BTL 1 DROP EACH EYE (21:15)
[2022-07-29 21:42] LABS: Glucose Point of Care 261 mg/dl (65-105)
[2022-07-29] MEDS: ALBUTEROL SULFATE (*SP) AEROSOL 1 PUFF 2 PUFF INHALATION (22:35)
--- NOTE | 2022-07-29 22:38 | PCRCNOTE ---
pt continues to refuse use of hospital cpap/bipap unit and stated that he could not sleep with his home unit.
[2022-07-30 04:32] VITALS: BP 104/69; PULSE 71; RESP 20; TEMP 36.4; O2SAT 97
[2022-07-30] MEDS: metroNIDAZOLE 250 MG TABLET 500 MG PO ×2 (06:19→13:01)
[2022-07-30 08:46] LABS: Glucose Point of Care 152 mg/dl (65-105)
[2022-07-30 09:08] VITALS: PULSE 72
[2022-07-30] MEDS: CHOLECALCIFEROL 1,000 UNITS TABLET 2000 UNITS PO (09:08)
[2022-07-30] MEDS: CYANOCOBALAMIN 1,000 MCG TABLET 1000 MCG PO (09:08)
[2022-07-30] MEDS: METOPROLOL TARTRATE 25 MG TABLET PO (09:08)
[2022-07-30] MEDS: ASCORBIC ACID 500 MG TABLET PO (09:08)
[2022-07-30] MEDS: ROSUVASTATIN 10 MG TABLET PO (09:09)
[2022-07-30 09:10] VITALS: PULSE 72
[2022-07-30] MEDS: guaiFENesin 12 HR 600 MG TABCR PO (09:10)
[2022-07-30] MEDS: DOCUSATE SODIUM 100 MG CAPSULE PO (09:10)
[2022-07-30] MEDS: APIXABAN 5 MG TABLET PO (09:10)
[2022-07-30] MEDS: AMIODARONE HCL 200 MG TABLET PO (09:10)
[2022-07-30] MEDS: FINASTERIDE 5 MG TABLET PO (09:10)
[2022-07-30] MEDS: TAMSULOSIN HCL 0.4 MG CAPSULE PO (09:10)
[2022-07-30] MEDS: BENZOCAINE/MENTHOL (*BKC) 18 EA LOZENGE 1 LOZENGE PO (09:15)
[2022-07-30] MEDS: INSULIN ASPART (*BKC) 100 UNITS/ML SUB-Q ×3 (09:16→13:03)
[2022-07-30] MEDS: TIMOLOL MALEATE 0.5% OP SOLN 5 ML BOTTLE 1 DROP EACH EYE (09:16)
[2022-07-30 10:30] LABS: Basophils Absolute Auto 0.1 K/mm3 (0.0-0.1); Basophils Percent Auto 0.4 % (0.2-1.2); Eosinophils Percent Auto 0.1 % (0-4.4); Hemoglobin 10.3 g/dL (14.0-18.0); Immature Granulocyte Absolute 0.19 K/mm3 (0.00-0.031); Immature Granulocyte Percent A 1.4 % (0-0.5); Lymphocytes Percent Auto 26.4 % (18.3-44.2); Mean Corpuscular HGB Conc 31.2 g/dl (32-36); Mean Corpuscular Hemoglobin 28.4 pg (26-34); Mean Corpuscular Volume 90.9 fl (80-100); Monocytes Absolute Auto 0.5 K/mm3 (0.1-0.6); Neutrophils Absolute Auto 9.2 K/mm3 (1.3-6.7); Neutrophils Percent Auto 67.7 % (45.5-73.1); Platelet Count Result 155 k/mm3 (150-375); Red Blood Count 3.63 M/mm3 (4.6-6.20); Red Cell Distribution Width 16.5 % (11.5-14.5); White Blood Count 13.6 K/mm3 (4.5-10.0)
[2022-07-30 10:45] LABS: Albumin Level 2.9 g/dL (3.5-5.1); Anion Gap 6 mmol/L (8-16); Blood Urea Nitrogen 47 mg/dL (9-20); Calcium 8.3 mg/dL (8.4-10.2); Carbon Dioxide 25 mmol/L (22-30); Chloride 103 mmol/L (98-107); Estimated CRCL calculation 26 ml/min; Estimated Glomerular Filt Rate 26; Glucose 199 mg/dL (65-110); Phosphorus 3.6 mg/dL (2.5-4.5); Potassium 3.9 mmol/L (3.4-5.0); Sodium 134 mmol/L (137-145)
[2022-07-30 10:49] LABS: Alanine Aminotransferase 28 U/L (6-50); Albumin Level 2.8 g/dL (3.5-5.1); Alkaline Phosphatase 75 U/L (38-126); Anion Gap 5 mmol/L (8-16); Aspartate Amino Transferase 33 U/L (17-59); Bilirubin,Total 0.5 mg/dL (0.2-1.3); Blood Urea Nitrogen 50 mg/dL (9-20); Calcium 7.9 mg/dL (8.4-10.2); Carbon Dioxide 26 mmol/L (22-30); Chloride 102 mmol/L (98-107); Estimated CRCL calculation 28 ml/min; Estimated Glomerular Filt Rate 29; Glucose 194 mg/dL (65-110); Potassium 4.1 mmol/L (3.4-5.0); Sodium 133 mmol/L (137-145)
--- NOTE | 2022-07-30 11:30 | P.DS_ITS ---
DS: Admitting Diagnosis Discharge Date 07/30/22 1130 Admitting Diagnosis Epididymitis, UTI, OSIEL DS: Discharge Diagnosis Discharge Diagnosis (1) Sepsis: Code(s): A41.9 - Sepsis, unspecified organism Status: Acute Assessment and Plan: septic on presentation evident by fever, tachycardia, leukocytosis, hypotension in the setting of acute UTI * lactic within normal limits * continue IV antibiotics as described below * Hypotension resolved, BP remaining stable * T-max 102.6?.? Remaining afebrile since 07/20 * Leukocytosis going back up today 15.0 * blood cultures are negative * monitor vital signs and urine output * Resolved (2) UTI (urinary tract infection): Code(s): N39.0 - Urinary tract infection, site not specified Status: Acute Assessment and Plan: urinalysis grossly abnormal on presentation * Urine culture with growth of >100k Klebsiella pneumoniae * Continue IV Levaquin for concurrent coverage of epididymitis based on susceptibility report from urine culture (3) Epididymitis: Code(s): N45.1 - Epididymitis Status: Acute Assessment and Plan: ?patient complained of scrotal edema and pain on 07/22 * scrotal ultrasound revealed right epididymitis with no testicular mass lesion or torsion * CT of abdomen/pelvis with no acute findings aside from mildly large para- aortic lymph node which was felt to be reactive * appreciate urology consultation * continue IV Levaquin and Flagyl * scrotal elevation * Catheter has been removed, has been able to void (4) Acute kidney injury: Code(s): N17.9 - Acute kidney failure, unspecified Status: Acute Assessment and Plan: Baseline creatinine appears to be 1.3. Creatinine continues to trend down and is currently 2.80 today * ?initially felt to be prerenal secondary to dehydration/diuresis vs ATN from acute infection,?likely worsened due to hypoperfusion from hypotension * ?appreciate nephrology recommendations * ?furosemide, metformin, and lisinopril on hold * ?renal US unremarkable, no evidence of hydronephrosis or renal calculi * ?patient has been rehydrated with IV fluids with no improvement.? IV fluids discontinued on 07/23 per Nephrology recommendations * Urine output improved * ?repeat renal ultrasound on 07/23 unremarkable, no evidence of obstruction * ?monitor BMP closely (5) Atrial fibrillation with rapid ventricular response: Code(s): I48.91 - Unspecified atrial fibrillation Status: Acute Assessment and Plan: ?patient with onset of atrial fibrillation with rapid ventricular response? on 07/21 with heart rate in the 140s.? Patient previously in sinus rhythm. * ?Patient given 1 time dose of digoxin with improvement in heart rate * ?continue metoprolol tartrate and amiodarone * ?continue Eliquis for stroke prophylaxis * ?continue to monitor on telemetry * Resolved at this time (6) Hyponatremia: Code(s): E87.1 - Hypo-osmolality and hyponatremia Status: Acute Assessment and Plan: sodium improved to 133 today. * ?IV fluids discontinued 07/23 * fluid restriction diet 1200 ml/day implemented per nephrology recommendations * ?monitor sodium levels closely (7) Altered mental status: Code(s): R41.82 - Altered mental status, unspecified Status: Resolved Assessment and Plan: likely secondary to urinary tract infection * ?mental status has returned back to baseline * ?plan as above * Resolved (8) Chronic heart
[2022-07-30 12:36] LABS: Glucose Point of Care 236 mg/dl (65-105)
--- NOTE | 2022-07-30 12:48 | PM.PNNEP ---
Progress Note: A&P Assessment and Plan (1) Acute kidney injury: Code(s): N17.9 - Acute kidney failure, unspecified Status: Acute Assessment and Plan: suspect ATN from infection (bladder/UTI + epididymitis) complicated by prostatic retention baseline creatinine/renal function normal evaluation to date: urine electrolytes non-prerenal UA c/w bladder infection/UTI urine sediment with muddy brown casts CPK normal creatinine slowly improving excellent urine output follow trend of repeat labs and UOP (2) Sepsis: Code(s): A41.9 - Sepsis, unspecified organism Status: Acute Assessment and Plan: due to UTI + epididymitis urine culture with Klebsiella blood cultures negative to date continue antibiotic therapy (3) HTN (hypertension): Code(s): I10 - Essential (primary) hypertension Status: Chronic Assessment and Plan: reasonable control at this time follow trend of hemodynamics (4) Diabetes mellitus: Code(s): E11.9 - Type 2 diabetes mellitus without complications Status: Chronic Assessment and Plan: follow accuchecks glycemic control Would not be opposed to discharge if renal function continues to improve and he has close follow-up/repeat labs fairly soon after discharge Will continue to follow. Subjective Date/time seen: 07/30/22 12:48 No new issues or complaints voiced at the time of my visit; anxious to go home as soon as possible; renal function continues to improve slowly; swelling/edema still present and maybe a bit better. Exam Narrative: General: WD/WN in NAD Heart: normal S1 and S2; no rub Lungs: clear to auscultation Abdomen: soft, nontender, nondistended, positive bowel sounds Extremities: no cyanosis or clubbing; 1+ edema (scrotal edema noted as well) Skin: no nodules Objective Data Vital Signs Vital Signs: Vital Signs Temp Pulse Resp BP Pulse Ox O2 Del Method 07/30/22 09:10 72 07/30/22 09:08 72 07/30/22 04:32 97.6 F 71 20 104/69 97 07/29/22 22:39 98 Room Air 07/29/22 20:00 Room Air 07/29/22 22:00 97 F L 80 20 138/53 L 98 07/29/22 21:15 70 07/29/22 17:36 70 07/29/22 14:00 98.4 F 72 18 103/47 L 99 Intake/Output Intake/Output: Intake & Output 07/27/22 07/28/22 07/29/22 07/30/22 23:59 23:59 23:59 23:59 Intake Total 820 960 580 240 Output Total 1150 Balance -330 960 580 240 Meds/Results Medications: Active Medications Generic Name Dose Route Start Last Admin Trade Name Freq PRN Reason Stop Dose Admin Acetaminophen 650 mg 07/23/22 12:09 Acetaminophen 325 Mg Tablet PO Q4H PRN Headache Albuterol 2 puff 07/20/22 08:37 07/29/22 22:35 Albuterol Sulfate (*Sp) Aerosol 1 Puff INHALATION 2 puff QID PRN Administration shortness of breath or wheezing Amiodarone HCl 200 mg 07/20/22 00:15 07/30/22 09:10 Amiodarone Hcl 200 Mg Tablet PO 200 mg BID STEVEN Administration Apixaban 5 mg 07/20/22 09:00 07/30/22 09:10 Apixaban 5 Mg Tablet PO 5 mg BID STEVEN Administration Ascorbic Acid 500 mg 07/21/22 09:00 07/30/22 09:08 Ascorbic Acid 500 Mg Tablet PO 500 mg DAILY STEVEN Administration Benzocaine 1 lozenge 07/26/22 06:54 07/30/22 09:15 Benzocaine/Menthol (*Bkc) 18 Ea Lozenge PO 1 lozenge PRN PRN Administration Sore Throat Bisacodyl 10 mg 07/26/22 11:19 Bisacodyl 10 Mg Suppository RECTAL QAM PRN Constipation Cyanocobalamin 1,000 mcg 07/21/22 09:00 07/30/22 09:08 Cyanocobalamin 1,000 Mcg Tablet PO 1,000 mcg DAILY STEVEN Administration Dextrose 12.5 gm 07/19/22 22:12 Dextrose 50% 25 Gm/50 Ml Syringe IV PUSH PRN PRN Hypoglycemia Protocol Docusate Sodium 100 mg 07/25/22 21:00 07/30/22 09:10 Docusate Sodium 100 Mg Capsule PO 100 mg Q12HR STEVEN Administration Finasteride 5 mg
[2022-07-30 14:00] VITALS: BP 108/58; PULSE 69; RESP 18; TEMP 36.7; O2SAT 99
== END 2022-07-30 16:25 | disposition home health service (06) | DRG 871 ==
LOC: ANHED 19:01 → ANH2MED 23:23 → ANHIMU 07-21 18:59 → ANH3MED 07-23 21:43
PROVIDERS: Family Medicine; Internal Medicine Nephrology; Physician Assistant; Admitting Provider Internal Medicine; Emergency Provider Emergency Medicine; PCP Family Medicine; Visit Provider Nurse Practitioner
DX: A41.9 Sepsis, unspecified organism (principal); G93.41 Metabolic encephalopathy; N17.0 Acute kidney failure with tubular necrosis; N39.0 Urinary tract infection, site not specified; E87.1 Hypo-osmolality and hyponatremia; I50.32 Chronic diastolic (congestive) heart failure; Z68.41 Body mass index [BMI] 40.0-44.9, adult; I11.0 Hypertensive heart disease with heart failure; E66.9 Obesity, unspecified; E78.5 Hyperlipidemia, unspecified; E78.6 Lipoprotein deficiency; E11.9 Type 2 diabetes mellitus without complications; I48.91 Unspecified atrial fibrillation; B96.1 Klebsiella pneumoniae [K. pneumoniae] as the cause of diseases classified elsewhere; Z20.822 Contact with and (suspected) exposure to COVID-19; N45.1 Epididymitis; Z79.51 Long term (current) use of inhaled steroids; Z79.4 Long term (current) use of insulin; Z79.84 Long term (current) use of oral hypoglycemic drugs; Z79.899 Other long term (current) drug therapy; Z88.2 Allergy status to sulfonamides
CPT/HCPCS: 36415; 70450; 71045; 71046; 74176; 76775; 76870; 80048; 80053; 80069; 80307; 81001; 82550; 82570; 82948; 83036; 83605; 83690; 83735; 84156; 84295; 84300; 84443; 85025; 85027; 85999; 87040; 87077; 87086; 87088; 87186; 87491; 87591; 87636; 93005; 93970; 93976; 94640; 96361; 96365; 96366; 96367; 96375; 96376; 97110; 97161; 97165; 97530; 97535; 99285; A9270; C8929; G0378; J0131; J0696; J1160; J1815; J1940; J1956; J2405; J3370; J3475; J7030; J7040; Q9957

== ENCOUNTER 2024-03-18 09:42 | Emergency (ER) | payer MEDICARE, SELFPAY ==
[2024-03-18] VITALS (16 sets, daily range): BP systolic 112–137; BP diastolic 56–77; PULSE 80–168; RESP 13–20; TEMP 36.6; O2SAT 73–100
--- NOTE | ~2024-03-18 | XR_ITS ---
EXAMINATION: XR hip RT 2V w AP pelvis DATE: 03/18/2024 10:54 INDICATION: Right hip pain. Fall. TECHNIQUE: An anteroposterior view of the pelvis and 2 views of right hip were obtained. COMPARISON: None. FINDINGS: There is a comminuted intertrochanteric fracture proximal right femur. The main distal frac ture fragment demonstrates 18 mm lateral displacement, posterior angulation, and 13 mm shortening. Th ere is severe lumbar spondylosis. There is mild osteoarthritis of the hips. IMPRESSION: 1. Comminuted intertrochanteric fracture of proximal right femur. 2. Mild osteoarthritis of the hips. Reviewed, dictated and finalized at location A.
--- NOTE | ~2024-03-18 | XR_ITS ---
EXAMINATION: XR chest 1V DATE: 03/18/2024 10:54 INDICATION: Chronic interstitial lung disease. Preop. TECHNIQUE: A single frontal view of the chest was obtained. COMPARISON: Chest single view 07/29/2022, CT abdomen and pelvis 07/22/22 FINDINGS: There are chronic reticular opacities in right mid and lower lung zones and left lower lung zone. No pleural effusion or pneumothorax. The heart size is normal. There are surgical clips in the right axilla. IMPRESSION: 1. Stable chronic interstitial lung disease. Reviewed, dictated and finalized at location A.
--- NOTE | ~2024-03-18 | XR_ITS ---
EXAMINATION: XR elbow LT min 3V DATE: 03/18/2024 10:54 INDICATION: Skin tear at the left elbow post fall TECHNIQUE: Anteroposterior, two oblique and lateral views of the left elbow were obtained. COMPARISON: None. FINDINGS: Alignment is normal. No fracture or joint effusion. 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 Minimal enthesopathic ossification/enthesophytes at the medial and lateral epico ndylar origins of the common flexor and extensor tendon wads respectively. IV at the antecubital lucinda a. Lesser calcific a cyst along the arteries in the proximal forearm. IMPRESSION: 1. 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 No elbow joint effusion or acute osseous abnormality. Reviewed, dictated and finalized at location A.
--- NOTE | 2024-03-18 09:49 | ECG_ITS ---
Test Date: 2024-03-18 09:57:17 Measurements Intervals [place] Rate: 80 P: 24 FL: 154 QRS: -1 QRSD: 93 T: 9 QT: 378 QTc: 438 Interpretive Statements SINUS RHYTHM WITH MARKED SINUS ARRHYTHMIA NORMAL ECG No previous ECG available for comparison Electronically Signed On 03-18-2024 11:02:54 CDT by Jeramy Vallejo M.D.
--- NOTE | 2024-03-18 09:56 | ED.LOWEXIN ---
HPI - Extremity Injury (Lower) General Chief Complaint: Extremity Injury, Lower <ZENIA Dong Last Filed: 03/18/24 16:49> Stated Complaint: fall, hip injury <ZENIA Dong Last Filed: 03/18/24 16:49> Time Seen by Provider: 03/18/24 09:49 <ZENIA Dong Last Filed: 03/18/24 16:49> Source: patient <ZENIA Dong Last Filed: 03/18/24 16:49> Mode of arrival: EMS <ZENIA Dong Last Filed: 03/18/24 16:49> Limitations: no limitations <ZENIA Dong Last Filed: 03/18/24 16:49> History of Present Illness HPI Narrative: patient is an 83-year-old male who presents the ED via EMS with report of a fall. Patient reports he typically uses a walker for assistance with ambulation. He states he stepped away from his walker this morning and tripped and fell, landing on his right side. He landed directly onto his right hip. He did not his head or lose consciousness. Denies dizziness or lightheadedness prior to the fall. Complains of pain to his right hip, unable to ambulate so EMS was called. He did also sustain a skin tear to his left elbow. Tetanus unknown. Denies any numbness, tingling, focal weakness, neck or back pain. Patient is on Eliquis due to history of AFib. He took his morning dose this morning. <ZENIA Dong Last Filed: 03/18/24 16:49> Related Data Home Medications: Home Medications Medication Instructions Recorded Confirmed glimepiride 4 mg tablet 4 mg PO DAILY 08/02/20 07/20/22 latanoprost 0.005 % eye drops 1 drp ophthalmic (eye) DAILY 08/02/20 07/20/22 lisinopril 10 mg tablet 10 mg PO DAILY 08/02/20 07/20/22 metformin 1,000 mg tablet 1,000 mg PO BID 08/02/20 07/20/22 metoprolol tartrate 25 mg tablet 25 mg PO BID 08/02/20 07/20/22 tamsulosin 0.4 mg capsule 0.4 mg PO DAILY 08/02/20 07/20/22 apixaban 5 mg tablet (Eliquis) 5 mg PO BID 07/20/22 07/20/22 ascorbic acid (vitamin C) 500 mg 500 mg PO DAILY 07/20/22 07/20/22 tablet cholecalciferol (vitamin D3) 50 50 mcg PO DAILY 07/20/22 07/20/22 mcg (2,000 unit) tablet cyanocobalamin (vitamin B-12) 1,000 mcg PO DAILY 07/20/22 07/20/22 1,000 mcg tablet finasteride 5 mg tablet (Proscar) 5 mg PO DAILY 07/20/22 07/20/22 furosemide 40 mg tablet 40 mg PO BID 07/20/22 07/20/22 insulin aspart U-100 100 unit/mL 8 unit subcut TIDWM 07/20/22 07/20/22 (3 mL) subcutaneous pen (Novolog FlexPen U-100 Insulin aspart) rosuvastatin 20 mg tablet 10 mg PO DAILY 07/20/22 07/20/22 timolol maleate 0.5 % eye drops 1 drp ophthalmic (eye) BID 07/20/22 07/20/22 <Meghan Tobin PA-C - Last Filed: 03/18/24 16:49> Allergies/Adverse Reactions: Allergies Allergy/AdvReac Type Severity Reaction Status Date / Time canagliflozin Allergy Unknown Verified 03/18/24 09:50 cefepime Allergy Unknown Verified 03/18/24 09:50 sulfamethoxazole AdvReac Other Verified 03/18/24 09:50 [From Bactrim] trimethoprim [From Bactrim] AdvReac Other Verified 03/18/24 09:50 <Meghan Tobin PA-C - Last Filed: 03/18/24 16:49> Review of Systems Review of Systems: All systems reviewed & are unremarkable except as noted in HPI. <Meghan Tobin PA-C - Last Filed: 03/18/24 16:49> All systems reviewed & are unremarkable except as noted in HPI and below <Meghan Tobin PA-C - Last Filed: 03/18/24 16:49> [facility] Past Medical History Medical History: Medical History Atrial fibrillation Diabetes mellitus HTN (hypertension) <Meghan Tobin PA-C - Last Filed: 03/18/24 16:49> Social History Social History: Social History Smoking status: Never smoker Alcohol intake: never Substance use: never Lack of Transportation: No Lack of Food: Never True Current Housing: I Have Housing
[2024-03-18 10:07] LABS: Basophils Absolute Auto 0.1 K/mm3 (0.0-0.1); Basophils Percent Auto 0.6 % (0.2-1.2); Eosinophils Absolute Auto 0.1 K/mm3 (0-0.3); Eosinophils Percent Auto 0.7 % (0-4.4); Hematocrit 35.6 % (42.0-52.0); Immature Granulocyte Absolute 0.07 K/mm3 (0.00-0.031); Immature Granulocyte Percent A 0.6 % (0-0.5); Lymphocytes Percent Auto 49.1 % (18.3-44.2); Mean Corpuscular HGB Conc 30.9 g/dl (32-36); Mean Corpuscular Volume 90.6 fl (80-100); Mean Platelet Volume 8.7 fl (7.4-10.4); Monocytes Absolute Auto 0.8 K/mm3 (0.1-0.6); Monocytes Percent Auto 6.6 % (2.6-8.5); Neutrophils Absolute Auto 5.2 K/mm3 (1.3-6.7); Neutrophils Percent Auto 42.4 % (45.5-73.1); Platelet Count Result 209 k/mm3 (150-375); Red Blood Count 3.93 M/mm3 (4.6-6.20); Red Cell Distribution Width 14.6 % (11.5-14.5); White Blood Count 12.2 K/mm3 (4.5-10.0)
[2024-03-18] MEDS: TETANUS,DIPHTHERIA,AC PERTUSSIS ADULT (0.5 ML) BOOSTRIX IM (10:15)
[2024-03-18 10:18] LABS: INR 1.4; Partial Thromboplastin Time 29.3 Seconds (22.3-36.8); Prothrombin Time 17.7 Seconds (11.1-14.7)
[2024-03-18 10:21] LABS: Alanine Aminotransferase 23 U/L (6-50); Albumin Level 3.9 g/dL (3.5-5.1); Alkaline Phosphatase 91 U/L (38-126); Anion Gap 6 mmol/L (4-12); Aspartate Amino Transferase 28 U/L (17-59); Bilirubin,Total 0.5 mg/dL (0.2-1.3); Blood Urea Nitrogen 37 mg/dL (9-20); Calcium 8.9 mg/dL (8.4-10.2); Carbon Dioxide 34 mmol/L (22-30); Chloride 97 mmol/L (98-107); Estimated CRCL calculation 38 ml/min; Estimated Glomerular Filt Rate 45; Glucose 171 mg/dL (65-110); Potassium 3.3 mmol/L (3.4-5.0); Sodium 137 mmol/L (137-145)
[2024-03-18] MEDS: POTASSIUM CHLORIDE 20 MEQ ER TABLET PO (10:50)
[2024-03-18] MEDS: MORPHINE SULFATE (*CRX) 4 MG/ML INJ IV PUSH ×2 (11:01→14:44)
[2024-03-18] MEDS: ONDANSETRON INJ 4 MG/2 ML VIAL IV PUSH ×2 (11:02→14:44)
[2024-03-18 12:14] LABS: Add Urine Microscopic? YES; Appearance Urine Cloudy (Clear); Bacteria Urine 4+ /hpf; Bilirubin Urine Negative (Negative); Blood Urine Negative (Negative); Color Urine Yellow (Yellow); Glucose Urine UA Negative (Negative); Ketones Urine Negative (Negative); Leukocyte Esterase Ur 1+ LEU/UL (Negative); Nitrate Urine Negative (Negative); Non Pathogenic Casts 0-2; Protein Urine Negative (Negative); RBC Urine 0-2 /hpf (0-2); Specific Grav Ur 1.012 (1.001-1.035); Squamous Epithelial Cell Urine Occasional /hpf (Few); Urobilinogen Urine 0.2 mg/dL (<2.0); WBC Urine 21-50 /hpf (0-3); pH Urine 6.5 (5.0-9.0)
[2024-03-18] MEDS: LIDOCAINE HCL 2% GEL UROJET 10 ML PKG MUCOUS MEM (12:37)
--- NOTE | 2024-03-18 19:18 | PC.NURSE ---
[facility] paralegal supervisor states the transfer center will be calling shortly with a bed number. Charge Nurse notified.
--- NOTE | 2024-03-18 20:48 | ECG_ITS ---
Test Date: 2024-03-18 20:51:58 Measurements Intervals [place] Rate: 152 P: 0 VT: 0 QRS: -6 QRSD: 95 T: 15 QT: 271 QTc: 432 Interpretive Statements ATRIAL FIBRILLATION WITH RAPID VENTRICULAR RESPONSE NONSPECIFIC ST & T-WAVE ABNORMALITY ABNORMAL RHYTHM ECG Compared to ECG 03/18/2024 09:57:17 ATRIAL FIBRILLATION WITH RVR NOW PRESENT Electronically Signed On 03-19-2024 10:19:29 CDT by Nessa Lynn M.D.
[2024-03-18] MEDS: dilTIAZem HCl INJ 25 MG/5 ML VIAL 10 MG IV PUSH (20:57)
--- NOTE | 2024-03-18 21:10 | PC.NURSE ---
received call from [facility] transfer [place] stating patient got bed assignment [id number] bed 2 and provided number to call report. the accepting provider is Dr. Osborne. called report to MARCUS Tristan @[phone], all questions answered.
--- NOTE | 2024-03-18 21:21 | PC.NURSE ---
[facility] called back stating they will be changing bed assignment to a telemetry bed due to change in rhythm. transfer center now states patient will go to bed [id number]
[2024-03-18] MEDS: HYDROmorphone HCL INJ (*CRX) 1 MG/ML SYR 0.5 MG IV PUSH (21:37)
--- NOTE | 2024-03-18 21:37 | PC.NURSE ---
called report to MARCUS Nair @[phone] for patient to go to bed [id number] in the [facility] at [facility].
[2024-03-18] MEDS: dilTIAZem HCl INJ 25 MG/5 ML VIAL 15 MG IV PUSH (21:44)
--- NOTE | 2024-03-18 21:49 | PC.NURSE ---
Ems here at this time to transfer to [facility]
--- NOTE | 2024-03-18 21:58 | PC.NURSE ---
ems arrives to transfer patient at [id number]
== END 2024-03-18 22:11 | disposition short-term general hospital (02) ==
PROVIDERS: Emergency Provider Physician Assistant; PCP Family Medicine
DX: S72.141A Displaced intertrochanteric fracture of right femur, initial encounter for closed fracture (principal); S51.012A Laceration without foreign body of left elbow, initial encounter; N30.00 Acute cystitis without hematuria; I48.91 Unspecified atrial fibrillation; E11.9 Type 2 diabetes mellitus without complications; I10 Essential (primary) hypertension; Z79.4 Long term (current) use of insulin; W01.0XXA Fall on same level from slipping, tripping and stumbling without subsequent striking against object, initial encounter; Z23 Encounter for immunization
CPT/HCPCS: 36415; 71045; 73080; 73502; 80053; 81001; 85025; 85610; 85730; 87077; 87086; 87088; 90471; 90715; 93005; 96365; 96375; 96376; 99285; A9270; J0696; J1170; J2270; J2405